=== PATIENT | male | born 1975 | race Caucasian/White ===

== ENCOUNTER 2016-11-30 21:23 | Emergency (ER) | payer OTHER | END 2016-11-30 22:30 | disposition left against medical advice (07) | LOC: C.ER 21:23 | DX: R50.9 Fever, unspecified (principal); Z02.9 Encounter for administrative examinations, unspecified ==

== ENCOUNTER 2017-12-23 13:59 | Inpatient (IN) | payer MEDICAID, OTHER ==
[2017-12-23 14:11] VITALS: BMI 22.6
[2017-12-23 15:49] LABS: BASO # 0.1 K/uL (0.0-0.2); BASO % 0.9 % (0.0-2.0); EOS # 0.3 K/uL (0.0-0.7); EOS % 2.7 % (0.0-4.0); HEMOGLOBIN 11.8 g/dL (12.0-18.0); LYMPH # 1.7 K/uL (1.0-4.3); LYMPH % 13.5 % (20.0-40.0); MEAN CORPUSCULAR HGB CONC 34.2 g/dL (33.0-37.0); MEAN PLATELET VOLUME 7.3 fL (7.2-11.7); MONO # 1.2 K/uL (0.0-0.8); MONO % 9.5 % (0.0-10.0); NEUT % 73.4 % (50.0-75.0); RBC 4.06 Mil/uL (4.40-5.90); RED CELL DISTRIBUTION WIDTH 13.1 % (11.5-14.5); WHITE BLOOD COUNT 12.3 K/uL (4.8-10.8)
[2017-12-23 15:57] LABS: INR 1.2; PROTHROMBIN TIME 13.6 SECONDS (9.7-12.2)
--- NOTE | 2017-12-23 15:59 | RAD ---
Date of service: 12/23/2017 PROCEDURE: CHEST RADIOGRAPH, 1 VIEW HISTORY: Chest pain COMPARISON: 09/16/2014. FINDINGS: LUNGS: The lungs are well inflated and clear. PLEURA: No pneumothorax or pleural fluid seen. CARDIOVASCULAR: Normal. OSSEOUS STRUCTURES: No significant abnormalities. VISUALIZED UPPER ABDOMEN: Normal. OTHER FINDINGS: None. IMPRESSION: No active pulmonary disease.
[2017-12-23 16:31] LABS: ALBUMIN 3.3 g/dL (3.5-5.0); BLOOD UREA NITROGEN 10 mg/dL (9-20); CALCIUM 9.2 mg/dl (8.6-10.4); GFR AFRICAN-AMERICAN > 60; GFR NON-AFRICAN AMERICAN > 60
[2017-12-23 16:32] LABS: ALT/SGPT 18 U/L (21-72); AST/SGOT 15 U/L (17-59); B-TYPE NATRIURETIC PEPTIDE 174 pg/mL (0-450); LIPASE 162 U/L (23-300)
[2017-12-23] MEDS ORDERED: Sodium Chloride 0.9% 1,000 ML IV ONE (16:40)
[2017-12-23] MEDS ORDERED: (Novolin R) Insulin Human Regular 100 units/ml vial IV STA (16:41)
[2017-12-23] MEDS ORDERED: (Novolin R) Insulin Human Regular 100 units/ml vial ONE (16:51)
[2017-12-23] MEDS ORDERED: Sodium Chloride 0.9% 1,000 ML ONE (16:51)
--- NOTE | 2017-12-23 17:14 | C.PDOC ---
Time Seen by Provider: 12/23/17 15:08 Chief Complaint (Nursing): Chest Pain History Per: Patient, Family Onset/Duration Of Symptoms: Hrs (2) Current Symptoms Are (Timing): Still Present Context: Travel (Pt drove here from [place]) Severity: Moderate Quality: "Pain" Modifying Factors: Other Indicated Below Alleviating Factors: None Additional History Per: Prior Records Past Medical History Reviewed: Historical Data, Nursing Documentation, Vital Signs Vital Signs: Last Vital Signs Temp 98.2 F 12/23/17 14:11 Pulse 83 12/23/17 14:11 Resp 16 12/23/17 14:11 BP 150/83 12/23/17 14:11 Pulse Ox 96 12/23/17 17:41 - Medical History PMH: Asthma, CAD, Diabetes, HTN, Hypercholesterolemia Surgical History: Appendectomy, Coronary Stent (x4) Family History: States: Unknown Family Hx - Social History Hx Tobacco Use: Yes Hx Alcohol Use: No Hx Substance Use: No - Immunization History Hx Tetanus Toxoid Vaccination: Yes Hx Influenza Vaccination: No Hx Pneumococcal Vaccination: No Review Of Systems Except As Marked, All Systems Reviewed And Found Negative. Constitutional: Positive for: Fever (subjective) Cardiovascular: Positive for: Chest Pain Respiratory: Negative for: Hemoptysis Gastrointestinal: Negative for: Vomiting Musculoskeletal: Negative for: Neck Pain Skin: Positive for: Lesions (draining wound on abdominal wall) Neurological: Negative for: Weakness, Numbness Physical Exam - Physical Exam Appears: No Acute Distress, Chronically Ill Skin: Normal Color, Warm, Dry Head: Atraumatic, Normacephalic Eye(s): bilateral: PERRL, EOMI Neck: Normal ROM, Supple Chest: Symmetrical Cardiovascular: Rhythm Regular Respiratory: Normal Breath Sounds, No Accessory Muscle Use Gastrointestinal/Abdominal: Soft, No Tenderness, Other (Open wound draining pus on LLQ of abdominal wall. Looks like abscess that ruptured.) Extremity: Normal ROM, No Pedal Edema, No Calf Tenderness Neurological/Psych: Oriented x3, Normal Motor, Normal Sensation ED Course And Treatment - Laboratory Results Result Diagrams: 12/23/17 15:45 12/23/17 15:45 Lab Interpretation: Abnormal Interpretation Of Abnormal: Hyperglycemia ECG: Interpreted By Me, Viewed By Me ECG Rhythm: Sinus Rhythm ECG Interpretation: No Acute Changes Rate From EC O2 Sat by Pulse Oximetry: 96 Pulse Ox Interpretation: Normal - Radiology CXR: Viewed By Me, Read By Radiologist CXR Interpretation: Yes: No Acute Disease Progress - Interventions Interventions:: Observation, Intravenous fluid - Medications Administered Oral: Aspirin Intravenous: Other (Insulin) - Data Reviewed Data Reviewed: Lab, Diagnostic imaging, EKG, Old records - Patient Status Patient status: Partially improved - Continuity of Care Discussed patient case with:: Patient, Family-HIPPA compliant, ED Nurse, On- call PMD-pt unassigned - Patient Plan Patient Plan: Admission, Telemetry Disposition Discussed With : Halina Schumacher Comment: She accepted pt on hospitalist service. She requested CTA of chest to r /o PE and CT of abdomen to further evaluate the abscess. They will follow up the results. Doctor Will See Patient In The: Hospital Counseled Patient/Family Regarding: Studies Performed, Diagnosis, Smoking Cessation - Disposition Disposition: HOSPITALIZED Disposition Time: 17:44 Condition: SERIOUS - POA Present On Arrival: Poor Glycemic Control - Clinical Impression Clinical Impression: Acute chest pain, Abscess of abdominal wall, Uncontrolled diabetes mellitus
[2017-12-23] MEDS ORDERED: Dextrose 50% SYRINGE Inj (50 ml) IVP PRN (18:01)
[2017-12-23] MEDS ORDERED: Glucagon Recombinant 1 mg Inj IM PRN (18:01)
[2017-12-23] MEDS ORDERED: Iodixanol 320 MG/ML 100 ML BOTTLE IV ONE (18:01)
--- NOTE | 2017-12-23 18:24 | CT ---
Date of service: 12/23/2017 PROCEDURE: CT Abdomen and Pelvis with contrast HISTORY: LLQ open draining wound, r/o intraabdominal path. COMPARISON: None. TECHNIQUE: Contrast dose: 100 cc Visipaque 320 Radiation dose: Total exam DLP = 330.07 mGy-cm. This CT exam was performed using one or more of the following dose reduction techniques: Automated exposure control, adjustment of the mA and/or kV according to patient size, and/or use of iterative reconstruction technique. FINDINGS: LOWER THORAX: Unremarkable. LIVER: Unremarkable. No gross lesion or ductal dilatation. GALLBLADDER AND BILE DUCTS: Unremarkable. PANCREAS: Unremarkable. No gross lesion or ductal dilatation. SPLEEN: Unremarkable. ADRENALS: Unremarkable. No mass. KIDNEYS AND URETERS: Unremarkable. No hydronephrosis. No solid mass. VASCULATURE: Unremarkable. No aortic aneurysm. BOWEL: Constipation without fecal impaction or obstruction. APPENDIX: Normal appendix. PERITONEUM: Unremarkable. No free fluid. No free air. LYMPH NODES: Unremarkable. No enlarged lymph nodes. BLADDER: Unremarkable. REPRODUCTIVE: Unremarkable. BONES: No acute fracture. OTHER FINDINGS: Cutaneous and subcutaneous collection interposed between the posterior skin surface in the perineum, this is midline with 7 0 caudal length of 5.3 cm and orthogonal measurements of 3.7 x 3.5 cm. There is no evidence of communication with the rectum. Cutaneous and subcutaneous phlegmonous process at the level of the iliac crest. The findings extend from the skin to the rectus muscle. There is no intra-abdominal, intraperitoneal extension. This finding extends from the skin surface to a depth of 2.7 cm. IMPRESSION: Phlegmonous process with central area of necrosis/abscess extending from the skin surface to the perineum posteriorly. There is no evidence of sinus tract or fistulous communication with the rectum or intraperitoneal Structures.
--- NOTE | 2017-12-23 18:25 | CT ---
Date of service: 12/23/2017 PROCEDURE: CT Chest with contrast (Pulmonary Angiogram) HISTORY: Chest pain, r/o PE COMPARISON: None available. TECHNIQUE: Axial computed tomography images were obtained of the chest in the pulmonary arterial phase of enhancement. Coronal and sagittal reformatted images were created and reviewed. Intravenous contrast dose: Radiation dose: Total exam DLP = mGy-cm. This CT exam was performed using one or more of the following dose reduction techniques: Automated exposure control, adjustment of the mA and/or kV according to patient size, and/or use of iterative reconstruction technique. FINDINGS: PULMONARY ARTERIES: Unremarkable. No pulmonary embolism. AORTA: No acute findings. No thoracic aortic aneurysm. LUNGS: 11 millimeter ground-glass density infiltrates in the left upper lobe. PLEURAL SPACES: Minimal bibasilar pleural thickening. HEART: Unremarkable. No cardiomegaly. No significant pericardial effusion. LYMPH NODES: No lymphadenopathy. BONES, CHEST WALL: Unremarkable. No fracture or destructive lesion OTHER FINDINGS: Unremarkable. IMPRESSION: 11 millimeter ground-glass density infiltrates in the left upper lobe. Minimal bibasilar pleural thickening. No pulmonary embolism.
[2017-12-23] MEDS ORDERED: Vancomycin 1 GM 1 GM/250 ML BAG IVPB STA (18:28)
[2017-12-23] MEDS ORDERED: Vancomycin 1 gm/NS 200 ml 1 GM/200 ML BAG IVPB ONE (19:00)
--- NOTE | 2017-12-23 19:09 | CP.PCM.HP ---
History of Present Illness - History of Present Illness History of Present Illness: Patient is a 42 year old male with past medical history of hypertension, diabetes, myocardial infarcation 8 years ago with 4 stents placed, who presents to the ED with complaint of left lower quadrant abdominal abscess, new onset back pain, and chest pain with palpitations. Patient reports waking up this morning at 6AM with sudden sharp back pain that begins in lumbar spine and extends upwards. He reports he recently drove back from [place] 4 days ago. Patient reports he started to feel unwell last weekend and felt weak with subjective fever. He reports having a cyst in left side of abdomen which he tried to squeeze out, but the cyst became enlarged and inflamed. He reports the cyst became more painful last night after he tried to clean it with peroxide. He states palpitations have been occurring for past few days and chest pain began just prior to admission. 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 He reports he can only walk half a block due to exertion. Patient denies chest pressure or light-headed feeling. Patient denies abdominal pain, nausea, vomiting, dysuria, shortness of breath or cough. 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- reports echo done in office that was normal PMHx: NE 8 years ago with 4 stents, asthma, DM, HTN, HLD Meds: atorvastatin 80, glipizide 10mg BID, ramipril 5mg daily, metoprolol XL 25mg, metformin 1000mg PO BID, plavix 75mg PO daily, aspirin 81mg daily, albuterol inhaler twice per month PSHx: appendectomy 30 years ago, stents 8 years ago FamHx: mother with NE in her 40s, recent stents at [facility], DM, HTN; father with asthma old age Social Hx: currently unemployed, smokes 1ppd x 25 years, denies alcohol and drug use; lives with , daughter and son; recently had NE 2 weeks ago Present on Admission - Present on Admission Any Indicators Present on Admission: No History of DVT/PE: No History of Uncontrolled Diabetes: No Review of Systems - Constitutional Constitutional: Fever, Weakness. absent: Chills - EENT Eyes: absent: Change in Vision Nose/Mouth/Throat: absent: Nasal Congestion - Cardiovascular Cardiovascular: Chest Pain, Dyspnea on Exertion, Palpitations. absent: Chest Pain at Rest, Leg Edema, Leg Ulcers, Syncope - Respiratory Respiratory: absent: Cough, Chest Congestion, Pain with Coughing - Gastrointestinal Gastrointestinal: absent: Constipation, Diarrhea, Nausea, Vomiting - Genitourinary Genitourinary: absent: Change in Urinary Stream, Difficulty Urinating, Dysuria - Musculoskeletal Musculoskeletal: Back Pain - Integumentary Integumentary: Wounds. absent: Rash, Swelling - Neurological Neurological: absent: Focal Weakness, Headaches, Paresthesias Past Patient History - Infectious Disease Hx of Infectious Diseases: None - Past Social History Smoking Status: Light Smoker < 10 Cigarettes Daily - CARDIAC Hx Hypercholesterolemia: Yes Hx Hypertension: Yes - PULMONARY Hx Asthma: Yes - ENDOCRINE/METABOLIC Hx Diabetes Mellitus Type 2: Yes - PSYCHIATRIC Hx Substance Use: No - SURGICAL HISTORY Hx Appendectomy: Yes Hx Coronary Stent: Yes (x4) - ANESTHESIA Hx Anesthesia: Yes Hx Anesthesia Reactions: No Meds Allergies/Adverse Reactions: Allergies Allergy/AdvReac Type Severity Reaction Status Date / Time Penicillins Allergy RASH Verified 12/23/17 14:08 Physical Exam - Constitutional Appears: Older Than Stated Age, Other (uncomfortable) - Head Exam Head Exam: ATRAUMATIC, NORMOCEPHALIC - Eye Exam Eye Exam: EOMI - ENT Exam ENT Exam: Mucous Membranes Moist - Neck Exam Neck exam: Negative for: Lymphadenopathy, Tenderness - Respiratory Exam Respiratory Exam: Wheezes (inspiratory and expiratory) - Cardiovascular Exam Cardiovascular Exam: +S1, +S2. absent: JVD, Systolic Murmur - GI/Abdominal Exam GI & Abdominal Exam: Normal Bowel Sounds, Soft. absent: Tenderness - Extremities Exam Extremities exam: Positive for: normal inspection. Negative for: calf tenderness, pedal edema - Back Exam Back exam: paraspinal tenderness (lumbar spine). absent: CVA tenderness (L), CVA tenderness (R) - Neurological Exam Neurological exam: Alert, Oriented x3 - Psychiatric Exam Psychiatric exam: Normal Affect - Skin Skin Exam: Warm Additional comments: superficial left lower quadrant abdominal abscess, approximately 4cm x 2cm, tenderness on palpation Results - Vital Signs Recent Vital Signs: Last Vital Signs Temp 98.2 F 12/23/17 14:11 Pulse 83 12/23/17 14:11 Resp 16 12/23/17 14:11 BP 150/83 12/23/17 14:11 Pulse Ox 96 12/23/17 17:45 - Labs Result Diagrams: 12/23/17 15:45 12/23/17 15:45 Labs: Laboratory Results - last 24 hr 12/23/17 12/23/17 12/23/17 15:45 15:45 15:45 WBC 12.3 H RBC 4.06 L Hgb 11.8 L Hct 34.5 L MCV 85.0 MCH 29.0 MCHC 34.2 RDW 13.1 Plt Count 400 MPV 7.3 Neut % (Auto) 73.4 Lymph % (Auto) 13.5 L [place] % (Auto) 9.5 Eos % (Auto) 2.7 Baso % (Auto) 0.9 Neut # (Auto) 9.0 H Lymph # (Auto) 1.7 [place] # (Auto) 1.2 H Eos # (Auto) 0.3 Baso # (Auto) 0.1 PT 13.6 H INR 1.2 APTT 33 D-Dimer, Quantitative 315 H Sodium 139 Potassium 4.3 Chloride 100 Carbon Dioxide 29 Anion Gap 14 BUN 10 Creatinine 0.5 L Est GFR ( Amer) > 60 Est GFR (Non-Af Amer) > 60 POC Glucose (mg/dL) Random Glucose 459 H* Calcium 9.2 Total Bilirubin 0.4 AST 15 L ALT 18 L D Alkaline Phosphatase 192 H Troponin I < 0.0120 NT-Pro-B Natriuret Pep 174 Total Protein 6.6 Albumin 3.3 L Globulin 3.3 Albumin/Globulin Ratio 1.0 Lipase 162 12/23/17 18:20 WBC RBC Hgb Hct MCV MCH MCHC RDW Plt Count MPV Neut % (Auto) Lymph % (Auto) [place] % (Auto) Eos % (Auto) Baso % (Auto) Neut # (Auto) Lymph # (Auto) [place] # (Auto) Eos # (Auto) Baso # (Auto) PT INR APTT D-Dimer, Quantitative Sodium Potassium Chloride Carbon Dioxide Anion Gap BUN Creatinine Est GFR ( Amer) Est GFR (Non-Af Amer) POC Glucose (mg/dL) 327 H Random Glucose Calcium Total Bilirubin AST ALT Alkaline Phosphatase Troponin I NT-Pro-B Natriuret Pep Total Protein Albumin Globulin Albumin/Globulin Ratio Lipase Assessment & Plan - Assessment and Plan (Free Text) Assessment: Chest Pain rule out ACS, Pulmonary Embolus monitor on telemetry first troponin negative EKG with normal sinus rhythm at 90BPM continue to trend DEJA and EKG x 2 check echo d-dimer 315 will check lower extremity dopplers to rule out DVT CT Chest 12/23/17: 11mm ground glass density infiltrates in left upper lobe. minimal bibasilar pleural thickening. no pulmonary embolus (see full report) Uncontrolled Diabetes glucose 459 on admission, repeat fingerstick 327 after 8 units IV insulin accuchecks ACHS medium dose ISS check A1c with AM labs heart healthy diet with moderate consistent carbs hold home medications metformin 1000mg PO BID due to IV contrast administration with CT hold home medication glipizide 10mg PO BID pending A1c value hypoglycemia protocol Abscess CT 12/23/17: cutaneous and subcutaneous collection interposed between the posterior skin surface in the perineum this is midline with caudal length 5.3cm and orthogonal measurements 3.7x3.5cm. no evidence of communication with rectum. cutaneous and subcutaneous phlegmonous process at the level of the iliac crest. findings extend from the skin to the rectus muscle. there is no intra-abdominal intraperitoneal extension. this finding extends from the skin surface to a depth of 2.7cm (see full report) starting vancomycin 1g Q12h and aztreonam 1gQ8 hours due to penicillin allergy surgery, Dr. Matos, consulted- help appreciated Back Pain no CVA tenderness no pathology seen on CT or chest xray start morphine 1mg IV moderate pain, 2mg severe pain CAD continue home meds aspirin 81mg, plavix 75mg HTN continue home medication equivalent of ramipril 5mg continue home medication Toprol XL 25mg daily patient did not take blood pressure medications on day of admission continue to monitor HLD continue home medication equivalent, crestor 40mg Asthma albuterol nebulizer q6prn shortness of breath Tobacco use patient urged to quit smoking patient counseled on detrimental effects of smoking on his health nicotine patch 21mg/24h ordered Prophylactic measure heparin sc 5000u q8h PT/ OT
[2017-12-23] MEDS ORDERED: Albuterol 0.083% Inhal Sol (2.5 mg/3 mL) UD INH PRN (19:11)
[2017-12-23] MEDS: Vancomycin 1 gm/NS 200 ml 1 GM/200 ML BAG IVPB SCH (19:11)
[2017-12-23 19:41] LABS: URINE BILIRUBIN NEGATIVE (NEGATIVE); URINE BLOOD 1+ (NEGATIVE); URINE CLARITY Clear (Clear); URINE COLOR Straw (YELLOW); URINE GLUCOSE (UA) 3+ mg/dL (Normal); URINE LEUKOCYTE ESTERASE NEG Leu/uL (Negative); URINE PROTEIN 2+ mg/dL (NEGATIVE); URINE UROBILINOGEN NORMAL mg/dL (0.2-1.0)
[2017-12-23] MEDS: Metoprolol Succinate 25 mg XL Tab PO SCH (19:48)
--- NOTE | 2017-12-23 20:38 | CP.PCM.CON ---
<Mendez Dunne - Last Filed: 12/23/17 20:50> History of Present Illness - History of Present Illness History of Present Illness: Surgery: Dr. Matos CC: Abscess abdominal wall and gluteal HPI: 42M w. pmh of HTN, hypercholesterolemia, CAD, [place], DM, asthma presents to ED for evaluation of abscess. Pt states that he drove back from [place] 5 days ago. He states that he initially noticed a small bump on the L side of his abdomen. The bump began to grow and become painful. He states that the other day he tried to pop it. A small amount of fluid came out, but the following day he states that it was much larger and painful. He states that the pain is now 10 /10 and constant. Pt reports F/C, no N/V. No changes in appetite. He reports having normal BMs. He states that he has been having lower back pain. Pain has been presents for 5 days as well and has been progressively worsening. In ED pt had CT done which showed phlegmonous change in L abdominal wall as well as gluteal abscess. PMH: see above PSH: appendectomy Meds: MAR reviewed ALL: PCN Social: 1PPD, no ETOH/drugs Fhx: [place]/DM-Mother Review of Systems - Review of Systems All systems: reviewed and no additional remarkable complaints except (HPI) Past Patient History - Infectious Disease Hx of Infectious Diseases: None - Past Social History Smoking Status: Light Smoker < 10 Cigarettes Daily - CARDIAC Hx Hypercholesterolemia: Yes Hx Hypertension: Yes - PULMONARY Hx Asthma: Yes - ENDOCRINE/METABOLIC Hx Diabetes Mellitus Type 2: Yes - PSYCHIATRIC Hx Substance Use: No - SURGICAL HISTORY Hx Appendectomy: Yes Hx Coronary Stent: Yes (x4) - ANESTHESIA Hx Anesthesia: Yes Hx Anesthesia Reactions: No Meds Allergies/Adverse Reactions: Allergies Allergy/AdvReac Type Severity Reaction Status Date / Time Penicillins Allergy RASH Verified 12/23/17 14:08 - Medications Medications: Current Medications Acetaminophen (Tylenol 325mg Tab) 650 mg PO Q6 PRN PRN Reason: Fever >100.4 F Albuterol Sulfate (Albuterol 0.083% Inhal [place] (2.5 Mg/3 Ml) Ud) 2.5 mg INH RQ6 PRN PRN Reason: Shortness of Breath Aspirin (Ecotrin) 81 mg PO DAILY [facility] Clopidogrel Bisulfate (Plavix) 75 mg PO DAILY [facility] Dextrose (Dextrose 50% Inj) 0 ml IVP .STAT PRN; Protocol PRN Reason: Hypoglycemia Protocol Dextrose (Glutose 15) 0 gm PO .ONCE PRN; Protocol PRN Reason: Hypoglycemia Protocol Glucagon (Glucagen Diagnostic Kit) 0 mg IM .STAT PRN; Protocol PRN Reason: Hypoglycemia Protocol Heparin Sodium (Porcine) (Heparin) 5,000 units SC Q8 [facility] Dextrose (Dextrose 5% In Water 1000 Ml) 1,000 mls @ 0 mls/hr IV .Q0M PRN; Protocol; Per Protocol PRN Reason: Hypoglycemia Protocol Vancomycin/Sodium Chloride (Vancomycin 1 Gm/Ns 200 Ml) 1 gm in 200 mls @ 133 mls/hr IVPB Q12H [facility] PRN Reason: Protocol Stop: 12/28/17 19:01 Last Admin: 12/23/17 19:11 Dose: 133 mls/hr Aztreonam 1 gm/ Sodium (Chloride) 100 mls @ 100 mls/hr IVPB Q8H [facility] PRN Reason: Protocol Insulin Human Regular (Novolin R) 0 unit SC ACHS [facility] PRN Reason: Protocol Lisinopril (Zestril) 10 mg PO DAILY [facility] Metoprolol Succinate (Toprol Xl) 25 mg PO DAILY [facility] Last Admin: 12/23/17 19:48 Dose: 25 mg Morphine Sulfate (Morphine) 2 mg IVP Q4 PRN PRN Reason: Pain, severe (8-10) Morphine Sulfate (Morphine) 1 mg IVP Q4 PRN PRN Reason: Pain, moderate (4-7) Last Admin: 12/23/17 20:08 Dose: 1 mg Nicotine (Nicoderm Cq) 1 patch TD DAILY [facility] Last Admin: 12/23/17 19:48 Dose: 1 patch Rosuvastatin Calcium (Crestor) 40 mg PO [facility] Physical Exam - Constitutional Appears: Non-toxic, No Acute Distress, Older Than Stated Age - Head Exam Head Exam: ATRAUMATIC, NORMOCEPHALIC - Eye Exam Eye Exam: EOMI - ENT Exam ENT Exam: Mucous Membranes Moist - Neck Exam Neck exam: Positive for: Full Rom - Respiratory Exam Respiratory Exam: NORMAL BREATHING PATTERN. absent: Accessory Muscle Use, Respiratory Distress - Cardiovascular Exam Additional comments: regular rate - GI/Abdominal Exam GI & Abdominal Exam: Soft. absent: Distended, Firm, Guarding, Rebound, Rigid Additional comments: LLQ mass ~6x3cm, tender, surrounding induration, no erythema, scant pus expressed on palpation - Rectal Exam Rectal Exam: NORMAL INSPECTION - Extremities Exam Extremities exam: Negative for: calf tenderness, pedal edema - Neurological Exam Neurological exam: Alert, Oriented x3 - Skin Additional comments: R gluteal abscess to R of midline over coccygeal area, fluctuant, tender, pus draining Results - Vital Signs Recent Vital Signs: Last Vital Signs Temp 98.3 F 12/23/17 19:00 Pulse 83 12/23/17 19:00 Resp 19 12/23/17 19:00 BP 163/92 H 12/23/17 19:00 Pulse Ox 99 12/23/17 19:00 - Labs Result Diagrams: 12/23/17 15:45 12/23/17 15:45 Labs: Laboratory Results - last 24 hr 12/23/17 12/23/17 12/23/17 15:45 15:45 15:45 WBC 12.3 H RBC 4.06 L Hgb 11.8 L Hct 34.5 L MCV 85.0 MCH 29.0 MCHC 34.2 RDW 13.1 Plt Count 400 MPV 7.3 Neut % (Auto) 73.4 Lymph % (Auto) 13.5 L [place] % (Auto) 9.5 Eos % (Auto) 2.7 Baso % (Auto) 0.9 Neut # (Auto) 9.0 H Lymph # (Auto) 1.7 [place] # (Auto) 1.2 H Eos # (Auto) 0.3 Baso # (Auto) 0.1 PT 13.6 H INR 1.2 APTT 33 D-Dimer, Quantitative 315 H Sodium 139 Potassium 4.3 Chloride 100 Carbon Dioxide 29 Anion Gap 14 BUN 10 Creatinine 0.5 L Est GFR ( Amer) > 60 Est GFR (Non-Af Amer) > 60 POC Glucose (mg/dL) Random Glucose 459 H* Calcium 9.2 Total Bilirubin 0.4 AST 15 L ALT 18 L D Alkaline Phosphatase 192 H Troponin I < 0.0120 NT-Pro-B Natriuret Pep 174 Total Protein 6.6 Albumin 3.3 L Globulin 3.3 Albumin/Globulin Ratio 1.0 Lipase 162 Urine Color Urine Clarity Urine pH Ur Specific [place] Urine Protein Urine Glucose (UA) Urine Ketones Urine Blood Urine Nitrate Urine Bilirubin Urine Urobilinogen Ur Leukocyte Esterase Urine WBC (Auto) Urine RBC (Auto) 12/23/17 12/23/17 18:20 19:28 WBC RBC Hgb Hct MCV MCH MCHC RDW Plt Count MPV Neut % (Auto) Lymph % (Auto) [place] % (Auto) Eos % (Auto) Baso % (Auto) Neut # (Auto) Lymph # (Auto) [place] # (Auto) Eos # (Auto) Baso # (Auto) PT INR APTT D-Dimer, Quantitative Sodium Potassium Chloride Carbon Dioxide Anion Gap BUN Creatinine Est GFR ( Amer) Est GFR (Non-Af Amer) POC Glucose (mg/dL) 327 H Random Glucose Calcium Total Bilirubin AST ALT Alkaline Phosphatase Troponin I NT-Pro-B Natriuret Pep Total Protein Albumin Globulin Albumin/Globulin Ratio Lipase Urine Color Straw Urine Clarity Clear Urine pH 5.0 Ur Specific [place] 1.044 H Urine Protein 2+ H Urine Glucose (UA) 3+ H Urine Ketones 1+ H Urine Blood 1+ H Urine Nitrate Negative Urine Bilirubin Negative Urine Urobilinogen Normal Ur Leukocyte Esterase Neg Urine WBC (Auto) < 1 Urine RBC (Auto) 6 H - Imaging and Cardiology CT scan - abdomen Status: Image reviewed by me, Report reviewed by me Assessment & Plan - Assessment and Plan (Free Text) Assessment: 42M w. extensive cardiac hx and uncontrolled DM, presents to ED w. multiple abscesses -will need OR for I&D, consent in chart, risks/benefits d/w pt -NPO -IVF -abx -awaiting medical/cardiac clearance -Need for tight glycemic control d/w medicine -d/w attending Vibha PGY4 <Josey Matos - Last Filed: 12/25/17 12:01> Meds - Medications Medications: Current Medications Acetaminophen (Tylenol 325mg Tab) 650 mg PO Q6 PRN PRN Reason: Fever >100.4 F Last Admin: 12/24/17 21:32 Dose: 650 mg Albuterol Sulfate (Albuterol 0.083% Inhal [place] (2.5 Mg/3 Ml) Ud) 2.5 mg INH RQ6 PRN PRN Reason: Shortness of Breath Aspirin (Ecotrin) 81 mg PO DAILY [facility] Last Admin: 12/25/17 09:27 Dose: Not Given Clopidogrel Bisulfate (Plavix) 75 mg PO DAILY [facility] Last Admin: 12/24/17 10:19 Dose: 75 mg Dextrose (Dextrose 50% Inj) 0 ml IVP .STAT PRN; Protocol PRN Reason: Hypoglycemia Protocol Dextrose (Glutose 15) 0 gm PO .ONCE PRN; Protocol PRN Reason: Hypoglycemia Protocol Glucagon (Glucagen Diagnostic Kit) 0 mg IM .STAT PRN; Protocol PRN Reason: Hypoglycemia Protocol Heparin Sodium (Porcine) (Heparin) 5,000 units SC Q8 [facility] Last Admin: 12/24/17 21:34 Dose: 5,000 units Hydromorphone HCl (Dilaudid) 0.5 mg IVP Q10M PRN PRN Reason: Pain, moderate (4-7) Stop: 12/25/17 13:49 Dextrose (Dextrose 5% In Water 1000 Ml) 1,000 mls @ 0 mls/hr IV .Q0M PRN; Protocol; Per Protocol PRN Reason: Hypoglycemia Protocol Sodium Chloride (Sodium Chloride 0.9%) 1,000 mls @ 75 mls/hr IV .[id number] [facility] Last Admin: 12/25/17 07:30 Dose: Not Given Vancomycin HCl 1,250 mg/ (Sodium Chloride) 250 mls @ 166.6 mls/hr IVPB Q12H [facility] PRN Reason: Protocol Last Admin: 12/25/17 06:32 Dose: 166.6 mls/hr Clindamycin Phosphate 600 mg/ (Sodium Chloride) 54 mls @ 100 mls/hr IVPB Q8H [facility] PRN Reason: Protocol Last Admin: 12/25/17 05:17 Dose: 100 mls/hr Insulin Human Isoph/Insulin Regular (Novolin 70/30 (70/30 Units/Ml) 10 Ml) 14 units SC ACD [facility] Last Admin: 12/24/17 17:24 Dose: 14 units Insulin Human Isoph/Insulin Regular (Novolin 70/30 (70/30 Units/Ml) 10 Ml) 18 units SC ACB [facility] Last Admin: 12/25/17 07:26 Dose: Not Given Insulin Human NPH (Novolin N) 8 unit SC HS [facility] Insulin Human Regular (Novolin R) 0 unit SC ACHS [facility] PRN Reason: Protocol Last Admin: 12/25/17 11:54 Dose: Not Given Lactobacillus Acidophilus (Bacid Acidophilus) 1 cap PO BID [facility] Last Admin: 12/25/17 09:57 Dose: Not Given Lisinopril (Zestril) 10 mg PO DAILY [facility] Last Admin: 12/25/17 09:28 Dose: Not Given Metoprolol Succinate (Toprol Xl) 25 mg PO DAILY [facility] Last Admin: 12/25/17 09:28 Dose: Not Given Morphine Sulfate (Morphine) 2 mg IVP Q4 PRN PRN Reason: Pain, severe (8-10) Last Admin: 12/25/17 04:26 Dose: 2 mg Morphine Sulfate (Morphine) 1 mg IVP Q4 PRN PRN Reason: Pain, moderate (4-7) Last Admin: 12/24/17 16:15 Dose: 1 mg Nicotine (Nicoderm Cq) 1 patch TD DAILY [facility] Last Admin: 12/24/17 10:25 Dose: 1 patch Ondansetron HCl (Zofran Inj) 4 mg IVP ONCE PRN PRN Reason: Nausea/Vomiting Stop: 12/25/17 13:49 Ondansetron HCl (Zofran Inj) 4 mg IVP Q4 PRN PRN Reason: Nausea/Vomiting Rosuvastatin Calcium (Crestor) 40 mg PO [facility] Last Admin: 12/24/17 21:31 Dose: 40 mg Results - Vital Signs Recent Vital Signs: Last Vital Signs Temp 99.1 F 12/25/17 07:15 Pulse 88 12/25/17 07:15 Resp 20 12/25/17 07:15 BP 147/86 12/25/17 07:15 Pulse Ox 97 12/25/17 07:15 - Labs Result Diagrams: 12/25/17 07:08 12/25/17 07:08 Labs: Laboratory Results - last 24 hr 12/24/17 12/24/17 12/25/17 16:52 20:55 06:09 WBC RBC Hgb Hct MCV MCH MCHC RDW Plt Count MPV PT INR APTT Sodium Potassium Chloride Carbon Dioxide Anion Gap BUN Creatinine Est GFR ( Amer) Est GFR (Non-Af Amer) POC Glucose (mg/dL) 224 H 189 H 227 H Random Glucose Calcium Phosphorus Magnesium Total Bilirubin AST ALT Alkaline Phosphatase Total Protein Albumin Globulin Albumin/Globulin Ratio Blood Type Antibody Screen 12/25/17 12/25/17 12/25/17 07:08 07:08 07:08 WBC 17.7 H RBC 3.73 L Hgb 11.0 L Hct 31.6 L MCV 84.8 MCH 29.4 MCHC 34.7 RDW 13.0 Plt Count 447 H MPV 7.5 PT 15.1 H INR 1.4 APTT 31 Sodium 139 Potassium 3.9 Chloride 103 Carbon Dioxide 22 Anion Gap 18 BUN 8 L Creatinine 0.5 L Est GFR ( Amer) > 60 Est GFR (Non-Af Amer) > 60 POC Glucose (mg/dL) Random Glucose 231 H Calcium 8.7 Phosphorus 3.3 Magnesium 1.6 Total Bilirubin 0.4 AST 10 L D ALT 15 L D Alkaline Phosphatase 128 H Total Protein 6.3 Albumin 2.9 L Globulin 3.3 Albumin/Globulin Ratio 0.9 L Blood Type Antibody Screen 12/25/17 07:08 WBC RBC Hgb Hct MCV MCH MCHC RDW Plt Count MPV PT INR APTT Sodium Potassium Chloride Carbon Dioxide Anion Gap BUN Creatinine Est GFR ( Amer) Est GFR (Non-Af Amer) POC Glucose (mg/dL) Random Glucose Calcium Phosphorus Magnesium Total Bilirubin AST ALT Alkaline Phosphatase Total Protein Albumin Globulin Albumin/Globulin Ratio Blood Type O POSITIVE Antibody Screen Negative Assessment & Plan - Assessment and Plan (Free Text) Plan: Patient seen and examined. Agree with above. High cardiac risk for surgery and does not need urgent operative intervention. On dual anti-platelet therapy for 4 stents. Poorly controlled DM, active smoker, hypertension. Abdominal wall abscess open. Perirectal abscess spontaneously draining. Continue cardiac work- up and optimization. If fails to respond to antibiotics, will need operative debridement of abdominal wall and EUA of gwen-rectal abscess.
[2017-12-23] MEDS: Aztreonam 1 GM in Sodium Chloride 0.9% 100 ML IVPB SCH (20:46)
[2017-12-23] MEDS: (Novolin R) Insulin Human Regular 100 units/ml vial SC SCH (21:55)
[2017-12-23] MEDS ORDERED: (Novolin R) Insulin Human Regular 100 units/ml vial SC SCH (22:00)
[2017-12-23 22:03] LABS: CK-MB 0.33 ng/mL (0.0-3.38)
[2017-12-24] MEDS: Aztreonam 1 GM in Sodium Chloride 0.9% 100 ML IVPB SCH ×3 (03:32→18:34)
[2017-12-24] MEDS: Sodium Chloride 0.9% 1,000 ML IV SCH ×2 (04:44→17:50)
[2017-12-24 04:46] LABS: CK-MB 0.26 ng/mL (0.0-3.38)
[2017-12-24 06:48] LABS: BASO % 0.3 % (0.0-2.0); EOS # 0.3 K/uL (0.0-0.7); EOS % 1.7 % (0.0-4.0); HEMOGLOBIN 11.1 g/dL (12.0-18.0); LYMPH # 1.7 K/uL (1.0-4.3); LYMPH % 11.1 % (20.0-40.0); MEAN CELL VOLUME 85.2 fL (80.0-94.0); MEAN CORPUSCULAR HEMOGLOBIN 29.3 pg (27.0-31.0); MEAN CORPUSCULAR HGB CONC 34.4 g/dL (33.0-37.0); MEAN PLATELET VOLUME 7.5 fL (7.2-11.7); MONO # 1.6 K/uL (0.0-0.8); MONO % 10.3 % (0.0-10.0); NEUT % 76.6 % (50.0-75.0); RBC 3.79 Mil/uL (4.40-5.90); RED CELL DISTRIBUTION WIDTH 13.1 % (11.5-14.5); WHITE BLOOD COUNT 15.6 K/uL (4.8-10.8)
[2017-12-24 06:57] LABS: ALBUMIN 3.3 g/dL (3.5-5.0); ALT/SGPT 21 U/L (21-72); AST/SGOT 55 U/L (17-59); BLOOD UREA NITROGEN 7 mg/dL (9-20); GFR AFRICAN-AMERICAN > 60; GFR NON-AFRICAN AMERICAN > 60; HDL CHOLESTEROL 24 mg/dL (30-70)
[2017-12-24 07:07] LABS: LDL CHOLESTEROL 42 mg/dL (0-129)
[2017-12-24] MEDS: Vancomycin 1 gm/NS 200 ml 1 GM/200 ML BAG IVPB SCH (07:40)
[2017-12-24] MEDS: (Novolin R) Insulin Human Regular 100 units/ml vial SC SCH ×4 (08:15→21:02)
[2017-12-24] MEDS: Metoprolol Succinate 25 mg XL Tab PO SCH (10:18)
--- NOTE | 2017-12-24 10:35 | CP.PCM.CON ---
History of Present Illness - History of Present Illness History of Present Illness: Humza Juarez, PGY1 Cardiology Consult Note for Dr. Garcia Patient is a 42 y/o M with PMHx of HTN, DM, AL (8 years ago; stents x4) who presented to the ED for left lower abdominal pain. Patent said that he had a cyst ([id number]) on his lower abdomen and he started picking at it and squeezing it; as a result, it became more inflamed. In the ED, patient was also c/o lower back pain and chest discomfort likely due to radiation of left lower quadrant pain. In the ED, patient's CXR was negative for pulmonary pathology. Chest CT was also negative for PE. EKG was NSR with no ST changes. Troponins negative x3 , Leukocytosis wbc 15.6. ECHO was done on 12/23, official read pending. Patient's vital signs stable: T 98.5, HR 95, BP 149/85, RR 20. Surgery was consulted for left lower quadrant abscess; plan for I&D. Cardiology consulted for pre-op clearance. Patient examined at bedside this morning. Denies chest pain, palpitations, shortness of breath, nausea, vomiting, diarrhea, and pain in the upper and lower extremities. Patient did have left lower quadrant abdominal tenderness with radiation of pain to the lumbar region. Patient confirmed that he had an AL 8 years ago with 4 stents placed. 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 He lives a sedentary lifestyle, however, he has adequate exercise tolerance and does not get short of breath with exertion. Patient does not show signs of ischemic chest pain and is not in acute distress. It is important to note that patient is not experiencing chest pain or discomfort that was similar to his chest pain encountered 8 years ago ( AL s/p stents x4). A Full 12 point ROS was conducted and unremarkable except as stated above. PMHx: HTN, DM, AL (8 years ago; s/p stents x4) Meds: atorvastatin 80, glipizide 10mg BID, ramipril 5mg daily, metoprolol XL 25mg, metformin 1000mg PO BID, plavix 75mg PO daily, aspirin 81mg daily, albuterol inhaler twice per month Allergies: Penicillins PSHx: appendectomy (30 years ago), stents (8 years ago) FamHx: mother with AL in her 40s, DM, HTN; father with asthma old age Social Hx: smokes 1ppd x 25 years, denies alcohol and drug use; lives with , daughter and son Review of Systems - Review of Systems All systems: reviewed and no additional remarkable complaints except (as per HPI.) Past Patient History - Infectious Disease Hx of Infectious Diseases: None - Past Medical History & Family History Past Medical History?: Yes - Past Social History Smoking Status: Heavy Smoker > 10 Cigarettes Daily - CARDIAC Hx Heart Attack: Yes Hx Hypercholesterolemia: Yes Hx Hypertension: Yes - PULMONARY Hx Asthma: Yes - NEUROLOGICAL Hx Neurological Disorder: No - HEENT Hx HEENT Problems: No - RENAL Hx Chronic Kidney Disease: No - ENDOCRINE/METABOLIC Hx Diabetes Mellitus Type 2: Yes - HEMATOLOGICAL/ONCOLOGICAL Hx Blood Disorders: No - INTEGUMENTARY Hx Dermatological Problems: No - MUSCULOSKELETAL/RHEUMATOLOGICAL Hx Musculoskeletal Disorders: No Hx Falls: No - GASTROINTESTINAL Hx Gastrointestinal Disorders: No - GENITOURINARY/GYNECOLOGICAL Hx Genitourinary Disorders: No - PSYCHIATRIC Hx Psychophysiologic Disorder: No Hx Substance Use: No - SURGICAL HISTORY Hx Appendectomy: Yes Hx Coronary Stent: Yes (x4) - ANESTHESIA Hx Anesthesia: Yes Hx Anesthesia Reactions: No Meds Allergies/Adverse Reactions: Allergies Allergy/AdvReac Type Severity Reaction Status Date / Time Penicillins Allergy RASH Verified 12/23/17 14:08 - Medications Medications: Current Medications Acetaminophen (Tylenol 325mg Tab) 650 mg PO Q6 PRN PRN Reason: Fever >100.4 F Last Admin: 12/23/17 21:55 Dose: 650 mg Albuterol Sulfate (Albuterol 0.083% Inhal [place] (2.5 Mg/3 Ml) Ud) 2.5 mg INH RQ6 PRN PRN Reason: Shortness of Breath Aspirin (Ecotrin) 81 mg PO DAILY [facility] Clopidogrel Bisulfate (Plavix) 75 mg PO DAILY [facility] Dextrose (Dextrose 50% Inj) 0 ml IVP .STAT PRN; Protocol PRN Reason: Hypoglycemia Protocol Dextrose (Glutose 15) 0 gm PO .ONCE PRN; Protocol PRN Reason: Hypoglycemia Protocol Glucagon (Glucagen Diagnostic Kit) 0 mg IM .STAT PRN; Protocol PRN Reason: Hypoglycemia Protocol Heparin Sodium (Porcine) (Heparin) 5,000 units SC Q8 [facility] Last Admin: 12/24/17 06:12 Dose: Not Given Dextrose (Dextrose 5% In Water 1000 Ml) 1,000 mls @ 0 mls/hr IV .Q0M PRN; Protocol; Per Protocol PRN Reason: Hypoglycemia Protocol Vancomycin/Sodium Chloride (Vancomycin 1 Gm/Ns 200 Ml) 1 gm in 200 mls @ 133 mls/hr IVPB Q12H [facility] PRN Reason: Protocol Stop: 12/28/17 19:01 Last Admin: 12/24/17 07:40 Dose: 133 mls/hr Aztreonam 1 gm/ Sodium (Chloride) 100 mls @ 100 mls/hr IVPB Q8H [facility] PRN Reason: Protocol Last Admin: 12/24/17 03:32 Dose: 100 mls/hr Sodium Chloride (Sodium Chloride 0.9%) 1,000 mls @ 75 mls/hr IV .[id number] [facility] Last Admin: 12/24/17 04:44 Dose: 75 mls/hr Insulin Human Regular (Novolin R) 0 unit SC ACHS [facility] PRN Reason: Protocol Last Admin: 12/24/17 08:15 Dose: 3 units Lisinopril (Zestril) 10 mg PO DAILY [facility] Metoprolol Succinate (Toprol Xl) 25 mg PO DAILY [facility] Last Admin: 12/23/17 19:48 Dose: 25 mg Morphine Sulfate (Morphine) 2 mg IVP Q4 PRN PRN Reason: Pain, severe (8-10) Last Admin: 12/24/17 06:23 Dose: 2 mg Morphine Sulfate (Morphine) 1 mg IVP Q4 PRN PRN Reason: Pain, moderate (4-7) Last Admin: 12/23/17 20:08 Dose: 1 mg Nicotine (Nicoderm Cq) 1 patch TD DAILY [facility] Last Admin: 12/23/17 19:48 Dose: 1 patch Rosuvastatin Calcium (Crestor) 40 mg PO HS [facility] Last Admin: 12/23/17 21:55 Dose: 40 mg Physical Exam - Constitutional Appears: Well - Head Exam Head Exam: ATRAUMATIC, NORMAL INSPECTION, NORMOCEPHALIC - Eye Exam Eye Exam: EOMI, Normal appearance, PERRL - ENT Exam ENT Exam: Mucous Membranes Moist, Normal Exam - Neck Exam Neck exam: Positive for: Full Rom, Normal Inspection - Respiratory Exam Respiratory Exam: Clear to Auscultation Bilateral. absent: Accessory Muscle Use , Chest Wall Tenderness, Rales, Rhonchi, Wheezes, Respiratory Distress, Stridor - Cardiovascular Exam Cardiovascular Exam: RRR, +S1, +S2 - GI/Abdominal Exam GI & Abdominal Exam: Normal Bowel Sounds, Soft, Tenderness (tenderness at the left lower quadrant with radiation to lumbar ). absent: Distended, Guarding, Organomegaly, Pulsatile Mass, Rebound, Rigid Additional comments: Left lower quadrant abscess ([id number] dressing placed) - Extremities Exam Extremities exam: Positive for: normal inspection, pedal pulses present. Negative for: calf tenderness, pedal edema, tenderness Additional comments: Negative for pitting edema - Back Exam Back exam: tenderness (Likely due to radiation from abscess at left low quadrant ) - Neurological Exam Neurological exam: Alert, Oriented x3 - Skin Skin Exam: Dry, Intact, Normal Color, Warm Results - Vital Signs Recent Vital Signs: Last Vital Signs Temp 98.5 F 12/24/17 07:00 Pulse 95 H 12/24/17 07:00 Resp 20 12/24/17 07:00 BP 149/85 12/24/17 07:00 Pulse Ox 99 12/24/17 07:00 - Labs Result Diagrams: 12/24/17 06:35 12/24/17 06:35 Labs: Laboratory Results - last 24 hr 12/23/17 12/23/17 12/23/17 15:45 15:45 15:45 WBC 12.3 H RBC 4.06 L Hgb 11.8 L Hct 34.5 L MCV 85.0 MCH 29.0 MCHC 34.2 RDW 13.1 Plt Count 400 MPV 7.3 Neut % (Auto) 73.4 Lymph % (Auto) 13.5 L Imperial % (Auto) 9.5 Eos % (Auto) 2.7 Baso % (Auto) 0.9 Neut # (Auto) 9.0 H Lymph # (Auto) 1.7 Imperial # (Auto) 1.2 H Eos # (Auto) 0.3 Baso # (Auto) 0.1 PT 13.6 H INR 1.2 APTT 33 D-Dimer, Quantitative 315 H Sodium 139 Potassium 4.3 Chloride 100 Carbon Dioxide 29 Anion Gap 14 BUN 10 Creatinine 0.5 L Est GFR ( Amer) > 60 Est GFR (Non-Af Amer) > 60 POC Glucose (mg/dL) Random Glucose 459 H* Hemoglobin A1c Calcium 9.2 Phosphorus Magnesium Total Bilirubin 0.4 AST 15 L ALT 18 L D Alkaline Phosphatase 192 H Total Creatine Kinase CK-MB (Mass) Troponin I < 0.0120 NT-Pro-B Natriuret Pep 174 Total Protein 6.6 Albumin 3.3 L Globulin 3.3 Albumin/Globulin Ratio 1.0 Triglycerides Cholesterol LDL Cholesterol Direct HDL Cholesterol Lipase 162 Free T4 TSH 3rd Generation Urine Color Urine Clarity Urine pH Ur Specific [place] Urine Protein Urine Glucose (UA) Urine Ketones Urine Blood Urine Nitrate Urine Bilirubin Urine Urobilinogen Ur Leukocyte Esterase Urine WBC (Auto) Urine RBC (Auto) HIV 1&2 Antibody Screen 12/23/17 12/23/17 12/23/17 18:20 19:28 21:40 WBC RBC Hgb Hct MCV MCH MCHC RDW Plt Count MPV Neut % (Auto) Lymph % (Auto) [place] % (Auto) Eos % (Auto) Baso % (Auto) Neut # (Auto) Lymph # (Auto) [place] # (Auto) Eos # (Auto) Baso # (Auto) PT INR APTT D-Dimer, Quantitative Sodium Potassium Chloride Carbon Dioxide Anion Gap BUN Creatinine Est GFR ( Amer) Est GFR (Non-Af Amer) POC Glucose (mg/dL) 327 H Random Glucose Hemoglobin A1c Calcium Phosphorus Magnesium Total Bilirubin AST ALT Alkaline Phosphatase Total Creatine Kinase < 20 L CK-MB (Mass) 0.33 Troponin I < 0.0120 NT-Pro-B Natriuret Pep Total Protein Albumin Globulin Albumin/Globulin Ratio Triglycerides Cholesterol LDL Cholesterol Direct HDL Cholesterol Lipase Free T4 TSH 3rd Generation Urine Color Straw Urine Clarity Clear Urine pH 5.0 Ur Specific [place] 1.044 H Urine Protein 2+ H Urine Glucose (UA) 3+ H Urine Ketones 1+ H Urine Blood 1+ H Urine Nitrate Negative Urine Bilirubin Negative Urine Urobilinogen Normal Ur Leukocyte Esterase Neg Urine WBC (Auto) < 1 Urine RBC (Auto) 6 H HIV 1&2 Antibody Screen 12/23/17 12/24/17 12/24/17 21:48 04:18 06:35 WBC RBC Hgb Hct MCV MCH MCHC RDW Plt Count MPV Neut % (Auto) Lymph % (Auto) [place] % (Auto) Eos % (Auto) Baso % (Auto) Neut # (Auto) Lymph # (Auto) [place] # (Auto) Eos # (Auto) Baso # (Auto) PT INR APTT D-Dimer, Quantitative Sodium Potassium Chloride Carbon Dioxide Anion Gap BUN Creatinine Est GFR ( Amer) Est GFR (Non-Af Amer) POC Glucose (mg/dL) 260 H Random Glucose Hemoglobin A1c 14.6 H Calcium Phosphorus Magnesium Total Bilirubin AST ALT Alkaline Phosphatase Total Creatine Kinase < 20 L CK-MB (Mass) 0.26 Troponin I < 0.0120 NT-Pro-B Natriuret Pep Total Protein Albumin Globulin Albumin/Globulin Ratio Triglycerides Cholesterol LDL Cholesterol Direct HDL Cholesterol Lipase Free T4 TSH 3rd Generation Urine Color Urine Clarity Urine pH Ur Specific [place] Urine Protein Urine Glucose (UA) Urine Ketones Urine Blood Urine Nitrate Urine Bilirubin Urine Urobilinogen Ur Leukocyte Esterase Urine WBC (Auto) Urine RBC (Auto) HIV 1&2 Antibody Screen 12/24/17 12/24/17 12/24/17 06:35 06:35 06:35 WBC 15.6 H RBC 3.79 L Hgb 11.1 L Hct 32.3 L MCV 85.2 MCH 29.3 MCHC 34.4 RDW 13.1 Plt Count 421 H MPV 7.5 Neut % (Auto) 76.6 H Lymph % (Auto) 11.1 L [place] % (Auto) 10.3 H Eos % (Auto) 1.7 Baso % (Auto) 0.3 Neut # (Auto) 12.0 H Lymph # (Auto) 1.7 [place] # (Auto) 1.6 H Eos # (Auto) 0.3 Baso # (Auto) 0.0 PT INR APTT D-Dimer, Quantitative Sodium 137 Potassium 4.0 Chloride 101 Carbon Dioxide 25 Anion Gap 14 BUN 7 L Creatinine 0.6 L Est GFR ( Amer) > 60 Est GFR (Non-Af Amer) > 60 POC Glucose (mg/dL) Random Glucose 222 H Hemoglobin A1c Calcium 9.0 Phosphorus 3.0 Magnesium 1.6 Total Bilirubin 0.3 AST 55 ALT 21 Alkaline Phosphatase 136 H D Total Creatine Kinase CK-MB (Mass) Troponin I NT-Pro-B Natriuret Pep Total Protein 6.5 Albumin 3.3 L Globulin 3.3 Albumin/Globulin Ratio 1.0 Triglycerides 147 Cholesterol 105 LDL Cholesterol Direct 42 HDL Cholesterol 24 L Lipase Free T4 1.20 TSH 3rd Generation 4.75 H Urine Color Urine Clarity Urine pH Ur Specific [place] Urine Protein Urine Glucose (UA) Urine Ketones Urine Blood Urine Nitrate Urine Bilirubin Urine Urobilinogen Ur Leukocyte Esterase Urine WBC (Auto) Urine RBC (Auto) HIV 1&2 Antibody Screen 12/24/17 12/24/17 06:35 06:35 WBC RBC Hgb Hct MCV MCH MCHC RDW Plt Count MPV Neut % (Auto) Lymph % (Auto) [place] % (Auto) Eos % (Auto) Baso % (Auto) Neut # (Auto) Lymph # (Auto) [place] # (Auto) Eos # (Auto) Baso # (Auto) PT INR APTT D-Dimer, Quantitative Sodium Potassium Chloride Carbon Dioxide Anion Gap BUN Creatinine Est GFR ( Amer) Est GFR (Non-Af Amer) POC Glucose (mg/dL) 222 H Random Glucose Hemoglobin A1c Calcium Phosphorus Magnesium Total Bilirubin AST ALT Alkaline Phosphatase Total Creatine Kinase CK-MB (Mass) Troponin I NT-Pro-B Natriuret Pep Total Protein Albumin Globulin Albumin/Globulin Ratio Triglycerides Cholesterol LDL Cholesterol Direct HDL Cholesterol Lipase Free T4 TSH 3rd Generation Urine Color Urine Clarity Urine pH Ur Specific [place] Urine Protein Urine Glucose (UA) Urine Ketones Urine Blood Urine Nitrate Urine Bilirubin Urine Urobilinogen Ur Leukocyte Esterase Urine WBC (Auto) Urine RBC (Auto) HIV 1&2 Antibody Screen Negative Assessment & Plan - Assessment and Plan (Free Text) Assessment: Patient is a 42 y/o M with PMHx of HTN, DM, AL (8 years ago; stents x4) who presented to the ED for left lower abdominal pain. Patent said that he had a cyst ([id number]) on his lower abdomen and he started picking at it and squeezing it; as a result, it became more inflamed. Surgery was consulted for left lower quadrant abscess; plan for I&D. Cardiology consulted for pre-op clearance. Patient was examined; no chest pain, shortness of breath; no acute distress and denying ischemic symptoms during interview. Plan: 1. Left Lower Quadrant Abdominal Abscess - Patient is cleared for I&D - As per [place]ET[place]/AHA guidelines, patient is undergoing a low risk procedure from a cardiac standpoint; however, patient does have intermediate risk due to significant cardiac related history (AL 8 years ago; stents x4). - 4cm x 2 cm abscess; dressing applied - Surgery consulted; plan for I&D - Spoke with surgery for pre-op clearance 2. AL (8 years ago; stents x4) - Denies chest pain and shortness of breath - No ischemic symptoms during interview - trop negative x3 - CXR negative for acute pulmonary pathology - EKG NSR, no ST changes. - ECHO: official read pending - Patient claims that his prior ECHO (outpatient cardiology) was normal - Patient should follow up with outpatient pantograph machine set up operator 3. HTN - Maintain normal BP - c/w home meds 4. DM - Maintain euglycemia - c/w home meds Dispo: Patient is cleared for I&D. Case was discussed and reviewed with Steward/Stewardess Dr. Garcia.
--- NOTE | 2017-12-24 12:21 | CP.PCM.PN ---
<Argenis Feldman - Last Filed: 12/24/17 17:21> Subjective - Date & Time of Evaluation Date of Evaluation: 12/24/17 Time of Evaluation: 07:30 - Subjective Subjective: General Surgery progress note for Dr. Matos Patient seen and examined this am at bedside. No acute vents overnight per nursing. Patient continues to c/o of pain at the site of the LLQ superficial wound and the perirectal area. patient otherwise denies n/v/f/c and is having normal BM. Objective - Vital Signs/Intake and Output Vital Signs (last 24 hours): Temp Pulse Resp BP Pulse Ox 98.5 F 95 H 20 149/85 99 12/24/17 07:00 12/24/17 07:00 12/24/17 07:00 12/24/17 07:00 12/24/17 07:00 Intake and Output: 12/24/17 12/24/17 06:59 18:59 Intake Total 445 Balance 445 - Medications Medications: Current Medications Acetaminophen (Tylenol 325mg Tab) 650 mg PO Q6 PRN PRN Reason: Fever >100.4 F Last Admin: 12/23/17 21:55 Dose: 650 mg Albuterol Sulfate (Albuterol 0.083% Inhal [place] (2.5 Mg/3 Ml) Ud) 2.5 mg INH RQ6 PRN PRN Reason: Shortness of Breath Aspirin (Ecotrin) 81 mg PO DAILY [facility] Last Admin: 12/24/17 10:18 Dose: 81 mg Clopidogrel Bisulfate (Plavix) 75 mg PO DAILY [facility] Last Admin: 12/24/17 10:19 Dose: 75 mg Dextrose (Dextrose 50% Inj) 0 ml IVP .STAT PRN; Protocol PRN Reason: Hypoglycemia Protocol Dextrose (Glutose 15) 0 gm PO .ONCE PRN; Protocol PRN Reason: Hypoglycemia Protocol Glucagon (Glucagen Diagnostic Kit) 0 mg IM .STAT PRN; Protocol PRN Reason: Hypoglycemia Protocol Heparin Sodium (Porcine) (Heparin) 5,000 units SC Q8 [facility] Last Admin: 12/24/17 06:12 Dose: Not Given Dextrose (Dextrose 5% In Water 1000 Ml) 1,000 mls @ 0 mls/hr IV .Q0M PRN; Protocol; Per Protocol PRN Reason: Hypoglycemia Protocol Aztreonam 1 gm/ Sodium (Chloride) 100 mls @ 100 mls/hr IVPB Q8H [facility] PRN Reason: Protocol Last Admin: 12/24/17 11:46 Dose: 100 mls/hr Sodium Chloride (Sodium Chloride 0.9%) 1,000 mls @ 75 mls/hr IV .[id number] [facility] Last Admin: 12/24/17 04:44 Dose: 75 mls/hr Vancomycin HCl 1,250 mg/ (Sodium Chloride) 250 mls @ 166.6 mls/hr IVPB Q12H [facility] PRN Reason: Protocol Clindamycin Phosphate 600 mg/ (Sodium Chloride) 54 mls @ 100 mls/hr IVPB Q8H [facility] PRN Reason: Protocol Insulin Human Regular (Novolin R) 0 unit SC ACHS [facility] PRN Reason: Protocol Last Admin: 12/24/17 12:13 Dose: 3 units Lisinopril (Zestril) 10 mg PO DAILY [facility] Last Admin: 12/24/17 10:19 Dose: 10 mg Metoprolol Succinate (Toprol Xl) 25 mg PO DAILY [facility] Last Admin: 12/24/17 10:18 Dose: 25 mg Morphine Sulfate (Morphine) 2 mg IVP Q4 PRN PRN Reason: Pain, severe (8-10) Last Admin: 12/24/17 06:23 Dose: 2 mg Morphine Sulfate (Morphine) 1 mg IVP Q4 PRN PRN Reason: Pain, moderate (4-7) Last Admin: 12/23/17 20:08 Dose: 1 mg Nicotine (Nicoderm Cq) 1 patch TD DAILY [facility] Last Admin: 12/24/17 10:25 Dose: 1 patch Rosuvastatin Calcium (Crestor) 40 mg PO HS [facility] Last Admin: 12/23/17 21:55 Dose: 40 mg - Labs Labs: 12/24/17 06:35 12/24/17 06:35 PT 13.6 SECONDS (9.7-12.2) H 12/23/17 15:45 INR 1.2 12/23/17 15:45 APTT 33 SECONDS (21-34) 12/23/17 15:45 - Constitutional Appears: No Acute Distress, Unkempt, Older Than Stated Age - Head Exam Head Exam: ATRAUMATIC, NORMOCEPHALIC - ENT Exam ENT Exam: Mucous Membranes Moist - Respiratory Exam Respiratory Exam: NORMAL BREATHING PATTERN - Cardiovascular Exam Cardiovascular Exam: +S1, +S2 - GI/Abdominal Exam GI & Abdominal Exam: Soft. absent: Distended, Firm, Rigid, Rebound Additional comments: tenderness present over the superficial abscess in the LLQ, no tenderness in the abdomen - Rectal Exam Additional comments: Perirectal abscess draining purulent fluid is present, no extention into the rectal vault - Extremities Exam Extremities Exam: absent: Calf Tenderness, Pedal Edema - Neurological Exam Neurological Exam: Alert, Awake, Oriented x3 - Psychiatric Exam Psychiatric exam: Normal Affect, Normal Mood - Skin Skin Exam: Dry, Erythema Additional comments: LLQ mass ~6x3cm, tender, surrounding induration, no erythema, scant pus expressed on palpation R perirectal abscess pus draining, fluctuance Assessment and Plan - Assessment and Plan (Free Text) Assessment: 42 M with perirectal and superficial LLQ abscess Plan: - will f/u echo results and cardio recs -possible bedside drainage if areas do not continue to drain properly - continue abx per ID recs -continue glucose control per endocrine recs - no plans for procedure in OR at this time - wound care consulted, recs for possible options for gwen-rectal and LLQ wound appreciated - discussed plan with Dr. Matos, all further recs per him Argenis Feldman, PGY 1 <Josey Matos - Last Filed: 12/25/17 10:09> Objective - Vital Signs/Intake and Output Vital Signs (last 24 hours): Temp Pulse Resp BP Pulse Ox 99.1 F 88 20 147/86 97 12/25/17 07:15 12/25/17 07:15 12/25/17 07:15 12/25/17 07:15 12/25/17 07:15 Intake and Output: 12/25/17 12/25/17 06:59 18:59 Intake Total 1620 Balance 1620 - Medications Medications: Current Medications Acetaminophen (Tylenol 325mg Tab) 650 mg PO Q6 PRN PRN Reason: Fever >100.4 F Last Admin: 12/24/17 21:32 Dose: 650 mg Albuterol Sulfate (Albuterol 0.083% Inhal [place] (2.5 Mg/3 Ml) Ud) 2.5 mg INH RQ6 PRN PRN Reason: Shortness of Breath Aspirin (Ecotrin) 81 mg PO DAILY [facility] Last Admin: 12/25/17 09:27 Dose: Not Given Clopidogrel Bisulfate (Plavix) 75 mg PO DAILY [facility] Last Admin: 12/24/17 10:19 Dose: 75 mg Dextrose (Dextrose 50% Inj) 0 ml IVP .STAT PRN; Protocol PRN Reason: Hypoglycemia Protocol Dextrose (Glutose 15) 0 gm PO .ONCE PRN; Protocol PRN Reason: Hypoglycemia Protocol Glucagon (Glucagen Diagnostic Kit) 0 mg IM .STAT PRN; Protocol PRN Reason: Hypoglycemia Protocol Heparin Sodium (Porcine) (Heparin) 5,000 units SC Q8 [facility] Last Admin: 12/24/17 21:34 Dose: 5,000 units Dextrose (Dextrose 5% In Water 1000 Ml) 1,000 mls @ 0 mls/hr IV .Q0M PRN; Protocol; Per Protocol PRN Reason: Hypoglycemia Protocol Sodium Chloride (Sodium Chloride 0.9%) 1,000 mls @ 75 mls/hr IV .[id number] [facility] Last Admin: 12/25/17 07:30 Dose: Not Given Vancomycin HCl 1,250 mg/ (Sodium Chloride) 250 mls @ 166.6 mls/hr IVPB Q12H [facility] PRN Reason: Protocol Last Admin: 12/25/17 06:32 Dose: 166.6 mls/hr Clindamycin Phosphate 600 mg/ (Sodium Chloride) 54 mls @ 100 mls/hr IVPB Q8H [facility] PRN Reason: Protocol Last Admin: 12/25/17 05:17 Dose: 100 mls/hr Insulin Human Isoph/Insulin Regular (Novolin 70/30 (70/30 Units/Ml) 10 Ml) 14 units SC ACD [facility] Last Admin: 12/24/17 17:24 Dose: 14 units Insulin Human Isoph/Insulin Regular (Novolin 70/30 (70/30 Units/Ml) 10 Ml) 18 units SC ACB [facility] Last Admin: 12/25/17 07:26 Dose: Not Given Insulin Human Regular (Novolin R) 0 unit SC ACHS [facility] PRN Reason: Protocol Last Admin: 12/25/17 07:26 Dose: Not Given Lactobacillus Acidophilus (Bacid Acidophilus) 1 cap PO BID [facility] Lisinopril (Zestril) 10 mg PO DAILY [facility] Last Admin: 12/25/17 09:28 Dose: Not Given Metoprolol Succinate (Toprol Xl) 25 mg PO DAILY [facility] Last Admin: 12/25/17 09:28 Dose: Not Given Morphine Sulfate (Morphine) 2 mg IVP Q4 PRN PRN Reason: Pain, severe (8-10) Last Admin: 12/25/17 04:26 Dose: 2 mg Morphine Sulfate (Morphine) 1 mg IVP Q4 PRN PRN Reason: Pain, moderate (4-7) Last Admin: 12/24/17 16:15 Dose: 1 mg Nicotine (Nicoderm Cq) 1 patch TD DAILY [facility] Last Admin: 12/24/17 10:25 Dose: 1 patch Rosuvastatin Calcium (Crestor) 40 mg PO HS [facility] Last Admin: 12/24/17 21:31 Dose: 40 mg - Labs Labs: 12/25/17 07:08 12/25/17 07:08 PT 15.1 SECONDS (9.7-12.2) H 12/25/17 07:08 INR 1.4 12/25/17 07:08 APTT 31 SECONDS (21-34) 12/25/17 07:08 Assessment and Plan - Assessment and Plan (Free Text) Assessment: 42 M significant cardiac history, poorly controlled diabetes, with abdominal wall abscess/wound now necrotic and perirectal abscess with continuing elevation with WBC despite triple Antibiotic coverage. Patient on dual ant- platelt therapy for stents x4. Echo normal EF. Cleared by cardiology Needs abdominal wall debridement and EUA +I+D of perirectal abscess for source control. Risks and benefits of surgery discussed, including increased risk of bleeding on platelet therapy, infection, need for further debridement or drainage procedures, injury to nearby structures, urinary retention. All questions answered and consent obtained.
--- NOTE | 2017-12-24 14:42 | CP.PCM.PN ---
Subjective - Date & Time of Evaluation Date of Evaluation: 12/24/17 Time of Evaluation: 14:36 - Subjective Subjective: Medicine Note for Hospitalist service Pt seen and examined at bedside. Pt reports sharp severe pain when pressing on the abscesses. Pt understands that his uncontrolled diabetes is a major factor that diminishes the healing of the abscesses. He denies symptoms of night sweats, vomiting, indigestion, dizziness, palpitations chest pain, SOB or pain on inspiration. Pt denies calf pain. Objective - Vital Signs/Intake and Output Vital Signs (last 24 hours): Temp Pulse Resp BP Pulse Ox 98.5 F 95 H 20 149/85 99 12/24/17 07:00 12/24/17 07:00 12/24/17 07:00 12/24/17 07:00 12/24/17 07:00 Intake and Output: 12/24/17 12/24/17 06:59 18:59 Intake Total 445 Balance 445 - Medications Medications: Current Medications Acetaminophen (Tylenol 325mg Tab) 650 mg PO Q6 PRN PRN Reason: Fever >100.4 F Last Admin: 12/23/17 21:55 Dose: 650 mg Albuterol Sulfate (Albuterol 0.083% Inhal [place] (2.5 Mg/3 Ml) Ud) 2.5 mg INH RQ6 PRN PRN Reason: Shortness of Breath Aspirin (Ecotrin) 81 mg PO DAILY [facility] Last Admin: 12/24/17 10:18 Dose: 81 mg Clopidogrel Bisulfate (Plavix) 75 mg PO DAILY [facility] Last Admin: 12/24/17 10:19 Dose: 75 mg Dextrose (Dextrose 50% Inj) 0 ml IVP .STAT PRN; Protocol PRN Reason: Hypoglycemia Protocol Dextrose (Glutose 15) 0 gm PO .ONCE PRN; Protocol PRN Reason: Hypoglycemia Protocol Glucagon (Glucagen Diagnostic Kit) 0 mg IM .STAT PRN; Protocol PRN Reason: Hypoglycemia Protocol Heparin Sodium (Porcine) (Heparin) 5,000 units SC Q8 [facility] Last Admin: 12/24/17 06:12 Dose: Not Given Dextrose (Dextrose 5% In Water 1000 Ml) 1,000 mls @ 0 mls/hr IV .Q0M PRN; Protocol; Per Protocol PRN Reason: Hypoglycemia Protocol Aztreonam 1 gm/ Sodium (Chloride) 100 mls @ 100 mls/hr IVPB Q8H [facility] PRN Reason: Protocol Last Admin: 12/24/17 11:46 Dose: 100 mls/hr Sodium Chloride (Sodium Chloride 0.9%) 1,000 mls @ 75 mls/hr IV .[id number] [facility] Last Admin: 12/24/17 04:44 Dose: 75 mls/hr Vancomycin HCl 1,250 mg/ (Sodium Chloride) 250 mls @ 166.6 mls/hr IVPB Q12H [facility] PRN Reason: Protocol Clindamycin Phosphate 600 mg/ (Sodium Chloride) 54 mls @ 100 mls/hr IVPB Q8H [facility] PRN Reason: Protocol Insulin Human Regular (Novolin R) 0 unit SC ACHS [facility] PRN Reason: Protocol Last Admin: 12/24/17 12:13 Dose: 3 units Lisinopril (Zestril) 10 mg PO DAILY [facility] Last Admin: 12/24/17 10:19 Dose: 10 mg Metoprolol Succinate (Toprol Xl) 25 mg PO DAILY [facility] Last Admin: 12/24/17 10:18 Dose: 25 mg Morphine Sulfate (Morphine) 2 mg IVP Q4 PRN PRN Reason: Pain, severe (8-10) Last Admin: 12/24/17 06:23 Dose: 2 mg Morphine Sulfate (Morphine) 1 mg IVP Q4 PRN PRN Reason: Pain, moderate (4-7) Last Admin: 12/23/17 20:08 Dose: 1 mg Nicotine (Nicoderm Cq) 1 patch TD DAILY [facility] Last Admin: 12/24/17 10:25 Dose: 1 patch Rosuvastatin Calcium (Crestor) 40 mg PO HS [facility] Last Admin: 12/23/17 21:55 Dose: 40 mg - Labs Labs: 12/24/17 06:35 12/24/17 06:35 PT 13.6 SECONDS (9.7-12.2) H 12/23/17 15:45 INR 1.2 12/23/17 15:45 APTT 33 SECONDS (21-34) 12/23/17 15:45 - Constitutional Appears: Non-toxic, Unkempt, Older Than Stated Age - Head Exam Head Exam: ATRAUMATIC, NORMAL INSPECTION - Eye Exam Eye Exam: EOMI, PERRL. absent: Nystagmus, Periorbital swelling, Scleral icterus - ENT Exam ENT Exam: Mucous Membranes Moist - Neck Exam Neck Exam: absent: Lymphadenopathy - Respiratory Exam Respiratory Exam: Clear to Ausculation Bilateral. absent: Chest Wall Tenderness , Decreased Breath Sounds, Wheezes - Cardiovascular Exam Cardiovascular Exam: RRR, +S1, +S2. absent: Murmur - GI/Abdominal Exam GI & Abdominal Exam: Tenderness (Left upper). absent: Rigid Assessment and Plan - Assessment and Plan (Free Text) Assessment: 42 year old male with past medical history of hypertension, diabetes, myocardial infarcation 8 years ago with 4 stents placed,admitted for surgical I& D treatment of left lower quadrant abdominal abscess and right buttock abscess. Treatment of uncontrolled DM Plan: Abscess -vancomycin 1g Q12h -aztreonam 1gQ8 hours due to penicillin allergy -Clindamycin -surgery, Dr. Matos, consulted- help appreciated -CT 12/23/17 confirming abscess Uncontrolled Diabetes -Endocrinology consulted: Dr Tang wilcox appreciated -novolin 14units sc acd -novolin 18units sc acb -A1C-14.6 -glucose 224 -heart healthy diet with low carbs -hypoglycemia protocol Chest Pain -Trop neg x3 -EKG neg x3 -d-dimer 315 -doppler neg -CT Chest 12/23/17: no PE Back Pain -no CVA tenderness -no pathology seen on CT or chest xray -start morphine 1mg IV moderate pain, 2mg severe pain CAD -continue home meds aspirin 81mg, plavix 75mg HTN -continue home medication equivalent of ramipril 5mg -continue home medication Toprol XL 25mg daily HLD -continue home medication equivalent, crestor 40mg Asthma -albuterol nebulizer q6prn shortness of breath Prophylactic measure -heparin sc 5000u q8h -PT/ OT
[2017-12-24] MEDS: (Novolin 70/30) NPH/Regular 70/30 Units/ml 10 ml vial SC SCH (17:24)
--- NOTE | 2017-12-24 20:05 | CP.PCM.CON ---
History of Present Illness - History of Present Illness History of Present Illness: dictated Past Patient History - Infectious Disease Hx of Infectious Diseases: None - Past Medical History & Family History Past Medical History?: Yes - Past Social History Smoking Status: Heavy Smoker > 10 Cigarettes Daily - CARDIAC Hx Hypercholesterolemia: Yes Hx Hypertension: Yes - PULMONARY Hx Asthma: Yes - NEUROLOGICAL Hx Neurological Disorder: No - HEENT Hx HEENT Problems: No - RENAL Hx Chronic Kidney Disease: No - ENDOCRINE/METABOLIC Hx Diabetes Mellitus Type 2: Yes - HEMATOLOGICAL/ONCOLOGICAL Hx Blood Disorders: No - INTEGUMENTARY Hx Dermatological Problems: No - MUSCULOSKELETAL/RHEUMATOLOGICAL Hx Musculoskeletal Disorders: No Hx Falls: No - GASTROINTESTINAL Hx Gastrointestinal Disorders: No - GENITOURINARY/GYNECOLOGICAL Hx Genitourinary Disorders: No - PSYCHIATRIC Hx Psychophysiologic Disorder: No Hx Substance Use: No - SURGICAL HISTORY Hx Appendectomy: Yes Hx Coronary Stent: Yes (x4) - ANESTHESIA Hx Anesthesia: Yes Hx Anesthesia Reactions: No Meds Allergies/Adverse Reactions: Allergies Allergy/AdvReac Type Severity Reaction Status Date / Time Penicillins Allergy RASH Verified 12/23/17 14:08 - Medications Medications: Current Medications Acetaminophen (Tylenol 325mg Tab) 650 mg PO Q6 PRN PRN Reason: Fever >100.4 F Last Admin: 12/23/17 21:55 Dose: 650 mg Albuterol Sulfate (Albuterol 0.083% Inhal [place] (2.5 Mg/3 Ml) Ud) 2.5 mg INH RQ6 PRN PRN Reason: Shortness of Breath Aspirin (Ecotrin) 81 mg PO DAILY [facility] Last Admin: 12/24/17 10:18 Dose: 81 mg Clopidogrel Bisulfate (Plavix) 75 mg PO DAILY [facility] Last Admin: 12/24/17 10:19 Dose: 75 mg Dextrose (Dextrose 50% Inj) 0 ml IVP .STAT PRN; Protocol PRN Reason: Hypoglycemia Protocol Dextrose (Glutose 15) 0 gm PO .ONCE PRN; Protocol PRN Reason: Hypoglycemia Protocol Glucagon (Glucagen Diagnostic Kit) 0 mg IM .STAT PRN; Protocol PRN Reason: Hypoglycemia Protocol Heparin Sodium (Porcine) (Heparin) 5,000 units SC Q8 [facility] Last Admin: 12/24/17 14:38 Dose: 5,000 units Dextrose (Dextrose 5% In Water 1000 Ml) 1,000 mls @ 0 mls/hr IV .Q0M PRN; Protocol; Per Protocol PRN Reason: Hypoglycemia Protocol Aztreonam 1 gm/ Sodium (Chloride) 100 mls @ 100 mls/hr IVPB Q8H [facility] PRN Reason: Protocol Last Admin: 12/24/17 18:34 Dose: 100 mls/hr Sodium Chloride (Sodium Chloride 0.9%) 1,000 mls @ 75 mls/hr IV .[id number] [facility] Last Admin: 12/24/17 04:44 Dose: 75 mls/hr Vancomycin HCl 1,250 mg/ (Sodium Chloride) 250 mls @ 166.6 mls/hr IVPB Q12H [facility] PRN Reason: Protocol Last Admin: 12/24/17 19:53 Dose: 166.6 mls/hr Clindamycin Phosphate 600 mg/ (Sodium Chloride) 54 mls @ 100 mls/hr IVPB Q8H [facility] PRN Reason: Protocol Last Admin: 12/24/17 14:38 Dose: 100 mls/hr Insulin Human Isoph/Insulin Regular (Novolin 70/30 (70/30 Units/Ml) 10 Ml) 14 units SC ACD [facility] Last Admin: 12/24/17 17:24 Dose: 14 units Insulin Human Isoph/Insulin Regular (Novolin 70/30 (70/30 Units/Ml) 10 Ml) 18 units SC ACB [facility] Insulin Human Regular (Novolin R) 0 unit SC ACHS [facility] PRN Reason: Protocol Last Admin: 12/24/17 17:02 Dose: Not Given Lisinopril (Zestril) 10 mg PO DAILY [facility] Last Admin: 12/24/17 10:19 Dose: 10 mg Metoprolol Succinate (Toprol Xl) 25 mg PO DAILY [facility] Last Admin: 12/24/17 10:18 Dose: 25 mg Morphine Sulfate (Morphine) 2 mg IVP Q4 PRN PRN Reason: Pain, severe (8-10) Last Admin: 12/24/17 06:23 Dose: 2 mg Morphine Sulfate (Morphine) 1 mg IVP Q4 PRN PRN Reason: Pain, moderate (4-7) Last Admin: 12/24/17 16:15 Dose: 1 mg Nicotine (Nicoderm Cq) 1 patch TD DAILY [facility] Last Admin: 12/24/17 10:25 Dose: 1 patch Rosuvastatin Calcium (Crestor) 40 mg PO [facility] Last Admin: 12/23/17 21:55 Dose: 40 mg Results - Vital Signs Recent Vital Signs: Last Vital Signs Temp 99.1 F 12/24/17 15:00 Pulse 89 12/24/17 16:00 Resp 20 12/24/17 15:00 BP 138/78 12/24/17 15:00 Pulse Ox 97 12/24/17 15:00 - Labs Result Diagrams: 12/24/17 06:35 12/24/17 06:35 Labs: Laboratory Results - last 24 hr 12/23/17 12/23/17 12/23/17 15:45 21:40 21:48 WBC RBC Hgb Hct MCV MCH MCHC RDW Plt Count MPV Neut % (Auto) Lymph % (Auto) [place] % (Auto) Eos % (Auto) Baso % (Auto) Neut # (Auto) Lymph # (Auto) [place] # (Auto) Eos # (Auto) Baso # (Auto) Sodium Potassium Chloride Carbon Dioxide Anion Gap BUN Creatinine Est GFR ( Amer) Est GFR (Non-Af Amer) POC Glucose (mg/dL) 260 H Random Glucose 459 H* Hemoglobin A1c Calcium Phosphorus Magnesium Total Bilirubin AST ALT Alkaline Phosphatase Total Creatine Kinase < 20 L CK-MB (Mass) 0.33 Troponin I < 0.0120 Total Protein Albumin Globulin Albumin/Globulin Ratio Triglycerides Cholesterol LDL Cholesterol Direct HDL Cholesterol Free T4 TSH 3rd Generation HIV 1&2 Antibody Screen 12/24/17 12/24/17 12/24/17 04:18 06:35 06:35 WBC 15.6 H RBC 3.79 L Hgb 11.1 L Hct 32.3 L MCV 85.2 MCH 29.3 MCHC 34.4 RDW 13.1 Plt Count 421 H MPV 7.5 Neut % (Auto) 76.6 H Lymph % (Auto) 11.1 L [place] % (Auto) 10.3 H Eos % (Auto) 1.7 Baso % (Auto) 0.3 Neut # (Auto) 12.0 H Lymph # (Auto) 1.7 [place] # (Auto) 1.6 H Eos # (Auto) 0.3 Baso # (Auto) 0.0 Sodium Potassium Chloride Carbon Dioxide Anion Gap BUN Creatinine Est GFR ( Amer) Est GFR (Non-Af Amer) POC Glucose (mg/dL) Random Glucose Hemoglobin A1c 14.6 H Calcium Phosphorus Magnesium Total Bilirubin AST ALT Alkaline Phosphatase Total Creatine Kinase < 20 L CK-MB (Mass) 0.26 Troponin I < 0.0120 Total Protein Albumin Globulin Albumin/Globulin Ratio Triglycerides Cholesterol LDL Cholesterol Direct HDL Cholesterol Free T4 TSH 3rd Generation HIV 1&2 Antibody Screen 12/24/17 12/24/17 12/24/17 06:35 06:35 06:35 WBC RBC Hgb Hct MCV MCH MCHC RDW Plt Count MPV Neut % (Auto) Lymph % (Auto) [place] % (Auto) Eos % (Auto) Baso % (Auto) Neut # (Auto) Lymph # (Auto) [place] # (Auto) Eos # (Auto) Baso # (Auto) Sodium 137 Potassium 4.0 Chloride 101 Carbon Dioxide 25 Anion Gap 14 BUN 7 L Creatinine 0.6 L Est GFR ( Amer) > 60 Est GFR (Non-Af Amer) > 60 POC Glucose (mg/dL) Random Glucose 222 H Hemoglobin A1c Calcium 9.0 Phosphorus 3.0 Magnesium 1.6 Total Bilirubin 0.3 AST 55 ALT 21 Alkaline Phosphatase 136 H D Total Creatine Kinase CK-MB (Mass) Troponin I Total Protein 6.5 Albumin 3.3 L Globulin 3.3 Albumin/Globulin Ratio 1.0 Triglycerides 147 Cholesterol 105 LDL Cholesterol Direct 42 HDL Cholesterol 24 L Free T4 1.20 TSH 3rd Generation 4.75 H HIV 1&2 Antibody Screen Negative 12/24/17 12/24/17 12/24/17 06:35 11:14 16:52 WBC RBC Hgb Hct MCV MCH MCHC RDW Plt Count MPV Neut % (Auto) Lymph % (Auto) [place] % (Auto) Eos % (Auto) Baso % (Auto) Neut # (Auto) Lymph # (Auto) [place] # (Auto) Eos # (Auto) Baso # (Auto) Sodium Potassium Chloride Carbon Dioxide Anion Gap BUN Creatinine Est GFR ( Amer) Est GFR (Non-Af Amer) POC Glucose (mg/dL) 222 H 200 H 224 H Random Glucose Hemoglobin A1c Calcium Phosphorus Magnesium Total Bilirubin AST ALT Alkaline Phosphatase Total Creatine Kinase CK-MB (Mass) Troponin I Total Protein Albumin Globulin Albumin/Globulin Ratio Triglycerides Cholesterol LDL Cholesterol Direct HDL Cholesterol Free T4 TSH 3rd Generation HIV 1&2 Antibody Screen
--- NOTE | 2017-12-24 20:41 | CARD ---
APPROVED REPORT Date of service: 12/24/2017 EXAM: Two-dimensional and M-mode echocardiogram with Doppler and color Doppler. Other Information Technically limited study due to body habitus. INDICATION Pre-Op Chest Pain HX OF STENTS AND [place] 2D DIMENSIONS IVSd1.2 (0.7-1.1cm)LVDd4.3 (3.9-5.9cm) PWd1.0 (0.7-1.1cm)LVDs2.5 (2.5-4.0cm) FS (%) 42.5 %LVEF (%)73.8 (>50%) M-Mode DIMENSIONS RVDd2.18 (2.1-3.2cm)Left Atrium (MM)2.52 (2.5-4.0cm) Aortic Root3.03 (2.2-3.7cm)Aortic Cusp Exc.1.60 (1.5-2.0cm) Mitral Valve MV E Cmxlsiuj614.5cm/sMV A Zskaobvk22.3cm/sE/A ratio1.6 TDI E/Lateral E'0.0E/Medial E'0.0 Tricuspid Valve TR Peak [id number]/sTR Peak Gr.[id number] LEFT VENTRICLE The left ventricle is normal size. There is normal left ventricular wall thickness. The left ventricular function is normal. The left ventricular ejection fraction is within the normal range. About 65% No regional wall motion abnormalities noted. The left ventricular diastolic function is normal. No left ventricle thrombus noted on this study. There is no ventricular septal defect visualized. There is no left ventricular aneurysm. There is no mass noted in the left ventricle. RIGHT VENTRICLE The right ventricle is normal size. There is normal right ventricular wall thickness. The right ventricular systolic function is normal. ATRIA The left atrium size is normal. The right atrium size is normal. The interatrial septum is intact with no evidence for an atrial septal defect. AORTIC VALVE The aortic valve is normal in structure and function. No aortic regurgitation is present. There is no aortic valvular stenosis. There is no aortic valvular vegetation. MITRAL VALVE The mitral valve is normal in structure and function. There is no evidence of mitral valve prolapse. There is no mitral valve stenosis. There is no mitral valve regurgitation noted. TRICUSPID VALVE The tricuspid valve is normal in structure and function. There is no tricuspid valve regurgitation noted. There is no tricuspid valve prolapse or vegetation. There is no tricuspid valve stenosis. PULMONIC VALVE The pulmonary valve is normal in structure and function. There is no pulmonic valvular regurgitation. There is no pulmonic valvular stenosis. GREAT VESSELS The aortic root is normal in size. The ascending aorta is normal in size. The pulmonary artery is normal. The IVC is upper normal in size PERICARDIAL EFFUSION The pericardium appears normal. There is no pleural effusion. <Conclusion> Normal left ventricular systolic function and wall motion. Normal Doppler.
--- NOTE | 2017-12-24 20:46 | CARD ---
APPROVED REPORT Date of service: 12/23/2017 EKG Measurement Heart [id number] <Conclusion> Normal sinus rhythm Low voltage QRS Borderline ECG
--- NOTE | 2017-12-24 20:50 | CARD ---
APPROVED REPORT Date of service: 12/23/2017 EKG Measurement Heart [id number] <Conclusion> Normal sinus rhythm Normal ECG
--- NOTE | 2017-12-25 03:45 | CON ---
Copied To: Gabby Beckwith MD Attending MD: Gabby Beckwith MD DATE: 12/24/2017 ENDOCRINOLOGY CONSULT HISTORY OF PRESENT ILLNESS: This is a 42-year-old male with known history of type 2 diabetes and hypertension, presenting here with left lower abdominal abscess and currently undergoing IV antibiotic management with recent debridement thereof. He is being referred now for diabetic evaluation because of persistent hyperglycemic accelerations as noted with an A1c level of 14.6%. PAST MEDICAL HISTORY: As mentioned above, history of type 2 diabetes, currently on oral hypoglycemic therapy with metformin given as 1 g b.i.d. 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 FAMILY HISTORY: Positive for diabetes and hypertension. SOCIAL HISTORY: The patient admits to nicotine dependence, using one pack a day for over 20 years. He has a supportive family, otherwise. REVIEW OF SYSTEMS: Admits to occasional bouts of dizziness and lightheadedness with generalized body weakness and suboptimal energy level. No chest pains or palpitations or PND. His oral intake has been variable with nausea, dyspepsia, and vague upper abdominal pains. PHYSICAL EXAMINATION: GENERAL: This is an average built male in no apparent distress. VITAL SIGNS: Blood pressure of 140/80, pulse of 70 beats per minute and regular, temperature 98, respirations 20, height is 5 feet 6 inches, weight is 140 pounds. HEENT: Head is normocephalic. Eyes anicteric with pink conjunctiva. Funduscopy not possible at this time. Ears, nose, and throat are otherwise normal. NECK: Supple. Thyroid gland is normal size. No carotid bruits or any cervical adenopathy. CARDIOPULMONARY: Some adynamic precordium. S1, S2 is rapid and regular. LUNGS: Clear to auscultation. ABDOMEN: Flat and soft with positive bowel sounds. EXTREMITIES: No peripheral edema. Pulses are +2 bilaterally. LABORATORIES: His chemistries showed a BUN of 7, sodium 137, potassium 4, chloride 101, CO2 of 25, glucose 222, and creatinine 0.6. ASSESSMENT: This is a 42-year-old male with uncontrolled and decompensated type 2 insulin requiring diabetes presenting with left lower abdominal abscess and is now being referred for diabetic evaluation and management. He also has diabetic microvascular complications of polyneuropathy with macrovascular complications of coronary artery disease and peripheral arterial disease and vasculopathy. PLAN OF MANAGEMENT: Because of the financial constraints and lack of medical insurance, we will start him on a more affordable conventional insulin preparation such as Novolin 70/30 given as 18 units before breakfast and 12 units before dinner to start today. We will consider addition of basal insulin with NPH at bedtime if fasting hyperglycemic levels supervene. We will modify the coverage scale to obviate hypoglycemia and detailed orders have been given. We will obtain serial chemistries and supplement accordingly as needed. We will follow. Gabby Beckwith MD
[2017-12-25 07:17] LABS: MEAN CELL VOLUME 84.8 fL (80.0-94.0); MEAN CORPUSCULAR HEMOGLOBIN 29.4 pg (27.0-31.0); MEAN CORPUSCULAR HGB CONC 34.7 g/dL (33.0-37.0); MEAN PLATELET VOLUME 7.5 fL (7.2-11.7); RBC 3.73 Mil/uL (4.40-5.90); WHITE BLOOD COUNT 17.7 K/uL (4.8-10.8)
[2017-12-25] MEDS: (Novolin 70/30) NPH/Regular 70/30 Units/ml 10 ml vial SC SCH ×2 (07:26→17:53)
[2017-12-25] MEDS: (Novolin R) Insulin Human Regular 100 units/ml vial SC SCH ×4 (07:26→21:12)
[2017-12-25 07:28] LABS: INR 1.4; PROTHROMBIN TIME 15.1 SECONDS (9.7-12.2)
[2017-12-25] MEDS: Sodium Chloride 0.9% 1,000 ML IV SCH ×2 (07:30→21:12)
[2017-12-25 07:52] LABS: ALB/GLOB RATIO 0.9 (1.0-2.1); ALBUMIN 2.9 g/dL (3.5-5.0); ALT/SGPT 15 U/L (21-72); AST/SGOT 10 U/L (17-59); BLOOD UREA NITROGEN 8 mg/dL (9-20); CALCIUM 8.7 mg/dl (8.6-10.4); GFR AFRICAN-AMERICAN > 60; GFR NON-AFRICAN AMERICAN > 60
--- NOTE | 2017-12-25 08:14 | CP.PCM.PN ---
Subjective - Date & Time of Evaluation Date of Evaluation: 12/25/17 Time of Evaluation: 08:14 - Subjective Subjective: Hospitalist Progress Note for Dr. Schumacher Patient examined at bedside. Objective - Vital Signs/Intake and Output Vital Signs (last 24 hours): Temp Pulse Resp BP Pulse Ox 99.1 F 88 20 147/86 97 12/25/17 07:15 12/25/17 07:15 12/25/17 07:15 12/25/17 07:15 12/25/17 07:15 Intake and Output: 12/25/17 12/25/17 06:59 18:59 Intake Total 1620 Balance 1620 - Medications Medications: Current Medications Acetaminophen (Tylenol 325mg Tab) 650 mg PO Q6 PRN PRN Reason: Fever >100.4 F Last Admin: 12/24/17 21:32 Dose: 650 mg Albuterol Sulfate (Albuterol 0.083% Inhal [place] (2.5 Mg/3 Ml) Ud) 2.5 mg INH RQ6 PRN PRN Reason: Shortness of Breath Aspirin (Ecotrin) 81 mg PO DAILY [facility] Last Admin: 12/24/17 10:18 Dose: 81 mg Clopidogrel Bisulfate (Plavix) 75 mg PO DAILY [facility] Last Admin: 12/24/17 10:19 Dose: 75 mg Dextrose (Dextrose 50% Inj) 0 ml IVP .STAT PRN; Protocol PRN Reason: Hypoglycemia Protocol Dextrose (Glutose 15) 0 gm PO .ONCE PRN; Protocol PRN Reason: Hypoglycemia Protocol Glucagon (Glucagen Diagnostic Kit) 0 mg IM .STAT PRN; Protocol PRN Reason: Hypoglycemia Protocol Heparin Sodium (Porcine) (Heparin) 5,000 units SC Q8 [facility] Last Admin: 12/24/17 21:34 Dose: 5,000 units Dextrose (Dextrose 5% In Water 1000 Ml) 1,000 mls @ 0 mls/hr IV .Q0M PRN; Protocol; Per Protocol PRN Reason: Hypoglycemia Protocol Sodium Chloride (Sodium Chloride 0.9%) 1,000 mls @ 75 mls/hr IV .[id number] [facility] Last Admin: 12/24/17 17:50 Dose: Not Given Vancomycin HCl 1,250 mg/ (Sodium Chloride) 250 mls @ 166.6 mls/hr IVPB Q12H [facility] PRN Reason: Protocol Last Admin: 12/25/17 06:32 Dose: 166.6 mls/hr Clindamycin Phosphate 600 mg/ (Sodium Chloride) 54 mls @ 100 mls/hr IVPB Q8H [facility] PRN Reason: Protocol Last Admin: 12/25/17 05:17 Dose: 100 mls/hr Insulin Human Isoph/Insulin Regular (Novolin 70/30 (70/30 Units/Ml) 10 Ml) 14 units SC ACD [facility] Last Admin: 12/24/17 17:24 Dose: 14 units Insulin Human Isoph/Insulin Regular (Novolin 70/30 (70/30 Units/Ml) 10 Ml) 18 units SC ACB [facility] Last Admin: 12/25/17 07:26 Dose: Not Given Insulin Human Regular (Novolin R) 0 unit SC ACHS [facility] PRN Reason: Protocol Last Admin: 12/24/17 21:02 Dose: Not Given Lactobacillus Acidophilus (Bacid Acidophilus) 1 cap PO BID [facility] Lisinopril (Zestril) 10 mg PO DAILY [facility] Last Admin: 12/24/17 10:19 Dose: 10 mg Metoprolol Succinate (Toprol Xl) 25 mg PO DAILY [facility] Last Admin: 12/24/17 10:18 Dose: 25 mg Morphine Sulfate (Morphine) 2 mg IVP Q4 PRN PRN Reason: Pain, severe (8-10) Last Admin: 12/25/17 04:26 Dose: 2 mg Morphine Sulfate (Morphine) 1 mg IVP Q4 PRN PRN Reason: Pain, moderate (4-7) Last Admin: 12/24/17 16:15 Dose: 1 mg Nicotine (Nicoderm Cq) 1 patch TD DAILY [facility] Last Admin: 12/24/17 10:25 Dose: 1 patch Rosuvastatin Calcium (Crestor) 40 mg PO HS [facility] Last Admin: 12/24/17 21:31 Dose: 40 mg - Labs Labs: 12/25/17 07:08 12/25/17 07:08 PT 15.1 SECONDS (9.7-12.2) H 12/25/17 07:08 INR 1.4 12/25/17 07:08 APTT 31 SECONDS (21-34) 12/25/17 07:08
[2017-12-25] MEDS: Metoprolol Succinate 25 mg XL Tab PO SCH ×2 (08:40→09:28)
--- NOTE | 2017-12-25 09:15 | CP.PCM.PN ---
Subjective - Date & Time of Evaluation Date of Evaluation: 12/25/17 Time of Evaluation: 07:30 - Subjective Subjective: Medical Attending Note: Patient seen and examined this morning. Patient reports he was able to sleep overnight. Patient denies headache, denies chills, denies chest pain, denies nausea, denies vomiting, reports pain over the abdominal abscess site over the LLQ and over his back side as well. Patient remembers our conversation from yesterday: he reports understanding he will need to stop smoking, readvise his diet in light of his grossly uncontrolled diabetes, and overall take better care of himself. patient reports last bowel movement was the day prior to admission. Objective - Vital Signs/Intake and Output Vital Signs (last 24 hours): Temp Pulse Resp BP Pulse Ox 99.1 F 88 20 147/86 97 12/25/17 07:15 12/25/17 07:15 12/25/17 07:15 12/25/17 07:15 12/25/17 07:15 Intake and Output: 12/25/17 12/25/17 06:59 18:59 Intake Total 1620 Balance 1620 - Medications Medications: Current Medications Acetaminophen (Tylenol 325mg Tab) 650 mg PO Q6 PRN PRN Reason: Fever >100.4 F Last Admin: 12/24/17 21:32 Dose: 650 mg Albuterol Sulfate (Albuterol 0.083% Inhal [place] (2.5 Mg/3 Ml) Ud) 2.5 mg INH RQ6 PRN PRN Reason: Shortness of Breath Aspirin (Ecotrin) 81 mg PO DAILY [facility] Last Admin: 12/24/17 10:18 Dose: 81 mg Clopidogrel Bisulfate (Plavix) 75 mg PO DAILY [facility] Last Admin: 12/24/17 10:19 Dose: 75 mg Dextrose (Dextrose 50% Inj) 0 ml IVP .STAT PRN; Protocol PRN Reason: Hypoglycemia Protocol Dextrose (Glutose 15) 0 gm PO .ONCE PRN; Protocol PRN Reason: Hypoglycemia Protocol Glucagon (Glucagen Diagnostic Kit) 0 mg IM .STAT PRN; Protocol PRN Reason: Hypoglycemia Protocol Heparin Sodium (Porcine) (Heparin) 5,000 units SC Q8 [facility] Last Admin: 12/24/17 21:34 Dose: 5,000 units Dextrose (Dextrose 5% In Water 1000 Ml) 1,000 mls @ 0 mls/hr IV .Q0M PRN; Protocol; Per Protocol PRN Reason: Hypoglycemia Protocol Sodium Chloride (Sodium Chloride 0.9%) 1,000 mls @ 75 mls/hr IV .[id number] [facility] Last Admin: 12/24/17 17:50 Dose: Not Given Vancomycin HCl 1,250 mg/ (Sodium Chloride) 250 mls @ 166.6 mls/hr IVPB Q12H [facility] PRN Reason: Protocol Last Admin: 12/25/17 06:32 Dose: 166.6 mls/hr Clindamycin Phosphate 600 mg/ (Sodium Chloride) 54 mls @ 100 mls/hr IVPB Q8H [facility] PRN Reason: Protocol Last Admin: 12/25/17 05:17 Dose: 100 mls/hr Insulin Human Isoph/Insulin Regular (Novolin 70/30 (70/30 Units/Ml) 10 Ml) 14 units SC ACD [facility] Last Admin: 12/24/17 17:24 Dose: 14 units Insulin Human Isoph/Insulin Regular (Novolin 70/30 (70/30 Units/Ml) 10 Ml) 18 units SC ACB [facility] Last Admin: 12/25/17 07:26 Dose: Not Given Insulin Human Regular (Novolin R) 0 unit SC ACHS [facility] PRN Reason: Protocol Last Admin: 12/25/17 07:26 Dose: Not Given Lactobacillus Acidophilus (Bacid Acidophilus) 1 cap PO BID [facility] Lisinopril (Zestril) 10 mg PO DAILY [facility] Last Admin: 12/25/17 08:40 Dose: 10 mg Metoprolol Succinate (Toprol Xl) 25 mg PO DAILY [facility] Last Admin: 12/25/17 08:40 Dose: 25 mg Morphine Sulfate (Morphine) 2 mg IVP Q4 PRN PRN Reason: Pain, severe (8-10) Last Admin: 12/25/17 04:26 Dose: 2 mg Morphine Sulfate (Morphine) 1 mg IVP Q4 PRN PRN Reason: Pain, moderate (4-7) Last Admin: 12/24/17 16:15 Dose: 1 mg Nicotine (Nicoderm Cq) 1 patch TD DAILY [facility] Last Admin: 12/24/17 10:25 Dose: 1 patch Rosuvastatin Calcium (Crestor) 40 mg PO HS [facility] Last Admin: 12/24/17 21:31 Dose: 40 mg - Labs Labs: 12/25/17 07:08 12/25/17 07:08 PT 15.1 SECONDS (9.7-12.2) H 12/25/17 07:08 INR 1.4 12/25/17 07:08 APTT 31 SECONDS (21-34) 12/25/17 07:08 - Constitutional Appears: Non-toxic, No Acute Distress - Head Exam Head Exam: NORMAL INSPECTION - Eye Exam Eye Exam: EOMI - ENT Exam ENT Exam: Mucous Membranes Moist - Respiratory Exam Respiratory Exam: Clear to Ausculation Bilateral, NORMAL BREATHING PATTERN. absent: Rales, Rhonchi, Wheezes - Cardiovascular Exam Cardiovascular Exam: REGULAR RHYTHM, +S1, +S2 - GI/Abdominal Exam GI & Abdominal Exam: Soft, Normal Bowel Sounds. absent: Distended, Firm, Guarding, Rigid, Rebound Additional comments: LLQ; Dressing: clean/dry/intact: there is pain ilicted when I press around the abscess site negative suprapubic tenderness Patient does have prior scarring from prior abscess in the past - Back Exam Back Exam: absent: CVA tenderness (L), CVA tenderness (R) Additional comments: pelvic: patient has 2 dressings over the illiac crest and spine: fluctuance noted; erythema noted as well; - Neurological Exam Neurological Exam: Alert, Awake, Oriented x3 - Skin Skin Exam: Dry, Warm Assessment and Plan (1) Abscess of abdominal wall Status: Acute (2) Acute chest pain Status: Acute (3) Uncontrolled diabetes mellitus Status: Acute (4) Abscess of buttock Status: Acute (5) Neuropathy Status: Acute (6) Noncompliance with medication regimen Status: Acute (7) Prophylactic measure Status: Acute Attending/Attestation - Attestation I have personally seen and examined this patient.: Yes I have fully participated in the care of the patient.: Yes I have reviewed all pertinent clinical information, including history, physical exam and plan: Yes Notes (Text): 1. Chest Pain-->resolved Assessment/Plan * Cardiology (Dr. Garcia) on board-->help appreciated * Risk factors: prior AR/Stents X4, diabetes, smoker, lipid disorder, hypertension, male, family hx of mi * Cardiac enzymes negative 3 * Echocardiogram (12/24/17): normal left ventricular systolic function and wall motion. Normal doppler. * Patient is cardiac cleared for I&D; As per [place]/AHA guidelines, patient is undergoing a low risk procedure from a cardiac standpoint; however, patient does have intermediate risk due to significant cardiac related history (AR 8 years ago; stents x4). * We will need to f/u with surgery if planned for surgery intervention * If so, then will need to f/u surgery in regards to restart to patient's plavix. Note; stents placed 12 years ago. * CT Chest 12/23/17: 11mm ground glass density infiltrates in left upper lobe. minimal bibasilar pleural thickening. no pulmonary embolus (see full report) * Aspirin 81mg PO daily * Plavix on hold if surgery pursues intervention; patient has stents from 12 years ago * Toprol XL 25mg Po daily * Lisinopril 10mg PO daily * Crestor 20mg POqHS 2) Uncontrolled Diabetes Assessment/Plan * On admission: * home medications metformin 1000mg PO BID due to IV contrast administration with CT * home medication glipizide 10mg PO BID pending A1c value * Endocrinology (Dr. Beckwith) on board--> help appreciated * a1c: 14.6 * Novolin 70/30 18 units AB ACB (start 12/25/17) * Novolin 70/30 14 sub QACD (active 12/24/17) * Novolin R sliding scale subq (low) * hypoglycemia protocol * Lisinopril 10mg PO daily * Crestor 40mg POqHS * photo mask inspector referral placed * Rural [employer] referral place 3) Multiple Abscesses Assessment/plan * Risk factors: uncontrolled diabetes, and smoker * Surgery (Dr. Matos) on board-->help appreciated * possible bedside drainage if areas do not continue to drain properly * wound care consulted, recs for possible options for gwen-rectal and LLQ wound appreciated * Infectious (Dr. Mckeon) on board-->help appreciated * CT 12/23/17: cutaneous and subcutaneous collection interposed between the posterior skin surface in the perineum this is midline with caudal length 5.3cm and orthogonal measurements 3.7x3.5cm. no evidence of communication with rectum. cutaneous and subcutaneous phlegmonous process at the level of the iliac crest. findings extend from the skin to the rectus muscle. there is no intra-abdominal intraperitoneal extension. this finding extends from the skin surface to a depth of 2.7cm (see full report) * Clindamycin 600mg [id number] (active since 12/24/17) * Vancomcyin 1250mg IVPB Q12H (active since 12/24/17) * Will need vancomycin trough 12/26/17 6:30 AM * Bacid 1 tab PO BID 4) History of Known CAD Assessment/plan * Echocardiogram (12/24/17): normal left ventricular systolic function and wall motion. Normal doppler. * Aspirin 81mg PO daily * Plavix on hold if surgery pursues intervention; patient has stents from 12 years ago * Toprol XL 25mg Po daily * Lisinopril 10mg PO daily * Crestor 20mg POqHS 5) History of HTN Assessment/plan * Toprol XL 25mg Po daily * Lisinopril 10mg PO daily 6) History of Lipid Disorder Assessment/plan * Crestor 40mg POqHS 7) History of Asthma Assessment/plan * albuterol nebulizer q6prn shortness of breath * Patient is not in acute exacerbation 8) Tobacco use Assessment/plan * patient urged to quit smoking * patient counseled on detrimental effects of smoking on his health * nicotine patch 21mg/24h daily 9) Leukocytosis Assessment/Plan * Infectious Disease (Dr. Mckeon) on case-->help appreciated * We will f/u to see if switch to Cipro or Avelox; patient is PCN allergic and Clinda is resistant * Blood culture (12/23/17): no growth after 24hours X2 * Abscess abdominal Staph Aureus * Resistant to Clindamycin * Sensitive to Vancomycin * Patient is Pen allergic 10) Prophylactic measure * Will resume heparin sc 5000u q8h * Bacid 1 tab PO daily * PT/ OT * Wound care referral * Rural Electrification Engineer referral * PT/OT eval Disposition: will need to f/u with ID given leukocytosis; patient is started on insulin regimen for today we will see how sugars react with new regiment since patient is new to insulin
[2017-12-25] MEDS ORDERED: Lidocaine Hydrochloride 10 ML INJ ONE (09:30)
[2017-12-25] MEDS: Lactobacillus Acidophilus 500 MU Cap PO SCH ×2 (09:57→17:52)
[2017-12-25] MEDS ORDERED: Propofol 10 mg/ml Inj (20 ML) ONE (10:04)
[2017-12-25] MEDS ORDERED: Midazolam 2 MG/2 ML VIAL ONE (10:04)
[2017-12-25] MEDS: Bupivacaine 0.25% 20 ML INJ IJ ONE ×2 (10:11→11:37)
[2017-12-25] MEDS ORDERED: Vancomycin 1 gm/D5W 200 ml 1 GM/200 ML BAG IVPB ONE (10:29)
[2017-12-25] MEDS ORDERED: Phenylephrine 10 mg/ml Inj ONE (10:49)
[2017-12-25] MEDS ORDERED: Succinylcholine Chloride 20 mg/ml Syr (5 ml) IV ONE (10:49)
[2017-12-25] MEDS ORDERED: Rocuronium 10 mg/ml (5 ml) ONE (10:49)
[2017-12-25] MEDS ORDERED: Lidocaine/Epinephrine 1% 1:100000 10 ML IJ ONE (11:24)
[2017-12-25] MEDS ORDERED: HYDROmorphone 0.5 mg/0.5 ml ISec IVP PRN (11:48)
--- NOTE | 2017-12-25 11:51 | PCM.SURG1 ---
Surgeon's Initial Post Op Note - Surgeon's Notes Surgeon: Dr. Matos Lacquer Coater: Dr. Vu PGY-4 Type of Anesthesia: General Endo, Local Pre-Operative Diagnosis: Abdominal phlegmonous mass. Gwen-rectal abscess Operative Findings: Abdominal wall phlegmonous mass. Gwen-rectal abscess Post-Operative Diagnosis: Abdominal wall phlegmonous mass. Gwen-rectal abscess Operation Performed: 1) Debridement of abdominal wall wound. 2) Incision and drainage of gwen-rectal abscess Specimen/Specimens Removed: necrotic abdominal mass Estimated Blood Loss: EBL {In ML}: 50 Blood Products Given: N/A Drains Used: No Drains Post-Op Condition: Fair Date of Surgery/Procedure: 12/25/17 Time of Surgery/Procedure: 11:50
--- NOTE | 2017-12-25 13:49 | CP.PCM.PN ---
Subjective - Date & Time of Evaluation Date of Evaluation: 12/25/17 Time of Evaluation: 01:45 - Subjective Subjective: dictated Objective - Vital Signs/Intake and Output Vital Signs (last 24 hours): Temp Pulse Resp BP Pulse Ox 97.5 F L 87 6 L 116/62 99 12/25/17 13:15 12/25/17 13:15 12/25/17 13:15 12/25/17 13:15 12/25/17 13:15 Intake and Output: 12/25/17 12/25/17 06:59 18:59 Intake Total 1620 850 Balance 1620 850 - Medications Medications: Current Medications Acetaminophen (Tylenol 325mg Tab) 650 mg PO Q6 PRN PRN Reason: Fever >100.4 F Last Admin: 12/24/17 21:32 Dose: 650 mg Albuterol Sulfate (Albuterol 0.083% Inhal [place] (2.5 Mg/3 Ml) Ud) 2.5 mg INH RQ6 PRN PRN Reason: Shortness of Breath Aspirin (Ecotrin) 81 mg PO DAILY [facility] Last Admin: 12/25/17 09:27 Dose: Not Given Clopidogrel Bisulfate (Plavix) 75 mg PO DAILY [facility] Last Admin: 12/24/17 10:19 Dose: 75 mg Dextrose (Dextrose 50% Inj) 0 ml IVP .STAT PRN; Protocol PRN Reason: Hypoglycemia Protocol Dextrose (Glutose 15) 0 gm PO .ONCE PRN; Protocol PRN Reason: Hypoglycemia Protocol Glucagon (Glucagen Diagnostic Kit) 0 mg IM .STAT PRN; Protocol PRN Reason: Hypoglycemia Protocol Heparin Sodium (Porcine) (Heparin) 5,000 units SC Q8 [facility] Last Admin: 12/24/17 21:34 Dose: 5,000 units Hydromorphone HCl (Dilaudid) 0.5 mg IVP Q10M PRN PRN Reason: Pain, moderate (4-7) Stop: 12/25/17 13:49 Dextrose (Dextrose 5% In Water 1000 Ml) 1,000 mls @ 0 mls/hr IV .Q0M PRN; Protocol; Per Protocol PRN Reason: Hypoglycemia Protocol Sodium Chloride (Sodium Chloride 0.9%) 1,000 mls @ 75 mls/hr IV .[id number] [facility] Last Admin: 12/25/17 07:30 Dose: Not Given Vancomycin HCl 1,250 mg/ (Sodium Chloride) 250 mls @ 166.6 mls/hr IVPB Q12H [facility] PRN Reason: Protocol Last Admin: 12/25/17 06:32 Dose: 166.6 mls/hr Clindamycin Phosphate 600 mg/ (Sodium Chloride) 54 mls @ 100 mls/hr IVPB Q8H [facility] PRN Reason: Protocol Last Admin: 12/25/17 13:38 Dose: 100 mls/hr Insulin Human Isoph/Insulin Regular (Novolin 70/30 (70/30 Units/Ml) 10 Ml) 14 units SC ACD [facility] Last Admin: 12/24/17 17:24 Dose: 14 units Insulin Human Isoph/Insulin Regular (Novolin 70/30 (70/30 Units/Ml) 10 Ml) 18 units SC ACB [facility] Last Admin: 12/25/17 07:26 Dose: Not Given Insulin Human NPH (Novolin N) 8 unit SC HS [facility] Insulin Human Regular (Novolin R) 0 unit SC ACHS [facility] PRN Reason: Protocol Last Admin: 12/25/17 12:07 Dose: Not Given Lactobacillus Acidophilus (Bacid Acidophilus) 1 cap PO BID [facility] Last Admin: 12/25/17 09:57 Dose: Not Given Lisinopril (Zestril) 10 mg PO DAILY [facility] Last Admin: 12/25/17 09:28 Dose: Not Given Metoprolol Succinate (Toprol Xl) 25 mg PO DAILY [facility] Last Admin: 12/25/17 09:28 Dose: Not Given Morphine Sulfate (Morphine) 2 mg IVP Q4 PRN PRN Reason: Pain, severe (8-10) Last Admin: 12/25/17 04:26 Dose: 2 mg Morphine Sulfate (Morphine) 1 mg IVP Q4 PRN PRN Reason: Pain, moderate (4-7) Last Admin: 12/24/17 16:15 Dose: 1 mg Nicotine (Nicoderm Cq) 1 patch TD DAILY [facility] Last Admin: 12/25/17 13:38 Dose: 1 patch Ondansetron HCl (Zofran Inj) 4 mg IVP ONCE PRN PRN Reason: Nausea/Vomiting Stop: 12/25/17 13:49 Last Admin: 12/25/17 12:00 Dose: 4 mg Ondansetron HCl (Zofran Inj) 4 mg IVP Q4 PRN PRN Reason: Nausea/Vomiting Rosuvastatin Calcium (Crestor) 40 mg PO HS [facility] Last Admin: 12/24/17 21:31 Dose: 40 mg - Labs Labs: 12/25/17 07:08 12/25/17 07:08 PT 15.1 SECONDS (9.7-12.2) H 12/25/17 07:08 INR 1.4 12/25/17 07:08 APTT 31 SECONDS (21-34) 12/25/17 07:08
--- NOTE | 2017-12-25 14:53 | CARD ---
APPROVED REPORT Date of service: 12/24/2017 EKG Measurement Heart [id number] <Conclusion> Normal sinus rhythm Normal ECG
[2017-12-25] MEDS: Ciprofloxacin 400mg/200ml D5W 400 MG/200 ML BAG IVPB SCH (14:54)
--- NOTE | 2017-12-25 15:25 | PN ---
Copied To: Gabby Beckwith MD Attending MD: Gabby Beckwith MD ENDO FOLLOWUP NOTE LOCATION: Room 651 DATE: 12/25/2017 SUBJECTIVE: This is a 42-year-old male with recent uncontrolled type 2 insulin-requiring diabetes, now being followed closely for metabolic management. His glycemic levels are fluctuating but improved at this time and the glucose levels overnight have ranged from 189 to 227 mg/dL. His latest chemistry showed a BUN of 8, sodium 139, potassium 3.9, chloride 103, CO2 of 22, glucose 231, and creatinine 0.5. So at this time, we will modify once again his current insulin regimen and add Novolin NPH given as bedtime insulin at 8 units subcu at bedtime daily to start tonight. We will titrate incrementally as indicated to optimize metabolic control. We will also titrate his premixed insulin regimen after he undergoes several procedures as noted thereof. We will continue in the meantime his Novolin 70/30 given as 18 units a.c. breakfast and 14 units a.c. dinner as given. We will obtain serial chemistries and supplement accordingly as needed. We will follow. Gabby Beckwith MD
--- NOTE | 2017-12-25 18:24 | PN ---
Copied To: Alicia Mckeon MD Attending MD: Alicia Mckeon MD DATE: 12/25/2017 SUBJECTIVE: The patient just returned from the OR after getting I and D done on the left abdominal and right buttock abscess, and the patient is arousable. He does not complain of any pain. He did have some nausea and was given Zofran and according to the OR nurse, T-max is 97.5, pulse 87, blood pressure 116/62, respirations are 10. PHYSICAL EXAMINATION: HEENT: Head is atraumatic and normocephalic. NECK: Supple. LUNGS: Clear. HEART: S1 and S2 regular. ABDOMEN: Soft. SKIN: He has dressings on both sides; one on the right buttock and one on the left lower abdomen. EXTREMITIES: Have no edema. White count is 17.7 today, hemoglobin 11, hematocrit 31.6, platelet count is 447. Sugar is 242. They did a creatinine which was 0.5. The wound culture came out to be oxacillin-sensitive, and it is sensitive to levofloxacin, moxifloxacin, and Cipro, so this hospital only has Cipro at this time, so we will add Cipro. Staph aureus is resistant to clindamycin, so at this time, I am going to change the antibiotic from clindamycin to Cipro and leave the vancomycin on, and once he improves clinically, I think we will look into the medications, so he is on Cipro. He is on clindamycin which was discontinued at this time. We are going to stop the clindamycin and add Cipro, and we will follow. He did get a dose of vancomycin in the OR. At this time, the patient will be on Cipro and vancomycin. He does have methicillin-sensitive Staph aureus abscess. He is diabetic, and he is being treated for his therapeutics. This is a therapeutic therapy and once he is cleared from surgery, then I think he can go on oral antibiotics. We will follow. Alicia Mckeon MD [facility] DIVISIONHermelindo
[2017-12-25] MEDS: (Novolin N) Insulin Human Isophane (NPH) 100 u/ml 10 ml vial SC SCH (21:21)
[2017-12-26] MEDS: Ciprofloxacin 400mg/200ml D5W 400 MG/200 ML BAG IVPB SCH ×2 (01:32→13:36)
[2017-12-26] MEDS: Sodium Chloride 0.9% 1,000 ML IV SCH ×2 (06:19→10:32)
[2017-12-26] MEDS: (Novolin 70/30) NPH/Regular 70/30 Units/ml 10 ml vial SC SCH ×2 (08:07→16:13)
[2017-12-26] MEDS: (Novolin R) Insulin Human Regular 100 units/ml vial SC SCH ×4 (08:08→21:22)
--- NOTE | 2017-12-26 08:37 | CP.PCM.PN ---
Subjective - Date & Time of Evaluation Date of Evaluation: 12/26/17 Time of Evaluation: 08:37 Objective - Vital Signs/Intake and Output Vital Signs (last 24 hours): Temp Pulse Resp BP Pulse Ox 98.5 F 78 20 121/71 96 12/26/17 04:00 12/26/17 04:00 12/26/17 04:00 12/26/17 04:00 12/26/17 04:00 Intake and Output: 12/26/17 12/26/17 06:59 18:59 Intake Total 375 Balance 375 - Medications Medications: Current Medications Acetaminophen (Tylenol 325mg Tab) 650 mg PO Q6 PRN PRN Reason: Fever >100.4 F Last Admin: 12/26/17 08:09 Dose: 650 mg Albuterol Sulfate (Albuterol 0.083% Inhal [place] (2.5 Mg/3 Ml) Ud) 2.5 mg INH RQ6 PRN PRN Reason: Shortness of Breath Aspirin (Ecotrin) 81 mg PO DAILY [facility] Last Admin: 12/25/17 09:27 Dose: Not Given Clopidogrel Bisulfate (Plavix) 75 mg PO DAILY [facility] Last Admin: 12/24/17 10:19 Dose: 75 mg Dextrose (Dextrose 50% Inj) 0 ml IVP .STAT PRN; Protocol PRN Reason: Hypoglycemia Protocol Dextrose (Glutose 15) 0 gm PO .ONCE PRN; Protocol PRN Reason: Hypoglycemia Protocol Glucagon (Glucagen Diagnostic Kit) 0 mg IM .STAT PRN; Protocol PRN Reason: Hypoglycemia Protocol Heparin Sodium (Porcine) (Heparin) 5,000 units SC Q8 [facility] Last Admin: 12/24/17 21:34 Dose: 5,000 units Dextrose (Dextrose 5% In Water 1000 Ml) 1,000 mls @ 0 mls/hr IV .Q0M PRN; Protocol; Per Protocol PRN Reason: Hypoglycemia Protocol Sodium Chloride (Sodium Chloride 0.9%) 1,000 mls @ 75 mls/hr IV .[id number] [facility] Last Admin: 12/26/17 06:19 Dose: 75 mls/hr Vancomycin HCl 1,250 mg/ (Sodium Chloride) 250 mls @ 166.6 mls/hr IVPB Q12H [facility] PRN Reason: Protocol Last Admin: 12/26/17 06:17 Dose: 166.6 mls/hr Ciprofloxacin (Cipro 400mg/200ml Dsw) 400 mg in 200 mls @ 133 mls/hr IVPB Q12H [facility] PRN Reason: Protocol Last Admin: 12/26/17 01:32 Dose: 133 mls/hr Insulin Human Isoph/Insulin Regular (Novolin 70/30 (70/30 Units/Ml) 10 Ml) 14 units SC ACD [facility] Last Admin: 12/25/17 17:53 Dose: 14 units Insulin Human Isoph/Insulin Regular (Novolin 70/30 (70/30 Units/Ml) 10 Ml) 18 units SC ACB [facility] Last Admin: 12/26/17 08:07 Dose: 18 units Insulin Human NPH (Novolin N) 8 unit SC HS [facility] Last Admin: 12/25/17 21:21 Dose: 8 units Insulin Human Regular (Novolin R) 0 unit SC ACHS [facility] PRN Reason: Protocol Last Admin: 12/26/17 08:08 Dose: 3 unit Lactobacillus Acidophilus (Bacid Acidophilus) 1 cap PO BID [facility] Last Admin: 12/25/17 17:52 Dose: 1 cap Lisinopril (Zestril) 10 mg PO DAILY [facility] Last Admin: 12/25/17 09:28 Dose: Not Given Metoprolol Succinate (Toprol Xl) 25 mg PO DAILY [facility] Last Admin: 12/25/17 09:28 Dose: Not Given Morphine Sulfate (Morphine) 2 mg IVP Q4 PRN PRN Reason: Pain, severe (8-10) Last Admin: 12/25/17 04:26 Dose: 2 mg Morphine Sulfate (Morphine) 1 mg IVP Q4 PRN PRN Reason: Pain, moderate (4-7) Last Admin: 12/24/17 16:15 Dose: 1 mg Nicotine (Nicoderm Cq) 1 patch TD DAILY [facility] Last Admin: 12/25/17 13:38 Dose: 1 patch Ondansetron HCl (Zofran Inj) 4 mg IVP Q4 PRN PRN Reason: Nausea/Vomiting Rosuvastatin Calcium (Crestor) 40 mg PO [facility] Last Admin: 12/25/17 21:21 Dose: 40 mg - Labs Labs: 12/25/17 07:08 12/25/17 07:08 PT 15.1 SECONDS (9.7-12.2) H 12/25/17 07:08 INR 1.4 12/25/17 07:08 APTT 31 SECONDS (21-34) 12/25/17 07:08
[2017-12-26 09:01] LABS: BASO # 0.1 K/uL (0.0-0.2); BASO % 0.7 % (0.0-2.0); EOS # 0.3 K/uL (0.0-0.7); EOS % 1.6 % (0.0-4.0); HEMOGLOBIN 10.3 g/dL (12.0-18.0); LYMPH # 1.8 K/uL (1.0-4.3); MEAN CELL VOLUME 84.7 fL (80.0-94.0); MEAN CORPUSCULAR HEMOGLOBIN 29.1 pg (27.0-31.0); MEAN CORPUSCULAR HGB CONC 34.3 g/dL (33.0-37.0); MEAN PLATELET VOLUME 7.3 fL (7.2-11.7); MONO # 2.2 K/uL (0.0-0.8); MONO % 12.3 % (0.0-10.0); NEUT # 13.7 K/uL (1.8-7.0); NEUT % 75.4 % (50.0-75.0); RBC 3.53 Mil/uL (4.40-5.90); RED CELL DISTRIBUTION WIDTH 13.1 % (11.5-14.5); WHITE BLOOD COUNT 18.2 K/uL (4.8-10.8)
[2017-12-26 09:08] LABS: ALB/GLOB RATIO 0.9 (1.0-2.1); ALBUMIN 2.8 g/dL (3.5-5.0); ALT/SGPT 24 U/L (21-72); AST/SGOT 10 U/L (17-59); BLOOD UREA NITROGEN 12 mg/dL (9-20); CALCIUM 8.6 mg/dl (8.6-10.4); GFR AFRICAN-AMERICAN > 60; GFR NON-AFRICAN AMERICAN > 60
[2017-12-26] MEDS: Lactobacillus Acidophilus 500 MU Cap PO SCH ×2 (09:30→17:10)
[2017-12-26] MEDS: Metoprolol Succinate 25 mg XL Tab PO SCH (09:30)
[2017-12-26] MEDS: Magnesium Sulfate 1 gm in D5W 1 GM/100 ML BAG IVPB SCH ×2 (10:34→11:49)
--- NOTE | 2017-12-26 11:01 | CP.PCM.PN ---
Subjective - Date & Time of Evaluation Date of Evaluation: 12/26/17 Time of Evaluation: 07:00 - Subjective Subjective: GENERAL SURGERY PROGRESS NOTE FOR DR. MARIN Patient seen and examined at bedside. He states that his pain is improved. He is tolerating his diet and denies nausea or vomiting. He is having bowel movements. Objective - Vital Signs/Intake and Output Vital Signs (last 24 hours): Temp Pulse Resp BP Pulse Ox 98.5 F 82 20 130/77 97 12/26/17 07:20 12/26/17 07:20 12/26/17 07:20 12/26/17 07:20 12/26/17 07:20 Intake and Output: 12/26/17 12/26/17 06:59 18:59 Intake Total 375 Balance 375 - Medications Medications: Current Medications Acetaminophen (Tylenol 325mg Tab) 650 mg PO Q6 PRN PRN Reason: Fever >100.4 F Last Admin: 12/26/17 08:09 Dose: 650 mg Albuterol Sulfate (Albuterol 0.083% Inhal [place] (2.5 Mg/3 Ml) Ud) 2.5 mg INH RQ6 PRN PRN Reason: Shortness of Breath Aspirin (Ecotrin) 81 mg PO DAILY [facility] Last Admin: 12/26/17 09:29 Dose: 81 mg Clopidogrel Bisulfate (Plavix) 75 mg PO DAILY [facility] Last Admin: 12/26/17 10:34 Dose: 75 mg Dextrose (Dextrose 50% Inj) 0 ml IVP .STAT PRN; Protocol PRN Reason: Hypoglycemia Protocol Dextrose (Glutose 15) 0 gm PO .ONCE PRN; Protocol PRN Reason: Hypoglycemia Protocol Glucagon (Glucagen Diagnostic Kit) 0 mg IM .STAT PRN; Protocol PRN Reason: Hypoglycemia Protocol Heparin Sodium (Porcine) (Heparin) 5,000 units SC Q8 [facility] Last Admin: 12/24/17 21:34 Dose: 5,000 units Dextrose (Dextrose 5% In Water 1000 Ml) 1,000 mls @ 0 mls/hr IV .Q0M PRN; Protocol; Per Protocol PRN Reason: Hypoglycemia Protocol Sodium Chloride (Sodium Chloride 0.9%) 1,000 mls @ 75 mls/hr IV .[id number] [facility] Last Admin: 12/26/17 10:32 Dose: Not Given Vancomycin HCl 1,250 mg/ (Sodium Chloride) 250 mls @ 166.6 mls/hr IVPB Q12H [facility] PRN Reason: Protocol Last Admin: 12/26/17 06:17 Dose: 166.6 mls/hr Ciprofloxacin (Cipro 400mg/200ml Dsw) 400 mg in 200 mls @ 133 mls/hr IVPB Q12H [facility] PRN Reason: Protocol Last Admin: 12/26/17 01:32 Dose: 133 mls/hr Magnesium Sulfate/Dextrose (Magnesium Sulfate 1 Gm/100 Ml D5w) 1 gm in 100 mls @ 100 mls/hr IVPB Q1H [facility] Stop: 12/26/17 12:59 Last Admin: 12/26/17 10:34 Dose: 100 mls/hr Insulin Human Isoph/Insulin Regular (Novolin 70/30 (70/30 Units/Ml) 10 Ml) 14 units SC ACD [facility] Last Admin: 12/25/17 17:53 Dose: 14 units Insulin Human Isoph/Insulin Regular (Novolin 70/30 (70/30 Units/Ml) 10 Ml) 18 units SC ACB [facility] Last Admin: 12/26/17 08:07 Dose: 18 units Insulin Human NPH (Novolin N) 8 unit SC HS [facility] Last Admin: 12/25/17 21:21 Dose: 8 units Insulin Human Regular (Novolin R) 0 unit SC ACHS [facility] PRN Reason: Protocol Last Admin: 12/26/17 08:08 Dose: 3 unit Lactobacillus Acidophilus (Bacid Acidophilus) 1 cap PO BID [facility] Last Admin: 12/26/17 09:30 Dose: 1 cap Lisinopril (Zestril) 10 mg PO DAILY [facility] Last Admin: 12/26/17 09:29 Dose: 10 mg Metoprolol Succinate (Toprol Xl) 25 mg PO DAILY [facility] Last Admin: 12/26/17 09:30 Dose: 25 mg Morphine Sulfate (Morphine) 2 mg IVP Q4 PRN PRN Reason: Pain, severe (8-10) Last Admin: 12/25/17 04:26 Dose: 2 mg Morphine Sulfate (Morphine) 1 mg IVP Q4 PRN PRN Reason: Pain, moderate (4-7) Last Admin: 12/24/17 16:15 Dose: 1 mg Nicotine (Nicoderm Cq) 1 patch TD DAILY [facility] Last Admin: 12/26/17 09:29 Dose: 1 patch Ondansetron HCl (Zofran Inj) 4 mg IVP Q4 PRN PRN Reason: Nausea/Vomiting Rosuvastatin Calcium (Crestor) 40 mg PO HS [facility] Last Admin: 12/25/17 21:21 Dose: 40 mg - Labs Labs: 12/26/17 08:41 12/26/17 08:41 PT 15.1 SECONDS (9.7-12.2) H 12/25/17 07:08 INR 1.4 12/25/17 07:08 APTT 31 SECONDS (21-34) 12/25/17 07:08 - Constitutional Appears: Well, Non-toxic, No Acute Distress - Head Exam Head Exam: ATRAUMATIC, NORMAL INSPECTION - Respiratory Exam Respiratory Exam: NORMAL BREATHING PATTERN. absent: Respiratory Distress - Cardiovascular Exam Cardiovascular Exam: +S1, +S2 - GI/Abdominal Exam GI & Abdominal Exam: Soft. absent: Distended, Guarding, Rigid, Tenderness Additional comments: Packing in place x2 in LLQ wound. Dressing changed. - Rectal Exam Additional comments: Packing in place, dressing changed. No purulent drainage noted. - Neurological Exam Neurological Exam: Alert, Awake, Oriented x3 - Psychiatric Exam Psychiatric exam: Normal Affect, Normal Mood - Skin Skin Exam: Dry, Warm Assessment and Plan - Assessment and Plan (Free Text) Assessment: 42yo M s/p 1) Debridement of abdominal wall wound. 2) Incision and drainage of gwen-rectal abscess POD#1 - WBC increased to 18.2 from 17.7 - Wound cx = staph aureus, resistant to clinda and penicillin. Abx changed by ID to Cipro and Flagyl - If WBC continues to increase, possible repeat CT scan - Will change packing tomorrow - May resume Plavix and Heparin - Will apply warm compresses to hip area - Will FU repeat Cx from OR - Discussed plan with Dr. Carlo Vu PGY-4
--- NOTE | 2017-12-26 13:17 | CP.PCM.PN ---
Subjective - Date & Time of Evaluation Date of Evaluation: 12/26/17 Time of Evaluation: 11:50 - Subjective Subjective: Medical Attending Note: patient seen and examined at bedside with . Patient reports he is doing well. He denies pain at the site. He reports he is eager to home. I have explained to him that his white count remains high and will need to improve before he leaves from the hospital. I have affirmed with him he needs to stop smoking and understand how to use insulin. We will need to follow-up with surgery in regards to specific wound care. Objective - Vital Signs/Intake and Output Vital Signs (last 24 hours): Temp Pulse Resp BP Pulse Ox 98.5 F 89 20 133/77 97 12/26/17 07:20 12/26/17 09:28 12/26/17 07:20 12/26/17 09:28 12/26/17 07:20 Intake and Output: 12/26/17 12/26/17 06:59 18:59 Intake Total 375 Balance 375 - Medications Medications: Current Medications Acetaminophen (Tylenol 325mg Tab) 650 mg PO Q6 PRN PRN Reason: Fever >100.4 F Last Admin: 12/26/17 08:09 Dose: 650 mg Albuterol Sulfate (Albuterol 0.083% Inhal [place] (2.5 Mg/3 Ml) Ud) 2.5 mg INH RQ6 PRN PRN Reason: Shortness of Breath Aspirin (Ecotrin) 81 mg PO DAILY [facility] Last Admin: 12/26/17 09:29 Dose: 81 mg Clopidogrel Bisulfate (Plavix) 75 mg PO DAILY [facility] Last Admin: 12/26/17 10:34 Dose: 75 mg Dextrose (Dextrose 50% Inj) 0 ml IVP .STAT PRN; Protocol PRN Reason: Hypoglycemia Protocol Dextrose (Glutose 15) 0 gm PO .ONCE PRN; Protocol PRN Reason: Hypoglycemia Protocol Glucagon (Glucagen Diagnostic Kit) 0 mg IM .STAT PRN; Protocol PRN Reason: Hypoglycemia Protocol Heparin Sodium (Porcine) (Heparin) 5,000 units SC Q8 [facility] Last Admin: 12/24/17 21:34 Dose: 5,000 units Dextrose (Dextrose 5% In Water 1000 Ml) 1,000 mls @ 0 mls/hr IV .Q0M PRN; Protocol; Per Protocol PRN Reason: Hypoglycemia Protocol Sodium Chloride (Sodium Chloride 0.9%) 1,000 mls @ 75 mls/hr IV .[id number] [facility] Last Admin: 12/26/17 10:32 Dose: Not Given Vancomycin HCl 1,250 mg/ (Sodium Chloride) 250 mls @ 166.6 mls/hr IVPB Q12H [facility] PRN Reason: Protocol Last Admin: 12/26/17 06:17 Dose: 166.6 mls/hr Ciprofloxacin (Cipro 400mg/200ml Dsw) 400 mg in 200 mls @ 133 mls/hr IVPB Q12H [facility] PRN Reason: Protocol Last Admin: 12/26/17 01:32 Dose: 133 mls/hr Insulin Human Isoph/Insulin Regular (Novolin 70/30 (70/30 Units/Ml) 10 Ml) 14 units SC ACD [facility] Last Admin: 12/25/17 17:53 Dose: 14 units Insulin Human Isoph/Insulin Regular (Novolin 70/30 (70/30 Units/Ml) 10 Ml) 18 units SC ACB [facility] Last Admin: 12/26/17 08:07 Dose: 18 units Insulin Human NPH (Novolin N) 8 unit SC HS [facility] Last Admin: 12/25/17 21:21 Dose: 8 units Insulin Human Regular (Novolin R) 0 unit SC ACHS [facility] PRN Reason: Protocol Last Admin: 12/26/17 11:51 Dose: Not Given Lactobacillus Acidophilus (Bacid Acidophilus) 1 cap PO BID [facility] Last Admin: 12/26/17 09:30 Dose: 1 cap Lisinopril (Zestril) 10 mg PO DAILY [facility] Last Admin: 12/26/17 09:29 Dose: 10 mg Metoprolol Succinate (Toprol Xl) 25 mg PO DAILY [facility] Last Admin: 12/26/17 09:30 Dose: 25 mg Morphine Sulfate (Morphine) 2 mg IVP Q4 PRN PRN Reason: Pain, severe (8-10) Last Admin: 12/25/17 04:26 Dose: 2 mg Morphine Sulfate (Morphine) 1 mg IVP Q4 PRN PRN Reason: Pain, moderate (4-7) Last Admin: 12/24/17 16:15 Dose: 1 mg Nicotine (Nicoderm Cq) 1 patch TD DAILY [facility] Last Admin: 12/26/17 09:29 Dose: 1 patch Ondansetron HCl (Zofran Inj) 4 mg IVP Q4 PRN PRN Reason: Nausea/Vomiting Rosuvastatin Calcium (Crestor) 40 mg PO HS [facility] Last Admin: 12/25/17 21:21 Dose: 40 mg - Labs Labs: 12/26/17 08:41 12/26/17 08:41 PT 15.1 SECONDS (9.7-12.2) H 12/25/17 07:08 INR 1.4 12/25/17 07:08 APTT 31 SECONDS (21-34) 12/25/17 07:08 - Constitutional Appears: Non-toxic, No Acute Distress - Head Exam Head Exam: NORMAL INSPECTION - Eye Exam Eye Exam: EOMI - ENT Exam ENT Exam: Mucous Membranes Moist - Respiratory Exam Respiratory Exam: Clear to Ausculation Bilateral, NORMAL BREATHING PATTERN. absent: Rales, Rhonchi, Wheezes - Cardiovascular Exam Cardiovascular Exam: REGULAR RHYTHM, +S1, +S2 - GI/Abdominal Exam GI & Abdominal Exam: Soft, Normal Bowel Sounds. absent: Distended, Firm, Guarding, Rigid, Tenderness, Rebound Additional comments: packing over the LLQ: clean/dry/intact - Extremities Exam Extremities Exam: absent: Pedal Edema, Tenderness - Neurological Exam Neurological Exam: Alert, Awake, Oriented x3 - Psychiatric Exam Psychiatric exam: Normal Affect, Normal Mood - Skin Skin Exam: Dry, Normal Color, Warm Assessment and Plan - Assessment and Plan (Free Text) Assessment: 1. Chest Pain-->resolved Assessment/Plan * Cardiology (Dr. Garcia) on board-->help appreciated * Risk factors: prior MS/Stents X4, diabetes, smoker, lipid disorder, hypertension, male, family hx of mi * Cardiac enzymes negative 3 * Echocardiogram (12/24/17): normal left ventricular systolic function and wall motion. Normal doppler. * Patient is cardiac cleared for I&D; As per [place]/AHA guidelines, patient is undergoing a low risk procedure from a cardiac standpoint; however, patient does have intermediate risk due to significant cardiac related history (MS 8 years ago; stents x4). * We will need to f/u with surgery if planned for surgery intervention * If so, then will need to f/u surgery in regards to restart to patient's plavix. Note; stents placed 12 years ago. * CT Chest 12/23/17: 11mm ground glass density infiltrates in left upper lobe. minimal bibasilar pleural thickening. no pulmonary embolus (see full report) * Aspirin 81mg PO daily * Will restart Plavix 75mg PO daily * Toprol XL 25mg Po daily * Lisinopril 10mg PO daily * Crestor 20mg POqHS 2) Uncontrolled Diabetes Assessment/Plan * On admission: * home medications metformin 1000mg PO BID due to IV contrast administration with CT * home medication glipizide 10mg PO BID pending A1c value * Endocrinology (Dr. Bcekwith) on board--> help appreciated * a1c: 14.6 * Novolin 70/30 18 units AB ACB (start 12/25/17) * Novolin 70/30 14 sub QACD (active 12/24/17) * Novolin N 8 units subqHs * Novolin R sliding scale subq (low) * hypoglycemia protocol * Lisinopril 10mg PO daily * Crestor 40mg POqHS * environmental educator referral placed * Dopster referral place 3) Multiple Abscesses Assessment/plan * Risk factors: uncontrolled diabetes, and smoker * Surgery (Dr. Matos) on board-->help appreciated * possible bedside drainage if areas do not continue to drain properly * wound care consulted, recs for possible options for gwen-rectal and LLQ wound appreciated * Infectious (Dr. Mckeon) on board-->help appreciated * CT 12/23/17: cutaneous and subcutaneous collection interposed between the posterior skin surface in the perineum this is midline with caudal length 5.3cm and orthogonal measurements 3.7x3.5cm. no evidence of communication with rectum. cutaneous and subcutaneous phlegmonous process at the level of the iliac crest. findings extend from the skin to the rectus muscle. there is no intra-abdominal intraperitoneal extension. this finding extends from the skin surface to a depth of 2.7cm (see full report) * d/c Clindamycin 600mg [id number] (active since 12/24-10/08) * Vancomcyin 1250mg IVPB Q12H (active since 12/24/17)-->random vancomycin elevated -->Yessica held-->random vancomycin tomorrow prior to restarting * Start Ciprofloxacin 400mg IV Q12H (active since 12/25/17) * Bacid 1 tab PO BID 4) History of Known CAD Assessment/plan * Echocardiogram (12/24/17): normal left ventricular systolic function and wall motion. Normal doppler. * Aspirin 81mg PO daily * Plavix restarted * Toprol XL 25mg Po daily * Lisinopril 10mg PO daily * Crestor 20mg POqHS 5) History of HTN Assessment/plan * Toprol XL 25mg Po daily * Lisinopril 10mg PO daily 6) History of Lipid Disorder Assessment/plan * Crestor 40mg POqHS 7) History of Asthma Assessment/plan * albuterol nebulizer q6prn shortness of breath * Patient is not in acute exacerbation 8) Tobacco use Assessment/plan * patient urged to quit smoking * patient counseled on detrimental effects of smoking on his health * nicotine patch 21mg/24h daily 9) Leukocytosis Assessment/Plan * Infectious Disease (Dr. Mckeon) on case-->help appreciated * Vancomcyin 1250mg IVPB Q12H (active since 12/24/17)-->random vancomycin elevated-->Yessica held-->random vancomycin tomorrow prior to restarting * Start Ciprofloxacin 400mg IV Q12H (active since 12/25/17) * Blood culture (12/23/17): no growth after 48hours X2 * Abscess abdominal Staph Aureus * Resistant to Clindamycin * Sensitive to Vancomycin and Cipro * Patient is Pen allergic * 12/26/17: patient is also postoperative Day 1 10) Prophylactic measure * heparin sc 5000u q8h * Bacid 1 tab PO daily * PT/ OT * Wound care referral * Dopster referral * PT/OT eval Disposition: * Patient is postoperative day 1 from I&D. * Patient will need white count to come down prior to discharge and with appropriate antibiotic. Patient is on Day 2 ciprofloxacin today. * Patient will need teaching in regards to his diabetes and insulin. environmental educator referral awaiting and slag motor operator education. Nursing will need to provide teaching. * Insulin [facility]-->we will need to provide scripts for the case management to send to the foundation to allow patient to leave with insulin since he is new to insulin. * Since patients does not have a primary care doctor, he will need to be established in the [facility] ([id number]) for further diabetes management including annual screenings for eyes and feet. * He has been reminded to stop smoking and he is aware that his diabetes will delay wound healing.
[2017-12-26] MEDS: (Novolin N) Insulin Human Isophane (NPH) 100 u/ml 10 ml vial SC SCH (21:21)
[2017-12-27] MEDS: Sodium Chloride 0.9% 1,000 ML IV SCH (02:27)
[2017-12-27] MEDS: Ciprofloxacin 400mg/200ml D5W 400 MG/200 ML BAG IVPB SCH (02:27)
--- NOTE | 2017-12-27 05:02 | PN ---
Copied To: Gabby Beckwith MD Attending MD: Gabby Beckwith MD DATE: 12/26/2017 ENDO FOLLOWUP NOTE LOCATION: Room 651 This is a 42-year-old male with recent uncontrolled type 2 insulin-requiring diabetes, now being followed closely for metabolic management. His glycemic levels are fluctuating as noted today with glucose values ranging from 242 to 291 mg/dL. His latest chemistry showed a BUN of 12, sodium 138, potassium 4.1, chloride 103, CO2 of 26, glucose 245, and creatinine 0.9. At this time, we will modify once again his basal and premix insulin regimen and increase the Novolin 70/30 to 24 units before breakfast and 18 units before dinner to start today. We will also increase the basal insulin with NPH given as 12 units subcu at bedtime daily as ordered. We will obtain serial chemistries and supplement accordingly as needed. We will follow. Gabby Beckwith MD
--- NOTE | 2017-12-27 06:39 | PN ---
Copied To: Gabby Beckwith MD Attending MD: Gabby Beckwith MD DATE: 12/26/2017 ENDO FOLLOWUP NOTE LOCATION: Room 651. SUBJECTIVE: This is a 42-year-old male with recent uncontrolled type 2 insulin requiring diabetes, . His glycemic levels also fluctuated but improved and chemistries showed a BUN of , potassium 4.1, chloride 103, CO2 26, glucose 245, and creatinine 0.9. At this time, we will modify once again her basal and premixed insulin regimen and increase the Novolin 70/30 to 24 units before breakfast and 20 units before dinner to start today. We will also increase the basal insulin with NPH to be given as 12 units subcu at bedtime daily as . We will follow and advise accordingly. Gabby Beckwith MD
--- NOTE | 2017-12-27 07:07 | CON ---
Copied To: Alicia Mckeon MD Attending MD: Alicia Mckeon MD DATE: 12/24/2017 HISTORY OF PRESENT ILLNESS: This patient is a 42-year-old male. He has history of hypertension, diabetes, VA, history of four stents eight years ago. He reports a skin cyst in the left side of his abdomen and one on his right buttock and it has been enlarged and inflamed. He is complaining of pain, and he said it was very painful yesterday when he came in, and he has been squeezing it and it got enlarged, especially on the right butt, and the cyst has become enlarged and inflamed on the left abdomen. is at the bedside, and she is saying he is having terrible pain, but I sympathize with them, but I doubt, he needs much more pain medications at this time, and he did come in with chest pain and has some cardiac history. The patient, however, denies any nausea, vomiting, abdominal pain, urinary complaints; and he is on antibiotics at this time. PAST MEDICAL HISTORY: Significant for VA eight years ago with four stents, asthma, diabetes mellitus, hypertension, and hyperlipidemia. MEDICATIONS: At home were glipizide 10 mg b.i.d., ramipril 5 mg daily, atorvastatin 80 mg, metoprolol 25 mg, metformin 1000 b.i.d., Plavix 75 daily, aspirin 81 mg, and albuterol inhaler twice a day. SURGICAL HISTORY: Significant for appendicectomy and stent placement. FAMILY HISTORY: Mother had VA in 40s and recently had stents placed. Father is asthmatic and due to old age. SOCIAL HISTORY: He is unemployed. He smokes one pack per day for 25 years. Denies alcohol or drug abuse. He lives with his , daughter, and son; and recently had an VA two weeks ago. REVIEW OF SYSTEMS: I find he has fever, weakness. He complains of chest pain, dyspnea on exertion and palpitations when he arrived yesterday. Respiratory: No cough, no chest congestion, no pain with coughing. Denies any constipation, diarrhea, nausea, and vomiting. Denies any urinary symptoms. He does complain of back pain, and he denies any neurological problems at this time. He is a light smoker, less than 10 cigarettes a day. Cardiac: He has high cholesterol, hypertension. Pulmonary raygoza, he has asthma. Endocrine: He has diabetes type 2. Psych: He has no substance abuse. SURGICAL HISTORY: Significant for appendicectomy, coronary artery stents, and history of anesthesia in the past. MEDICATIONS: He is on Tylenol, albuterol, Ecotrin. I just added clindamycin. He was already on vancomycin, and he is on Plavix, . He is on 70/30 insulin, and he is getting heparin subcutaneous for DVT prophylaxis. He is on Zestril, Toprol-XL, morphine 2 mg every 4 hours for pain, Nicoderm, Crestor, and he is on IV fluids and vancomycin 1250 every 12 hours. PHYSICAL EXAMINATION: VITAL SIGNS: I find his temperature, T-max is 99.1, pulse 88, blood pressure 138/78, respirations are 20. HEENT: Head is atraumatic and normocephalic. Pupils reacting to light. Tongue is moist. NECK: Supple. JVP is flat. Trachea is central. LUNGS: Clear to auscultation. No crackles or rales present. HEART: S1, S2 regular. No murmurs appreciated. ABDOMEN: Soft, nontender. No guarding. No rigidity present. EXTREMITIES: Left lower quadrant, there is an abscess with the dressing on it. Surgical dressing placed; and he has a right buttock abscess also which is superficial and we will probably need a small I and D; and extremities have otherwise no edema, clubbing, or cyanosis. LABORATORY DATA: Labs are noted. Labs show white count is 15.6 today, and it was 12.3 yesterday, hemoglobin 11.1, hematocrit 32.3, platelets count 423,000, and BUN is 7, creatinine 0.6, glucose 224, TSH is elevated at 4.75, T4 is 1.21. May be we need to see the free T3; and the other thing is that HIV screening was negative. His urine did have 1+ ketones. Urine blood 1+ and rbc 6; and he . We want to make sure he is ketone free. He is on IV fluids, suggest at this time to continue with vancomycin and clindamycin. I would discontinue the Azactam, and the pelvic and abdominal CT was done yesterday, and today, he also had chest CT. We will look into those. It shows phlegmonous process at central area of necrosis or abscess extending from the skin surface to the perineum posteriorly. There is no evidence of sinus tract or fistulous communication with the rectum or intraperitoneal. It is cutaneous impose between skin surface in the perineum, there is midline . There is no evidence of communication with the rectum, and there are no intraabdominal extensions. These appear to be skin abscesses, and once they are I and D'ed, and we have culture report, Staph aureus. Once they give us the sensitivities, we can probably put him on oral antibiotics after an I and D, and he can go, but at this time, I will continue vancomycin and clindamycin; also put him on acidophilus so that he does not develop diarrhea, and he has cardiac issues and they are following. Alicia Mckeon MD
[2017-12-27 07:22] LABS: BASO # 0.1 K/uL (0.0-0.2); BASO % 0.6 % (0.0-2.0); EOS # 0.4 K/uL (0.0-0.7); EOS % 2.4 % (0.0-4.0); HEMOGLOBIN 10.8 g/dL (12.0-18.0); LYMPH % 12.2 % (20.0-40.0); MEAN CELL VOLUME 84.4 fL (80.0-94.0); MEAN CORPUSCULAR HEMOGLOBIN 28.9 pg (27.0-31.0); MEAN CORPUSCULAR HGB CONC 34.2 g/dL (33.0-37.0); MEAN PLATELET VOLUME 7.5 fL (7.2-11.7); MONO # 1.6 K/uL (0.0-0.8); MONO % 9.7 % (0.0-10.0); NEUT # 12.3 K/uL (1.8-7.0); NEUT % 75.1 % (50.0-75.0); RBC 3.73 Mil/uL (4.40-5.90); RED CELL DISTRIBUTION WIDTH 13.1 % (11.5-14.5); WHITE BLOOD COUNT 16.3 K/uL (4.8-10.8)
[2017-12-27] MEDS ORDERED: (Novolin 70/30) NPH/Regular 70/30 Units/ml 10 ml vial SC SCH ×2 (07:30→16:30)
[2017-12-27 07:46] LABS: ALB/GLOB RATIO 0.9 (1.0-2.1); ALT/SGPT 20 U/L (21-72); AST/SGOT 16 U/L (17-59); BLOOD UREA NITROGEN 11 mg/dL (9-20); CALCIUM 8.8 mg/dl (8.6-10.4); GFR AFRICAN-AMERICAN > 60; GFR NON-AFRICAN AMERICAN > 60
--- NOTE | 2017-12-27 07:48 | CP.PCM.PN ---
Subjective - Date & Time of Evaluation Date of Evaluation: 12/27/17 Time of Evaluation: 07:47 Objective - Vital Signs/Intake and Output Vital Signs (last 24 hours): Temp Pulse Resp BP Pulse Ox 98.5 F 76 20 151/82 H 94 L 12/27/17 04:24 12/27/17 04:24 12/27/17 04:24 12/27/17 04:24 12/27/17 04:24 Intake and Output: 12/27/17 12/27/17 06:59 18:59 Intake Total 850 Balance 850 - Medications Medications: Current Medications Acetaminophen (Tylenol 325mg Tab) 650 mg PO Q6 PRN PRN Reason: Fever >100.4 F Last Admin: 12/26/17 17:12 Dose: 650 mg Albuterol Sulfate (Albuterol 0.083% Inhal [place] (2.5 Mg/3 Ml) Ud) 2.5 mg INH RQ6 PRN PRN Reason: Shortness of Breath Aspirin (Ecotrin) 81 mg PO DAILY [facility] Last Admin: 12/26/17 09:29 Dose: 81 mg Clopidogrel Bisulfate (Plavix) 75 mg PO DAILY [facility] Last Admin: 12/26/17 10:34 Dose: 75 mg Dextrose (Dextrose 50% Inj) 0 ml IVP .STAT PRN; Protocol PRN Reason: Hypoglycemia Protocol Dextrose (Glutose 15) 0 gm PO .ONCE PRN; Protocol PRN Reason: Hypoglycemia Protocol Glucagon (Glucagen Diagnostic Kit) 0 mg IM .STAT PRN; Protocol PRN Reason: Hypoglycemia Protocol Heparin Sodium (Porcine) (Heparin) 5,000 units SC Q8 [facility] Last Admin: 12/27/17 07:14 Dose: 5,000 units Dextrose (Dextrose 5% In Water 1000 Ml) 1,000 mls @ 0 mls/hr IV .Q0M PRN; Protocol; Per Protocol PRN Reason: Hypoglycemia Protocol Sodium Chloride (Sodium Chloride 0.9%) 1,000 mls @ 75 mls/hr IV .[id number] [facility] Last Admin: 12/27/17 02:27 Dose: 75 mls/hr Vancomycin HCl 1,250 mg/ (Sodium Chloride) 250 mls @ 166.6 mls/hr IVPB Q12H [facility] PRN Reason: Protocol Last Admin: 12/27/17 07:16 Dose: 166.6 mls/hr Ciprofloxacin (Cipro 400mg/200ml Dsw) 400 mg in 200 mls @ 133 mls/hr IVPB Q12H [facility] PRN Reason: Protocol Last Admin: 12/27/17 02:27 Dose: 133 mls/hr Insulin Human Isoph/Insulin Regular (Novolin 70/30 (70/30 Units/Ml) 10 Ml) 24 units SC ACB [facility] Insulin Human Isoph/Insulin Regular (Novolin 70/30 (70/30 Units/Ml) 10 Ml) 18 units SC ACD [facility] Insulin Human NPH (Novolin N) 12 unit SC HS [facility] Insulin Human Regular (Novolin R) 0 unit SC ACHS [facility] PRN Reason: Protocol Last Admin: 12/26/17 21:22 Dose: Not Given Lactobacillus Acidophilus (Bacid Acidophilus) 1 cap PO BID [facility] Last Admin: 12/26/17 17:10 Dose: 1 cap Lisinopril (Zestril) 10 mg PO DAILY [facility] Last Admin: 12/26/17 09:29 Dose: 10 mg Metoprolol Succinate (Toprol Xl) 25 mg PO DAILY [facility] Last Admin: 12/26/17 09:30 Dose: 25 mg Morphine Sulfate (Morphine) 2 mg IVP Q4 PRN PRN Reason: Pain, severe (8-10) Last Admin: 12/27/17 01:04 Dose: 2 mg Morphine Sulfate (Morphine) 1 mg IVP Q4 PRN PRN Reason: Pain, moderate (4-7) Last Admin: 12/24/17 16:15 Dose: 1 mg Nicotine (Nicoderm Cq) 1 patch TD DAILY [facility] Last Admin: 12/26/17 09:29 Dose: 1 patch Ondansetron HCl (Zofran Inj) 4 mg IVP Q4 PRN PRN Reason: Nausea/Vomiting Rosuvastatin Calcium (Crestor) 40 mg PO HS [facility] Last Admin: 12/26/17 21:22 Dose: 40 mg - Labs Labs: 12/27/17 07:08 12/27/17 07:08 PT 15.1 SECONDS (9.7-12.2) H 12/25/17 07:08 INR 1.4 12/25/17 07:08 APTT 31 SECONDS (21-34) 12/25/17 07:08
[2017-12-27 08:26] VITALS: BP 129/76; PULSE 74; RESP 18; TEMP 98.9; O2SAT 100
[2017-12-27] MEDS: (Novolin R) Insulin Human Regular 100 units/ml vial SC SCH (08:39)
--- NOTE | 2017-12-27 09:29 | CP.PCM.DIS ---
<Javon Yenophe - Last Filed: 12/27/17 09:49> Provider - Provider Date of Admission: 12/23/17 17:46 Attending physician: Halina Schumacher DO Time Spent in preparation of Discharge (in minutes): 45 Diagnosis - Discharge Diagnosis (1) Left against medical advice Status: Acute Priority: High (2) Abscess of abdominal wall Status: Acute (3) Abscess of buttock Status: Acute (4) Hyperglycemia due to type 2 diabetes mellitus Status: Acute (5) Leucocytosis Status: Acute (6) Neuropathy Status: Acute (7) Noncompliance with medication regimen Status: Acute Hospital Course - Lab Results Lab Results: Micro Results 12/23/17 15:10 Blood Blood Culture - Preliminary NO GROWTH AFTER 3 DAYS 12/23/17 18:10 Blood Blood Culture - Preliminary NO GROWTH AFTER 3 DAYS 12/23/17 19:34 Urine Urine Culture - Final No Growth (<1,000 CFU/ML) 12/23/17 15:33 Abscess - Abdominal Gram Stain - Final 12/23/17 15:33 Abscess - Abdominal Wound Culture - Final Staphylococcus Aureus Most Recent Lab Values WBC 16.3 K/uL (4.8-10.8) H 12/27/17 07:08 RBC 3.73 Mil/uL (4.40-5.90) L 12/27/17 07:08 Hgb 10.8 g/dL (12.0-18.0) L 12/27/17 07:08 Hct 31.5 % (35.0-51.0) L 12/27/17 07:08 MCV 84.4 fL (80.0-94.0) 12/27/17 07:08 MCH 28.9 pg (27.0-31.0) 12/27/17 07:08 MCHC 34.2 g/dL (33.0-37.0) 12/27/17 07:08 RDW 13.1 % (11.5-14.5) 12/27/17 07:08 Plt Count 503 K/uL (130-400) H 12/27/17 07:08 MPV 7.5 fL (7.2-11.7) 12/27/17 07:08 Neut % (Auto) 75.1 % (50.0-75.0) H 12/27/17 07:08 Lymph % (Auto) 12.2 % (20.0-40.0) L 12/27/17 07:08 [place] % (Auto) 9.7 % (0.0-10.0) 12/27/17 07:08 Eos % (Auto) 2.4 % (0.0-4.0) 12/27/17 07:08 Baso % (Auto) 0.6 % (0.0-2.0) 12/27/17 07:08 Neut # (Auto) 12.3 K/uL (1.8-7.0) H 12/27/17 07:08 Lymph # (Auto) 2.0 K/uL (1.0-4.3) 12/27/17 07:08 [place] # (Auto) 1.6 K/uL (0.0-0.8) H 12/27/17 07:08 Eos # (Auto) 0.4 K/uL (0.0-0.7) 12/27/17 07:08 Baso # (Auto) 0.1 K/uL (0.0-0.2) 12/27/17 07:08 PT 15.1 SECONDS (9.7-12.2) H 12/25/17 07:08 INR 1.4 12/25/17 07:08 APTT 31 SECONDS (21-34) 12/25/17 07:08 D-Dimer, Quantitative 315 ng/mlDDU (0-243) H 12/23/17 15:45 Sodium 140 mmol/L (132-148) 12/27/17 07:08 Potassium 3.9 mmol/L (3.6-5.2) 12/27/17 07:08 Chloride 103 mmol/L (98-107) 12/27/17 07:08 Carbon Dioxide 27 mmol/L (22-30) 12/27/17 07:08 Anion Gap 13 (10-20) 12/27/17 07:08 BUN 11 mg/dL (9-20) 12/27/17 07:08 Creatinine 0.7 mg/dL (0.8-1.5) L 12/27/17 07:08 Est GFR ( Amer) > 60 12/27/17 07:08 Est GFR (Non-Af Amer) > 60 08/06/18 07:08 POC Glucose (mg/dL) 291 mg/dL (65-110) H 12/25/17 16:50 Random Glucose 236 mg/dL (75-110) H 12/27/17 07:08 Hemoglobin A1c 14.6 % (4.2-6.5) H 12/24/17 06:35 Calcium 8.8 mg/dl (8.6-10.4) 12/27/17 07:08 Phosphorus 2.2 mg/dL (2.5-4.5) L 12/27/17 07:08 Magnesium 1.7 mg/dL (1.6-2.3) 12/27/17 07:08 Total Bilirubin 0.2 mg/dL (0.2-1.3) 12/27/17 07:08 AST 16 U/L (17-59) L D 12/27/17 07:08 ALT 20 U/L (21-72) L 12/27/17 07:08 Alkaline Phosphatase 142 U/L (38-126) H D 12/27/17 07:08 Total Creatine Kinase < 20 U/L (55-170) L 12/24/17 04:18 CK-MB (Mass) 0.26 ng/mL (0.0-3.38) 12/24/17 04:18 Troponin I < 0.0120 ng/mL (0.00-0.120) 12/24/17 04:18 NT-Pro-B Natriuret Pep 174 pg/mL (0-450) 12/23/17 15:45 Total Protein 6.5 g/dL (6.3-8.3) 12/27/17 07:08 Albumin 3.0 g/dL (3.5-5.0) L 12/27/17 07:08 Globulin 3.5 gm/dL (2.2-3.9) 12/27/17 07:08 Albumin/Globulin Ratio 0.9 (1.0-2.1) L 12/27/17 07:08 Triglycerides 147 mg/dL (0-149) 12/24/17 06:35 Cholesterol 105 mg/dL (0-199) 12/24/17 06:35 LDL Cholesterol Direct 42 mg/dL (0-129) 12/24/17 06:35 HDL Cholesterol 24 mg/dL (30-70) L 12/24/17 06:35 Lipase 162 U/L (23-300) 12/23/17 15:45 Free T4 1.20 ng/dL (0.78-2.19) 12/24/17 06:35 TSH 3rd Generation 4.75 mIU/L (0.46-4.68) H 12/24/17 06:35 Urine Color Straw (YELLOW) 12/23/17 19:28 Urine Clarity Clear (Clear) 12/23/17 19:28 Urine pH 5.0 (5.0-8.0) 12/23/17 19:28 Ur Specific [place] 1.044 (1.003-1.030) H 12/23/17 19:28 Urine Protein 2+ mg/dL (NEGATIVE) H 12/23/17 19:28 Urine Glucose (UA) 3+ mg/dL (Normal) H 12/23/17 19:28 Urine Ketones 1+ mg/dL (NEGATIVE) H 12/23/17 19:28 Urine Blood 1+ (NEGATIVE) H 12/23/17 19:28 Urine Nitrate Negative (NEGATIVE) 12/23/17 19:28 Urine Bilirubin Negative (NEGATIVE) 12/23/17 19:28 Urine Urobilinogen Normal mg/dL (0.2-1.0) 12/23/17 19:28 Ur Leukocyte Esterase Neg Fei/uL (Negative) 12/23/17 19:28 Urine WBC (Auto) < 1 /hpf (0-5) 12/23/17 19:28 Urine RBC (Auto) 6 /hpf (0-3) H 12/23/17 19:28 Vancomycin Trough 15.8 ug/mL (5.0-10.0) H 12/25/17 19:36 Random Vancomycin 12.4 ug/mL 12/27/17 07:08 HIV 1&2 Antibody Screen Negative (NEGATIVE) 12/24/17 06:35 Blood Type O POSITIVE 12/25/17 07:08 Antibody Screen Negative 12/25/17 07:08 - Hospital Course Hospital Course: HPI Patient is a 42 year old male with past medical history of hypertension, diabetes, myocardial infarcation 8 years ago with 4 stents placed, who presents to the ED with complaint of left lower quadrant abdominal abscess, new onset back pain, and chest pain with palpitations. Patient reports waking up this morning at 6AM with sudden sharp back pain that begins in lumbar spine and extends upwards. He reports he recently drove back from [place] 4 days ago. Patient reports he started to feel unwell last weekend and felt weak with subjective fever. He reports having a cyst in left side of abdomen which he tried to squeeze out, but the cyst became enlarged and inflamed. He reports the cyst became more painful last night after he tried to clean it with peroxide. He states palpitations have been occurring for past few days and chest pain began just prior to admission. 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 He reports he can only walk half a block due to exertion. Patient denies chest pressure or light-headed feeling. Patient denies abdominal pain, nausea, vomiting, dysuria, shortness of breath or cough. 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- reports echo done in office that was normal PMHx: [place] 8 years ago with 4 stents, asthma, DM, HTN, HLD Meds: atorvastatin 80, glipizide 10mg BID, ramipril 5mg daily, metoprolol XL 25mg, metformin 1000mg PO BID, plavix 75mg PO daily, aspirin 81mg daily, albuterol inhaler twice per month PSHx: appendectomy 30 years ago, stents 8 years ago FamHx: mother with KS in her 40s, recent stents at [facility], DM, HTN; father with asthma old age Social Hx: currently unemployed, smokes 1ppd x 25 years, denies alcohol and drug use; lives with , daughter and son; recently had [place] 2 weeks ago Hospital Course: Pt was admitted to undergo Incision and Drainage of abdnomianl, right lateral gluteal and midline gluteal abscesses. Pt was started on IV Cipro 400 and Vancomycin 1.25g. Pt underwent bedside I&D of abdominal and midline gluteal abscess. Abdominal abscess was dressed with packing, midline gluteal packing was not used because of fecal contamination risk as per SX team. Lateral gluteal abscess was demarcated and shown to be draining purluent fluid and was left for observation and possible lancing. Pt left AMA on 12/27/17 9am Imaging and Diagnostics: 12/23 CXR: neg 12/[address]: L upper lobe ground glass 12/[address]: necrosis/ abscess extending from survice to perineum 12/24 EKG:NSR Discharge Exam - Head Exam Head Exam: NORMAL INSPECTION Additional comments: non toxic - Eye Exam Eye Exam: EOMI, Normal appearance. absent: Scleral icterus - ENT Exam ENT Exam: Mucous Membranes Moist - Neck Exam Neck exam: Normal Inspection - Respiratory Exam Respiratory Exam: Clear to PA & Lateral, NORMAL BREATHING PATTERN. absent: Rales, Rhonchi, Wheezes - Cardiovascular Exam Cardiovascular Exam: RRR, +S1, +S2. absent: Diastolic murmur, Systolic Murmur - GI/Abdominal Exam GI & Abdominal Exam: Normal Bowel Sounds, Tenderness (over abd abscess). absent : Diminished Bowel Sounds, Firm - Extremities Exam Extremities exam: normal capillary refill, normal inspection - Back Exam Back exam: tenderness (bottock abscesses) - Neurological Exam Neurological exam: Alert, CN II-XII Intact, Normal Gait, Oriented x3 - Psychiatric Exam Psychiatric exam: Normal Affect, Normal Mood - Skin Skin Exam: Normal Color Discharge Plan - Follow Up Plan Condition: SERIOUS Disposition: AGAINST MEDICAL ADVICE <Dann Matos - Last Filed: 12/27/17 20:53> Provider - Provider Date of Admission: 12/23/17 17:46 Attending physician: Halina Schumacher, Hospital Course - Lab Results Lab Results: Micro Results 12/23/17 15:10 Blood Blood Culture - Preliminary NO GROWTH AFTER 3 DAYS 12/23/17 18:10 Blood Blood Culture - Preliminary NO GROWTH AFTER 3 DAYS 12/23/17 19:34 Urine Urine Culture - Final No Growth (<1,000 CFU/ML) 12/23/17 15:33 Abscess - Abdominal Gram Stain - Final 12/23/17 15:33 Abscess - Abdominal Wound Culture - Final Staphylococcus Aureus Most Recent Lab Values WBC 16.3 K/uL (4.8-10.8) H 12/27/17 07:08 RBC 3.73 Mil/uL (4.40-5.90) L 12/27/17 07:08 Hgb 10.8 g/dL (12.0-18.0) L 12/27/17 07:08 Hct 31.5 % (35.0-51.0) L 12/27/17 07:08 MCV 84.4 fL (80.0-94.0) 12/27/17 07:08 MCH 28.9 pg (27.0-31.0) 12/27/17 07:08 MCHC 34.2 g/dL (33.0-37.0) 12/27/17 07:08 RDW 13.1 % (11.5-14.5) 12/27/17 07:08 Plt Count 503 K/uL (130-400) H 12/27/17 07:08 MPV 7.5 fL (7.2-11.7) 12/27/17 07:08 Neut % (Auto) 75.1 % (50.0-75.0) H 12/27/17 07:08 Lymph % (Auto) 12.2 % (20.0-40.0) L 12/27/17 07:08 [place] % (Auto) 9.7 % (0.0-10.0) 12/27/17 07:08 Eos % (Auto) 2.4 % (0.0-4.0) 12/27/17 07:08 Baso % (Auto) 0.6 % (0.0-2.0) 12/27/17 07:08 Neut # (Auto) 12.3 K/uL (1.8-7.0) H 12/27/17 07:08 Lymph # (Auto) 2.0 K/uL (1.0-4.3) 12/27/17 07:08 [place] # (Auto) 1.6 K/uL (0.0-0.8) H 12/27/17 07:08 Eos # (Auto) 0.4 K/uL (0.0-0.7) 12/27/17 07:08 Baso # (Auto) 0.1 K/uL (0.0-0.2) 12/27/17 07:08 PT 15.1 SECONDS (9.7-12.2) H 12/25/17 07:08 INR 1.4 12/25/17 07:08 APTT 31 SECONDS (21-34) 12/25/17 07:08 D-Dimer, Quantitative 315 ng/mlDDU (0-243) H 12/23/17 15:45 Sodium 140 mmol/L (132-148) 12/27/17 07:08 Potassium 3.9 mmol/L (3.6-5.2) 12/27/17 07:08 Chloride 103 mmol/L (98-107) 12/27/17 07:08 Carbon Dioxide 27 mmol/L (22-30) 12/27/17 07:08 Anion Gap 13 (10-20) 12/27/17 07:08 BUN 11 mg/dL (9-20) 12/27/17 07:08 Creatinine 0.7 mg/dL (0.8-1.5) L 12/27/17 07:08 Est GFR ( Amer) > 60 12/27/17 07:08 Est GFR (Non-Af Amer) > 60 12/27/17 07:08 POC Glucose (mg/dL) 263 mg/dL (65-110) H 12/27/17 06:03 Random Glucose 236 mg/dL (75-110) H 12/27/17 07:08 Hemoglobin A1c 14.6 % (4.2-6.5) H 12/24/17 06:35 Calcium 8.8 mg/dl (8.6-10.4) 12/27/17 07:08 Phosphorus 2.2 mg/dL (2.5-4.5) L 12/27/17 07:08 Magnesium 1.7 mg/dL (1.6-2.3) 12/27/17 07:08 Total Bilirubin 0.2 mg/dL (0.2-1.3) 12/27/17 07:08 AST 16 U/L (17-59) L D 12/27/17 07:08 ALT 20 U/L (21-72) L 12/27/17 07:08 Alkaline Phosphatase 142 U/L (38-126) H D 12/27/17 07:08 Total Creatine Kinase < 20 U/L (55-170) L 12/24/17 04:18 CK-MB (Mass) 0.26 ng/mL (0.0-3.38) 12/24/17 04:18 Troponin I < 0.0120 ng/mL (0.00-0.120) 12/24/17 04:18 NT-Pro-B Natriuret Pep 174 pg/mL (0-450) 12/23/17 15:45 Total Protein 6.5 g/dL (6.3-8.3) 12/27/17 07:08 Albumin 3.0 g/dL (3.5-5.0) L 12/27/17 07:08 Globulin 3.5 gm/dL (2.2-3.9) 12/27/17 07:08 Albumin/Globulin Ratio 0.9 (1.0-2.1) L 12/27/17 07:08 Triglycerides 147 mg/dL (0-149) 12/24/17 06:35 Cholesterol 105 mg/dL (0-199) 12/24/17 06:35 LDL Cholesterol Direct 42 mg/dL (0-129) 12/24/17 06:35 HDL Cholesterol 24 mg/dL (30-70) L 12/24/17 06:35 Lipase 162 U/L (23-300) 12/23/17 15:45 Free T4 1.20 ng/dL (0.78-2.19) 12/24/17 06:35 TSH 3rd Generation 4.75 mIU/L (0.46-4.68) H 12/24/17 06:35 Urine Color Straw (YELLOW) 12/23/17 19:28 Urine Clarity Clear (Clear) 12/23/17 19:28 Urine pH 5.0 (5.0-8.0) 12/23/17 19:28 Ur Specific [place] 1.044 (1.003-1.030) H 12/23/17 19:28 Urine Protein 2+ mg/dL (NEGATIVE) H 12/23/17 19:28 Urine Glucose (UA) 3+ mg/dL (Normal) H 12/23/17 19:28 Urine Ketones 1+ mg/dL (NEGATIVE) H 12/23/17 19:28 Urine Blood 1+ (NEGATIVE) H 12/23/17 19:28 Urine Nitrate Negative (NEGATIVE) 12/23/17 19: Urine Bilirubin Negative (NEGATIVE) 12/23/17 19:28 Urine Urobilinogen Normal mg/dL (0.2-1.0) 12/23/17 19:28 Ur Leukocyte Esterase Neg Fei/uL (Negative) 12/23/17 19:28 Urine WBC (Auto) < 1 /hpf (0-5) 12/23/17 19:28 Urine RBC (Auto) 6 /hpf (0-3) H 12/23/17 19:28 Vancomycin Trough 15.8 ug/mL (5.0-10.0) H 12/25/17 19:36 Random Vancomycin 12.4 ug/mL 12/27/17 07:08 HIV 1&2 Antibody Screen Negative (NEGATIVE) 12/24/17 06:35 Blood Type O POSITIVE 12/25/17 07:08 Antibody Screen Negative 12/25/17 07:08 Attending/Attestation - Attestation I have personally seen and examined this patient.: No I have fully participated in the care of the patient.: Yes I have reviewed all pertinent clinical information, including history, physical exam and plan: Yes Notes (Text): 12/27/17 20:53 Patient signed AMA before I could evaluate him. Dann Matos D.O.
--- NOTE | 2017-12-27 13:07 | VASCLAB ---
Date of service: 12/24/2017 PROCEDURE: Lower Extremity Venous Duplex Exam. HISTORY: rule out DVT PRIORS: None. TECHNIQUE: Bilateral common femoral, femoral, popliteal and posterior tibial, peroneal and great saphenous veins were evaluated. Flow was assessed with color Doppler, compressibility, assessment of phasic flow and augmentation response. Report prepared by Cristino Huertas, BS, RVT FINDINGS: RIGHT: 1. Common Femoral Vein: 1.1. Compressibility - Fully compressible: Thrombus - None : Flow - Phasic: Augmentation -Normal: Reflux - None. 2. Femoral Vein: 2.1. Compressibility - Fully compressible: Thrombus - None : Flow - Phasic: Augmentation -Normal: Reflux - None. 3. Popliteal Vein: 3.1. Compressibility - Fully compressible: Thrombus - None : Flow - Phasic: Augmentation -Normal: Reflux - None. 4. Posterior Tibial Vein: 4.1. Compressibility - Fully compressible: Thrombus - None: Flow - Phasic: Augmentation -Normal: Reflux - None. 5. Peroneal Vein: 5.1. Compressibility - Fully compressible: Thrombus - None: Flow - Phasic: Augmentation -Normal: Reflux - None. 6. Great Saphenous Vein: 6.1. Compressibility - Fully compressible: Thrombus - None: Flow - Phasic: Augmentation - Normal: Reflux - None. LEFT: 1. Common Femoral Vein: 1.1. Compressibility - Fully compressible: Thrombus - None: Flow - Phasic: Augmentation -Normal: Reflux - None. 2. Femoral Vein: 2.1. Compressibility - Fully compressible: Thrombus - None: Flow - Phasic: Augmentation -Normal: Reflux - None. 3. Popliteal Vein: 3.1. Compressibility - Fully compressible: Thrombus - None : Flow - Phasic: Augmentation -Normal: Reflux - None. 4. Posterior Tibial Vein: 4.1. Compressibility - Fully compressible: Thrombus - None: Flow - Phasic: Augmentation -Normal: Reflux - None. 5. Peroneal Vein: 5.1. Compressibility - Fully compressible: Thrombus - None: Flow - Phasic: Augmentation -Normal: Reflux - None. 6. Great Saphenous Vein: 6.1. Compressibility - Fully compressible: Thrombus - None: Flow - Phasic: Augmentation - Normal: Reflux - None. OTHER FINDINGS: Right: None significant. Left: None significant. IMPRESSION: Right: No evidence of deep or superficial vein thrombosis of the right lower extremity. Normal valve function noted of the right side. Left: No evidence of deep or superficial vein thrombosis of the left lower extremity. Normal valve function noted of the left side.
--- NOTE | 2017-12-27 16:27 | CP.PCM.PN ---
Subjective - Date & Time of Evaluation Date of Evaluation: 12/27/17 Time of Evaluation: 06:30 - Subjective Subjective: Patient seen and examined this morning. Packing from abdominal region and gluteal region removed and new packing inserted. Base of both wounds appeared clean and intact. No active purulent drainage or bleeding noted. Patient refused AM labs to be drawn this morning. Spoke to patient extensively about importance of maintaining appropriate glucose levels and wound care. Patient stated that he is aware of the risks that comes with uncontrolled diabetes but stated he was still thinking of leaving against medical advice. Objective - Vital Signs/Intake and Output Vital Signs (last 24 hours): Temp Pulse Resp BP Pulse Ox 98.9 F 74 18 129/76 100 12/27/17 07:00 12/27/17 07:00 12/27/17 07:00 12/27/17 07:00 12/27/17 07:00 Intake and Output: 12/27/17 12/27/17 06:59 18:59 Intake Total 1337 Balance 1337 - Labs Labs: 12/27/17 07:08 12/27/17 07:08 PT 15.1 SECONDS (9.7-12.2) H 12/25/17 07:08 INR 1.4 12/25/17 07:08 APTT 31 SECONDS (21-34) 12/25/17 07:08 - Constitutional Appears: No Acute Distress - Head Exam Head Exam: NORMOCEPHALIC - Eye Exam Eye Exam: EOMI - ENT Exam ENT Exam: Mucous Membranes Moist - Respiratory Exam Respiratory Exam: NORMAL BREATHING PATTERN - Cardiovascular Exam Cardiovascular Exam: +S1, +S2 - GI/Abdominal Exam GI & Abdominal Exam: Soft, Tenderness. absent: Distended, Firm, Guarding, Rigid , Rebound Additional comments: mild tenderness at surgical incision sites No active purulent drainage noted Packing exchanged - Rectal Exam Additional comments: packing changed for gluteal region wound - Neurological Exam Neurological Exam: Alert, Awake, Oriented x3 - Psychiatric Exam Psychiatric exam: Normal Mood - Skin Skin Exam: Dry, Warm Assessment and Plan - Assessment and Plan (Free Text) Assessment: 42yo M s/p 1) Debridement of abdominal wall wound. 2) Incision and drainage of gwen-rectal abscess POD#2 Plan: - F/u AM labs- patient refusing blood to be drawn -Patient threatening to leave against medical advice -Extensive discussion held with patient about the risks of not following medical /surgical advice - C/w ABx as per ID - If WBC continues to increase, recommend repeat CT scan - May resume Plavix and Heparin - C/w warm compresses to hip area - F/u Cultures - Discussed plan with Dr. Carlo West PGY3
--- NOTE | 2017-12-27 18:53 | PN ---
Copied To: Gabby Beckwith MD Attending MD: Gabby Beckwith MD DATE: 12/27/2017 ENDO FOLLOW UP NOTE LOCATION: Room 651. SUBJECTIVE: This is a 42-year-old male with recent uncontrolled type 2 insulin requiring diabetes, now being followed closely for metabolic management. His glycemic levels are still fluctuating as noted thereof. The glucose valves have ranged from 263 to 280 and 313 mg/dL. LABORATORY DATA: His latest chemistry showed a BUN of 11, sodium 140, potassium 3.9, chloride 103, CO2 of 27, glucose 236, and creatinine 0.7. ASSESSMENT AND PLAN: So, at this time, we will modify once again his basal and pre-mix insulin regimen and increase the Novolin 70/30 to 24 units a.c. breakfast and 18 units a.c. dinner to start today. We will increase the basal insulin with NPH given as 12 units subcu at bedtime daily as given. He will follow with his medical doctors or at the clinic downstairs for outpatient medical and diabetic followup. Gabby Beckwith MD
[2017-12-27] MEDS ORDERED: (Novolin N) Insulin Human Isophane (NPH) 100 u/ml 10 ml vial SC SCH (22:00)
--- NOTE | 2017-12-29 18:00 | PCM.OP ---
Operative Report - Operative Report Date of Surgery/Procedure: 12/25/17 Time of Surgery/Procedure: 10:00 Surgeon: Josey Matos MD Brazing Machine Operator: Jackeline Vu DO (PGY 4 resident) Anesthesia/Sedation: General endotracheal; 1% lidocaine with epinephrine+ 0.25% marcarine local Pre-Operative Diagnosis: Abdominal wall asbcess with necrosis. Perirectal abscess. Poorly controlled type II diabetes, HgbA1c 14. CAD s/p IA and cardiac stent x4 Post-Operative Diagnosis: Abdominal wall asbcess with necrosis. Perirectal abscess. perineal sinus tracts and chronic inflammation. Poorly controlled type II diabetes, HgbA1c 14. CAD s/p IA and cardiac stent x4 Indication for Surgery: 42 male poorly controlled diabetes and significant cardiac history on ASA, plavix presented to ED with acute shortness of breath and perirectal pain. Found to have abdominal wall abscess and perirectal abscess on CT scan and elevated WBC. Both his abdominal wound and perirectal abscess were spontaneous draining of purulent fluid and debris. Depsite antibiotic theray his WBC count continued to rise. He had a pre-op echo cardiogram and evaluation by cardiology that cleared him for surgery. Taken to the OR for debridement of abdominal wall wound and I+D of perirectal abscess. Risks and benefits discussed asdoumented in clinical chart. Consent obtained prior to surgery. Plavix was held morning of surgery, ASA was continued. Operative Findings: 4x5cm of abdominal wall necrotic skin and subcutanoues tissue with phlegmonous changes excised. No deep infection or involvement of abdominal wall fascia or evidence of necrotizing infection. 2cm right perirecatal abscess confined to gluteal space, no rectal or deeper involvement. Procedure/Operation Description: PROCEDURE PERFORMED: Debridement of abdominal wall abscess and wound. Incision and drainage (I&D) of perirectal abscess. DETAILS OF OPERATION: Patient was taken to operating room and placed supine on the operating room table. Arms placed in neutral position on arms boards. SCD boots were placed for DVT prophylaxis. Following successful general endotracheal anesthesia, the patients legs were placed on padded foot rests for modified lithotomy position, taking care to pad pressure points and place in neutral position avoiding any undo stretching of the joints. The patient voided in pre-op immediately prior to surgery and no delacruz was placed. Upper body warmer placed. The hair was shaved from around the operative sites. The abdomen was prepped and draped in sterile fashion. The perineum was separately prepped and draped in sterile fashion. A safety strap was then loosely placed across upper abdomen/lower chest. Patient received 1 grams of vancomycin within 30 minutes prior to incision. A time out was performed prior to incision. We started with abdominal wall debridement. Local anesthetic was injected to the skin adjacent to the lower abdominal wound. Area of infected skin and wound was marked out. And elliptical incision was made around the borders of grossly involved skin. 4x5cm area of grossly necrotic skin and and grossly abnormal adipose tissue removed until healthy normal edges using electrocautery dissection. The specimen was sent off to pathology. The wound was then irrigated with Aricept solution follow by saline. It was re-insepcted and hemostasis confirmed. We then packed the wound with plain gauze packing and used two johnie to approximate the mid portion of the wound for easier wound management. 4x4 gauze and ABD pads were placed on top and secured with tape. A Sterile blue towel was placed over the dressing and we then proceed to address the perirectal abscess. The patients legs where raised in lithotomy position to access the abscess area, which was in the right gluteal side. A digital rectal exam was performed and grossly normal without evidence of deeper involvement. Gloves were changes and the abscess was incised with a cruciate incision incorporating the the area that had spontaneously opened and allowed for drainage. The skin edges of the cruciate incision and all necrotic tissue was sharply removed. The cavity was digitally explored and found to have no communication to any deeper structures or to the colorectal area. Small septae were released with hemostat. Hemostasis obtained with electrocautery and confirmed at the end of operation. The cavity was irrigated with saline and then was packed with packing gauze and dressed. Estimated blood loss was minimal. The patient tolerated the procedure well. Extubated in OR and sent to recovery in good condition. I was present for the entirety of the operation. Sponge needle, and instrument counts were correct. Estimated Blood Loss: 10mL Complications: none Discharge & Condition: stable to recovery
== END 2017-12-27 10:27 | disposition left against medical advice (07) | DRG 580 ==
LOC: C.ER 13:59 → C.9E 17:46 → C.6T 21:37
PROVIDERS: ADMIT Hospitalist; ATTEND Hospitalist
PROC: 0WBF0ZZ Excision of Abdominal Wall, Open Approach (ICD-10-PCS; 2017-12-25)
PROC: 0D9P0ZZ Drainage of Rectum, Open Approach (ICD-10-PCS; principal; 2017-12-25 09:30)
DX: L02.211 Cutaneous abscess of abdominal wall (principal); K61.1 Rectal abscess; L02.31 Cutaneous abscess of buttock; D72.829 Elevated white blood cell count, unspecified; E78.5 Hyperlipidemia, unspecified; F17.200 Nicotine dependence, unspecified, uncomplicated; I10 Essential (primary) hypertension; I25.10 Atherosclerotic heart disease of native coronary artery without angina pectoris; Z91.14 Patient's other noncompliance with medication regimen; Z95.5 Presence of coronary angioplasty implant and graft; Z88.0 Allergy status to penicillin; Z79.4 Long term (current) use of insulin; J45.909 Unspecified asthma, uncomplicated; I25.2 Old myocardial infarction; E11.65 Type 2 diabetes mellitus with hyperglycemia; E11.51 Type 2 diabetes mellitus with diabetic peripheral angiopathy without gangrene; E11.42 Type 2 diabetes mellitus with diabetic polyneuropathy

== ENCOUNTER 2017-12-30 17:08 | Emergency (ER) | payer OTHER ==
[2017-12-30 17:09] VITALS: BMI 22.6
--- NOTE | 2017-12-30 17:56 | C.PDOC ---
History Of Present Illness 42 year old male s/p Left abdominal phlegmon I&D presents to ED to check on wound and change packing. PAtient reports, " went to clinic 1st and they send me here for surgery evaluation". As per patient, he was admitted to the hospital last week and left against medical advice. Otherwise, Patient denies fever, chills, abdominal pain, nausea, vomiting, denies increase pain over abd. wound, significant wound discharges, back pain, N?V/D, UTI sx. Ambulate to Ed for evaluation, not in any apparent distress. Time Seen by Provider: 12/30/17 17:20 Chief Complaint (Nursing): Wound Check History Per: Patient History/Exam Limitations: no limitations Onset/Duration Of Symptoms: Days Ago Current Symptoms Are (Timing): Still Present Location Of Injury: Anterior: Abdomen Recent travel outside of the [place]: No Past Medical History Reviewed: Historical Data, Nursing Documentation, Vital Signs Vital Signs: Last Vital Signs Temp 97.9 F 12/30/17 18:00 Pulse 88 12/30/17 18:00 Resp 18 12/30/17 18:00 BP 166/93 H 12/30/17 18:00 Pulse Ox 99 12/30/17 22:32 - Medical History PMH: Asthma, CAD, Diabetes, HTN, Hypercholesterolemia Denies: Chronic Kidney Disease Surgical History: Appendectomy, Coronary Stent (x4) - [facility] Procedures DRAINAGE OF RECTUM, OPEN APPROACH (12/23/17) EXCISION OF ABDOMINAL WALL, OPEN APPROACH (12/23/17) Family History: States: No Known Family Hx - Social History Hx Tobacco Use: Yes Hx Alcohol Use: No Hx Substance Use: No - Immunization History Hx Tetanus Toxoid Vaccination: Yes Hx Influenza Vaccination: No Hx Pneumococcal Vaccination: No Review Of Systems Except As Marked, All Systems Reviewed And Found Negative. Constitutional: Negative for: Fever, Chills Gastrointestinal: Negative for: Nausea, Vomiting, Abdominal Pain Physical Exam - Physical Exam Appears: Well, Non-toxic, No Acute Distress Skin: Normal Color, Warm, No Rash, No Ecchymosis Eye(s): bilateral: PERRL Gastrointestinal/Abdominal: Soft, No Tenderness, No Distention, No Guarding, Other ((+) Left lower abdominal wall open wound with surgical packing noted. clean, dry, intact with scant yellow discharges. NO proximal streaking.) Extremity: Normal ROM, No Deformity, No Swelling Neurological/Psych: Oriented x3, Normal Speech, Normal Motor, Normal Sensation, Normal Reflexes Gait: Steady ED Course And Treatment O2 Sat by Pulse Oximetry: 99 (RA) Pulse Ox Interpretation: Normal Progress Note: [place] was called for consult. Pt was seen by surgical reasident and wound was redressed, and patient was instructed for further follow up with surgical clinic for two weeks. On re-eval, pt is afebrile, hemodynamicaly stable. Non-toxic. Abd: benign, (-) guarding, (-) rebound. Back: (-) CVA tenderness. Pt advised and ref. to f/u with clinic in 2 wks. Pt stable for discharge now. Disposition Counseled Patient/Family Regarding: Diagnosis, Need For Followup - Disposition Referrals: [facility] [Outside] Disposition: HOME/ ROUTINE Disposition Time: 17:53 Condition: STABLE Additional Instructions: FOLLOW UP WITH SURGICAL CLINIC ON 01/13/18 FOR FURTHER RE-EVALUATION OF OPEN WOUND CHANGE DRESSING DAILY RETURN TO ED IF ANY WORSENING OR NEW CHANGES. Instructions: Abscess Incision and Drainage Forms: [employer] (Burmese) - Clinical Impression Clinical Impression: Wound check, abscess - PA / WEB DEVELOPMENT DIRECTOR / Resident Statement MD/DO has reviewed & agrees with the documentation as recorded. - Scribe Statement The provider has reviewed the documentation as recorded by the Scribe Michael Monteiro All medical record entries made by the Guidoibcathy were at my direction and personally dictated by me. I have reviewed the chart and agree that the record accurately reflects my personal performance of the history, physical exam, medical decision making, and the department course for this patient. I have also personally directed, reviewed, and agree with the discharge instructions and disposition.
[2017-12-30 19:05] VITALS: BP 166/93; PULSE 88; RESP 18; TEMP 97.9; O2SAT 99
== END 2017-12-30 18:08 | disposition home or self-care (01) ==
LOC: C.ER 17:08
DX: Z48.00 Encounter for change or removal of nonsurgical wound dressing (principal); E11.9 Type 2 diabetes mellitus without complications; I10 Essential (primary) hypertension; I25.10 Atherosclerotic heart disease of native coronary artery without angina pectoris; E78.00 Pure hypercholesterolemia, unspecified; Z72.0 Tobacco use

== ENCOUNTER 2018-04-17 12:19 | Inpatient (IN) | payer MEDICAID, OTHER ==
[2018-04-17 12:20] VITALS: BMI 22.6
[2018-04-17] MEDS ORDERED: Sodium Chloride 0.9% 1,000 ML IV ONE ×2 (13:55→13:56)
[2018-04-17] MEDS ORDERED: Ciprofloxacin 400mg/200ml D5W 400 MG/200 ML BAG IVPB STA (13:56)
[2018-04-17] MEDS ORDERED: metroNIDAZOLE IV 500 mg/100 ml 500 MG/100 ML BAG IVPB STA (13:57)
--- NOTE | 2018-04-17 14:02 | C.PDOC ---
History Of Present Illness 42 y/o male presents to ED for evaluation of nausea and vomiting since last night. Notes he has pain in his chest due to the vomiting. Patient has history of CAD s/p stent. He also complains of enlarging abscess to left gluteal area, notes he has history of abscesses in the past. He is a poor historian. No other complaints. Time Seen by Provider: 04/17/18 13:49 Chief Complaint (Nursing): Chest Pain History Per: Patient History/Exam Limitations: no limitations Past Medical History Reviewed: Historical Data, Nursing Documentation, Vital Signs Vital Signs: Last Vital Signs Temp 99 F 04/17/18 13:00 Pulse 115 H 04/17/18 13:00 Resp 20 04/17/18 13:00 BP 83/53 L 04/17/18 13:00 Pulse Ox 100 04/17/18 13:00 - Medical History PMH: Asthma, CAD, Diabetes, HTN, Hypercholesterolemia Denies: Chronic Kidney Disease Surgical History: Appendectomy, Coronary Stent (x4) - [facility] Procedures DRAINAGE OF RECTUM, OPEN APPROACH (12/23/17) EXCISION OF ABDOMINAL WALL, OPEN APPROACH (12/23/17) Family History: States: Unknown Family Hx - Social History Hx Tobacco Use: Yes Hx Alcohol Use: Yes Hx Substance Use: No - Immunization History Hx Tetanus Toxoid Vaccination: Yes Hx Influenza Vaccination: Yes (02/2018) Hx Pneumococcal Vaccination: No Review Of Systems Except As Marked, All Systems Reviewed And Found Negative. Constitutional: Negative for: Fever, Chills Cardiovascular: Positive for: Chest Pain. Negative for: Palpitations, Edema, Light Headedness Respiratory: Negative for: Cough, Shortness of Breath Gastrointestinal: Positive for: Nausea, Vomiting. Negative for: Abdominal Pain, Diarrhea, Constipation Genitourinary: Negative for: Dysuria, Frequency, Hematuria, Penile Discharge Musculoskeletal: Negative for: Back Pain Physical Exam - Physical Exam Appears: Non-toxic, No Acute Distress Skin: Warm, Dry, Other (large indurated erythematous area superior to left gluteal region) Head: Atraumatic, Normacephalic Eye(s): bilateral: Normal Inspection Oral Mucosa: Moist Neck: Normal ROM, Supple Chest: Symmetrical Cardiovascular: Rhythm Regular (tachycardic) Respiratory: Normal Breath Sounds, No Rales, No Rhonchi, No Wheezing Gastrointestinal/Abdominal: Soft, No Tenderness Back: No CVA Tenderness Extremity: Normal ROM, No Pedal Edema Neurological/Psych: Oriented x3, Normal Speech ED Course And Treatment - Laboratory Results Result Diagrams: 04/17/18 14:37 04/17/18 14:37 ECG: Interpreted By Me, Viewed By Me ECG Rhythm: Sinus Tachycardia ECG Interpretation: No Acute Changes Rate From EC (bpm) O2 Sat by Pulse Oximetry: 100 (RA) Pulse Ox Interpretation: Normal Medical Decision Making Medical Decision Making: abscess r/o dka., sepsisPlan: Blood work Urinalysis EKG CXR Vancomycin Cipro Flagyl IV fluids labs consistent with dka. ivf initated. code sepeiss carreno.d surgeyr called will drain abscess bedside. insulin iniated. case accpeted by icu and hospitalist. Disposition - Disposition Disposition: HOSPITALIZED Disposition Time: 15:00 Condition: CRITICAL - Clinical Impression Clinical Impression: DKA (diabetic ketoacidoses), Sepsis, Abscess, gluteal - Scribe Statement The provider has reviewed the documentation as recorded by the Scribe KP All medical record entries made by the Scribe were at my direction and personally dictated by me. I have reviewed the chart and agree that the record accurately reflects my personal performance of the history, physical exam, medical decision making, and the department course for this patient. I have also personally directed, reviewed, and agree with the discharge instructions and disposition. Decision To Admit - Pt Status Changed To: Hospital Disposition Of: Inpatient - Admit Certification Admit to Inpatient:: After my assessment, the patient will require hospitalization for at least two midnights. This is because of the severity of symptoms shown, intensity of services needed, and/or the medical risk in this patient being treated as an outpatient. - InPatient: Physician Admission Certification: I certify that this patient requires 2 or more midnights of care for the following reason:: needs icu - . Bed Request Type: ICU Admitting Physician: Halina Schumacher Patient Diagnosis: DKA (diabetic ketoacidoses), Sepsis, Abscess, gluteal
[2018-04-17] MEDS ORDERED: Vancomycin 1 GM 1 GM/250 ML BAG IVPB ONE (14:42)
[2018-04-17] MEDS ORDERED: metroNIDAZOLE IV 500 mg/100 ml 500 MG/100 ML BAG ONE (14:49)
[2018-04-17 14:52] LABS: BASO # 0.1 K/uL (0.0-0.2); BASO % 0.4 % (0.0-2.0); EOS % 0.1 % (0.0-4.0); HEMOGLOBIN 12.7 g/dL (12.0-18.0); LYMPH # 1.3 K/uL (1.0-4.3); LYMPH % 5.2 % (20.0-40.0); MEAN CORPUSCULAR HEMOGLOBIN 28.7 pg (27.0-31.0); MEAN CORPUSCULAR HGB CONC 32.6 g/dL (33.0-37.0); MEAN PLATELET VOLUME 8.1 fL (7.2-11.7); MONO # 2.1 K/uL (0.0-0.8); MONO % 8.6 % (0.0-10.0); NEUT # 20.5 K/uL (1.8-7.0); NEUT % 85.7 % (50.0-75.0); NRBC % 0.1 % (0.0-2.0); PLATELET COUNT 496 K/uL (130-400); RBC 4.41 Mil/uL (4.40-5.90); RED CELL DISTRIBUTION WIDTH 13.8 % (11.5-14.5)
[2018-04-17 14:52] LABS: VENOUS BLOOD GAS BASE EXCESS -17.5 mmol/L (0.0-2.0); VENOUS BLOOD GAS PCO2 30 mmHg (40-60); VENOUS BLOOD GAS PO2 31 mm/Hg (30-55); VENOUS BLOOD PH 7.14 (7.32-7.43)
[2018-04-17 14:59] LABS: INR 1.3; PROTHROMBIN TIME 13.9 SECONDS (9.7-12.2)
--- NOTE | 2018-04-17 14:59 | RAD ---
Date of service: 04/17/2018 PROCEDURE: CHEST RADIOGRAPH, 1 VIEW HISTORY: chest pain COMPARISON: 12/23/2017 FINDINGS: LUNGS: Clear. PLEURA: No pneumothorax or pleural fluid seen. CARDIOVASCULAR: No aortic atherosclerotic calcification present. Normal. OSSEOUS STRUCTURES: No significant abnormalities. VISUALIZED UPPER ABDOMEN: Normal. OTHER FINDINGS: None. IMPRESSION: No active disease.
[2018-04-17 15:05] LABS: URINE BILIRUBIN NEGATIVE (NEGATIVE); URINE BLOOD 1+ (NEGATIVE); URINE CLARITY Clear (Clear); URINE COLOR Yellow (YELLOW); URINE GLUCOSE (UA) 3+ mg/dL (Normal); URINE LEUKOCYTE ESTERASE NEG Leu/uL (Negative); URINE PROTEIN 3+ mg/dL (NEGATIVE); URINE UROBILINOGEN NORMAL mg/dL (0.2-1.0)
[2018-04-17 15:16] LABS: BANDS 4 % (0-2); LYMPHOCYTE 5 % (20-40); MONOCYTE 9 % (0-10); NEUTROPHIL 82 % (50-75); PLATELET ESTIMATE INCREASED (NORMAL); TOTAL CELLS COUNTED 100
[2018-04-17 15:31] LABS: ALB/GLOB RATIO 0.9 (1.0-2.1); ALBUMIN 3.8 g/dL (3.5-5.0); ALT/SGPT 6 U/L (21-72); AST/SGOT 15 U/L (17-59); BLOOD UREA NITROGEN 33 mg/dL (9-20); CALCIUM 9.8 mg/dl (8.6-10.4); GFR NON-AFRICAN AMERICAN 60
[2018-04-17] MEDS ORDERED: Insulin Human Regular 100 UNIT in Sodium Chloride 0.9% 99 ML IV SCH (15:45)
[2018-04-17] MEDS ORDERED: Ciprofloxacin 400mg/200ml D5W 400 MG/200 ML BAG IVPB ONE (16:25)
[2018-04-17] MEDS ORDERED: Lidocaine 1%/Epinephrine 1:100000 30 ml vial IJ ONE (16:46)
--- NOTE | 2018-04-17 17:38 | CP.PCM.CON ---
History of Present Illness - History of Present Illness History of Present Illness: 42M with h/o DM, h/o gluteal abscess prior, h/o asthma, h/o CAD, s/p pci 8 yrs back x4, h/o tobacco abuse, uncontrolled dm glucose in range of 300-400, patient came with c/o left side gluteal pain and swelling for 3-4 days, had huge vo miting yesterday unable to eat and hence came to hospital. Here noticed to be having in labs hyperglycema AG, metabolic acidosis, and left gluteal abscess. Low bp noticed in initial vitals but then it has been stable. He was started on vancmycin, flagyl, and cipro in ER along with ivf and insulin drip. ICU consult requested for early DKA. Surgery consult has been called and decided to to do I&D in ER. PMH as above PSH prior I&D, appendicetocmy, cardiac stents Meds ASA, plavix, atorvastatin, metformin, glipizide, inhalers, metoprolol, ramipril Social smoking 1PPD, denies alcohol or illicit drugs, , lives with Allergies PCN Family history mother with DC in her 40s, DM, HTN; father with asthma old age Review of Systems - Review of Systems All systems: reviewed and no additional remarkable complaints except (HPI) Past Patient History - Infectious Disease Hx of Infectious Diseases: None - Past Medical History & Family History Past Medical History?: Yes - Past Social History Smoking Status: Heavy Smoker > 10 Cigarettes Daily - CARDIAC Hx Hypercholesterolemia: Yes Hx Hypertension: Yes - PULMONARY Hx Asthma: Yes - NEUROLOGICAL Hx Neurological Disorder: No - HEENT Hx HEENT Problems: No - RENAL Hx Chronic Kidney Disease: No - ENDOCRINE/METABOLIC Hx Diabetes Mellitus Type 2: Yes - HEMATOLOGICAL/ONCOLOGICAL Hx Blood Disorders: No - INTEGUMENTARY Hx Dermatological Problems: No - MUSCULOSKELETAL/RHEUMATOLOGICAL Hx Musculoskeletal Disorders: No Hx Falls: No - GASTROINTESTINAL Hx Gastrointestinal Disorders: No - GENITOURINARY/GYNECOLOGICAL Hx Genitourinary Disorders: No - PSYCHIATRIC Hx Substance Use: No - SURGICAL HISTORY Hx Appendectomy: Yes Hx Coronary Stent: Yes (x4) - ANESTHESIA Hx Anesthesia: Yes Hx Anesthesia Reactions: No Meds Allergies/Adverse Reactions: Allergies Allergy/AdvReac Type Severity Reaction Status Date / Time Penicillins Allergy RASH Verified 04/17/18 14:01 - Medications Medications: Current Medications Insulin Human Regular 100 unit (/ Sodium Chloride) 100 mls @ 9.87 mls/hr IV .[id number] [facility] Last Admin: 04/17/18 16:59 Dose: 9.87 mls/hr Physical Exam - Additional Findings Additional findings: * HEENT CHERELLE, dry mucous membranes * Neck supple * Chest clear * CVS Regular, no gallop or rub * PA soft, nt bs present, * Skin dry very low turgor, clinically moderate to sever dry * 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, 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 x3 but tired * Ext no zeke, poor skin turgor, left buttock golf ball size firm swelling with oozing multiple points on the skin indurated, pus was cultured Results - Vital Signs Recent Vital Signs: Last Vital Signs Temp 99 F 04/17/18 13:00 Pulse 110 H 04/17/18 15:09 Resp 16 04/17/18 15:09 BP 138/77 04/17/18 15:09 Pulse Ox 100 04/17/18 15:09 - Labs Result Diagrams: 04/17/18 14:37 04/17/18 14:37 Labs: Laboratory Results - last 24 hr 04/17/18 04/17/18 04/17/18 14:37 14:37 14:37 WBC 24.0 H RBC 4.41 Hgb 12.7 Hct 38.8 MCV 88.0 D MCH 28.7 MCHC 32.6 L RDW 13.8 Plt Count 496 H MPV 8.1 Neut % (Auto) 85.7 H Lymph % (Auto) 5.2 L [place] % (Auto) 8.6 Eos % (Auto) 0.1 Baso % (Auto) 0.4 Neut # (Auto) 20.5 H Lymph # (Auto) 1.3 [place] # (Auto) 2.1 H Eos # (Auto) 0.0 Baso # (Auto) 0.1 Neutrophils % (Manual) 82 H Band Neutrophils % 4 H Lymphocytes % (Manual) 5 L Monocytes % (Manual) 9 Platelet Estimate Increased H RBC Morphology Normal PT INR APTT pO2 VBG pH VBG pCO2 VBG HCO3 VBG Total CO2 VBG O2 Sat (Calc) VBG Base Excess VBG Potassium Glucose Lactate FiO2 Crit Value Called To Crit Value Called By Crit Value Read Back Blood Gas Notified Time Sodium 138 Potassium 5.5 H Chloride 95 L Carbon Dioxide 10 L* D Anion Gap 39 H BUN 33 H Creatinine 1.3 Est GFR ( Amer) > 60 Est GFR (Non-Af Amer) 60 Random Glucose 576 H* D Serum Osmolality 334 H Calcium 9.8 Magnesium 2.2 Total Bilirubin 0.6 AST 15 L ALT 6 L D Alkaline Phosphatase 156 H Troponin I < 0.0120 Total Protein 7.8 Albumin 3.8 Globulin 4.0 H Albumin/Globulin Ratio 0.9 L Venous Blood Potassium Urine Color Urine Clarity Urine pH Ur Specific [place] Urine Protein Urine Glucose (UA) Urine Ketones Urine Blood Urine Nitrate Urine Bilirubin Urine Urobilinogen Ur Leukocyte Esterase Urine WBC (Auto) Urine RBC (Auto) Hyaline Casts B-Hydroxybutyrate 9.47 H 04/17/18 04/17/18 04/17/18 14:37 14:37 14:42 WBC RBC Hgb Hct MCV MCH MCHC RDW Plt Count MPV Neut % (Auto) Lymph % (Auto) [place] % (Auto) Eos % (Auto) Baso % (Auto) Neut # (Auto) Lymph # (Auto) [place] # (Auto) Eos # (Auto) Baso # (Auto) Neutrophils % (Manual) Band Neutrophils % Lymphocytes % (Manual) Monocytes % (Manual) Platelet Estimate RBC Morphology PT 13.9 H INR 1.3 APTT 34 pO2 31 VBG pH 7.14 L* VBG pCO2 30 L VBG HCO3 9.7 VBG Total CO2 11.1 L VBG O2 Sat (Calc) 57.3 VBG Base Excess -17.5 L VBG Potassium 5.1 Glucose 582 H* Lactate 2.5 H FiO2 21.0 Crit Value Called To Tyra rn Crit Value Called By Shara rt Crit Value Read Back Y Blood Gas Notified Time 1450 Sodium 139.0 Potassium Chloride 97.0 L Carbon Dioxide Anion Gap BUN Creatinine Est GFR ( Amer) Est GFR (Non-Af Amer) Random Glucose Serum Osmolality Calcium Magnesium Total Bilirubin AST ALT Alkaline Phosphatase Troponin I Total Protein Albumin Globulin Albumin/Globulin Ratio Venous Blood Potassium 5.1 Urine Color Yellow Urine Clarity Clear Urine pH 5.0 Ur Specific [place] 1.018 Urine Protein 3+ H Urine Glucose (UA) 3+ H Urine Ketones 2+ H Urine Blood 1+ H Urine Nitrate Negative Urine Bilirubin Negative Urine Urobilinogen Normal Ur Leukocyte Esterase Neg Urine WBC (Auto) 1 Urine RBC (Auto) 4 H Hyaline Casts 3-5 H B-Hydroxybutyrate Assessment & Plan - Assessment and Plan (Free Text) Assessment: * Left gluteal absess * Uncontrolled type2 dm * Early DKA * H/o CAD s/p 4 stents 8 yrs back * Tobacco abuse * H/o asthma * PCN allergy Plan: * IVF * Cipro, clinda iv * Insulin drip * Labs * Surgery consult for I&D * GI/DVT prophylaxis * Continue ASA/plavix, statin, beta bessy * Counselled about compliance, dm education. 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
--- NOTE | 2018-04-17 17:49 | CP.PCM.HP ---
<Gopi Shin - Last Filed: 04/17/18 20:12> History of Present Illness - History of Present Illness History of Present Illness: PGY-1 Medicine H&P for Dr. Ruiz CC: nausea and vomiting This is a 42 year old male with PMH of DM, h/o of gluteal abscesses in the past, asthma, CAD with 4 stents approximately 8-9 years ago, NIDDM (uncontrolled) who presents to the ED due to vomiting and nausea since last night, nonbilious nonbloody. Pt reports some esophageal pain secondary to the extensive vomiting and some epigastric discomfort after vomiting. Pt came to the ED because the nausea did not allow him to eat. He also reports worsening abscess to the left buttocks for the past few days, which has been very painful and draining lastnight. He denies fevers, chills, chest pain, sob, diarrhea, hematochezia, melena, dizziness, lightheadedness. However he does endorse feeling fatigued today. In the ED, pt noted to be hyperglycemic with AG of 33, with metabolic acidosis and left gluteal abscess in the ED. Pt noted to be hypotensive 80/50, but responded to NS IVF 1L bolus x 2, and is normotensive on evaluation. He was also given one dose of vancomycin, ciprofloxacin and flagyl. ICU consult requested for DKA. Surgery consulted for abscess, will do I and D at bedside in ED. PMHx: MT 8 years ago with 4 stents, asthma, DM, HTN, HLD PSHx: appendectomy 30 years ago, stents 8 years ago, prior I and D Meds: atorvastatin 80, glipizide 10mg BID, ramipril 5mg daily, metoprolol XL 25 mg, metformin 1000mg PO BID, plavix 75mg PO daily, aspirin 81mg daily, albuterol inhaler twice per month FamHx: mother with MT in her 40s, recent stents at [facility], DM, HTN; father with asthma old age Social Hx: smokes 1ppd x 25 years, denies alcohol and drug use Present on Admission - Present on Admission Any Indicators Present on Admission: No Review of Systems - Review of Systems All systems: reviewed and no additional remarkable complaints except (as per HPI) Past Patient History - Infectious Disease Hx of Infectious Diseases: None - Past Medical History & Family History Past Medical History?: Yes - Past Social History Smoking Status: Heavy Smoker > 10 Cigarettes Daily - CARDIAC Hx Hypercholesterolemia: Yes Hx Hypertension: Yes - PULMONARY Hx Asthma: Yes - NEUROLOGICAL Hx Neurological Disorder: No - HEENT Hx HEENT Problems: No - RENAL Hx Chronic Kidney Disease: No - ENDOCRINE/METABOLIC Hx Diabetes Mellitus Type 2: Yes - HEMATOLOGICAL/ONCOLOGICAL Hx Blood Disorders: No - INTEGUMENTARY Hx Dermatological Problems: No - MUSCULOSKELETAL/RHEUMATOLOGICAL Hx Musculoskeletal Disorders: No Hx Falls: No - GASTROINTESTINAL Hx Gastrointestinal Disorders: No - GENITOURINARY/GYNECOLOGICAL Hx Genitourinary Disorders: No - PSYCHIATRIC Hx Substance Use: No - SURGICAL HISTORY Hx Appendectomy: Yes Hx Coronary Stent: Yes (x4) - ANESTHESIA Hx Anesthesia: Yes Hx Anesthesia Reactions: No Meds Allergies/Adverse Reactions: Allergies Allergy/AdvReac Type Severity Reaction Status Date / Time Penicillins Allergy RASH Verified 04/17/18 14:01 Physical Exam - Constitutional Appears: Non-toxic - Head Exam Head Exam: ATRAUMATIC, NORMAL INSPECTION - Eye Exam Eye Exam: EOMI - ENT Exam ENT Exam: Mucous Membranes Dry - Neck Exam Neck exam: Positive for: Full Rom, Normal Inspection. Negative for: Meningismus - Respiratory Exam Respiratory Exam: Clear to Auscultation Bilateral, NORMAL BREATHING PATTERN. absent: Respiratory Distress - Cardiovascular Exam Cardiovascular Exam: Tachycardia, +S1, +S2. absent: Systolic Murmur - GI/Abdominal Exam GI & Abdominal Exam: Normal Bowel Sounds, Soft. absent: Distended, Firm, Guarding, Rigid, Tenderness - Extremities Exam Extremities exam: Positive for: normal capillary refill, normal inspection. Negative for: calf tenderness, pedal edema - Back Exam Back exam: NORMAL INSPECTION - Neurological Exam Neurological exam: Alert, Oriented x3 - Psychiatric Exam Psychiatric exam: Normal Affect, Normal Mood - Skin Skin Exam: Dry, Intact, Warm Additional comments: ] (+) decreased skin turgor (+) approximately 3.5 cm by 3.5 cm area of redness, induration and warmth to the left buttocks, (+) oozing purulent discharge; TTP Results - Vital Signs Recent Vital Signs: Last Vital Signs Temp 99 F 04/17/18 13:00 Pulse 110 H 04/17/18 15:09 Resp 16 04/17/18 15:09 BP 138/77 04/17/18 15:09 Pulse Ox 100 04/17/18 15:09 - Labs Result Diagrams: 04/17/18 14:37 04/17/18 14:37 Labs: Laboratory Results - last 24 hr 04/17/18 04/17/18 04/17/18 14:37 14:37 14:37 WBC 24.0 H RBC 4.41 Hgb 12.7 Hct 38.8 MCV 88.0 D MCH 28.7 MCHC 32.6 L RDW 13.8 Plt Count 496 H MPV 8.1 Neut % (Auto) 85.7 H Lymph % (Auto) 5.2 L [place] % (Auto) 8.6 Eos % (Auto) 0.1 Baso % (Auto) 0.4 Neut # (Auto) 20.5 H Lymph # (Auto) 1.3 [place] # (Auto) 2.1 H Eos # (Auto) 0.0 Baso # (Auto) 0.1 Neutrophils % (Manual) 82 H Band Neutrophils % 4 H Lymphocytes % (Manual) 5 L Monocytes % (Manual) 9 Platelet Estimate Increased H RBC Morphology Normal PT INR APTT pO2 VBG pH VBG pCO2 VBG HCO3 VBG Total CO2 VBG O2 Sat (Calc) VBG Base Excess VBG Potassium Glucose Lactate FiO2 Crit Value Called To Crit Value Called By Crit Value Read Back Blood Gas Notified Time Sodium 138 Potassium 5.5 H Chloride 95 L Carbon Dioxide 10 L* D Anion Gap 39 H BUN 33 H Creatinine 1.3 Est GFR ( Amer) > 60 Est GFR (Non-Af Amer) 60 Random Glucose 576 H* D Serum Osmolality 334 H Calcium 9.8 Magnesium 2.2 Total Bilirubin 0.6 AST 15 L ALT 6 L D Alkaline Phosphatase 156 H Troponin I < 0.0120 Total Protein 7.8 Albumin 3.8 Globulin 4.0 H Albumin/Globulin Ratio 0.9 L Venous Blood Potassium Urine Color Urine Clarity Urine pH Ur Specific [place] Urine Protein Urine Glucose (UA) Urine Ketones Urine Blood Urine Nitrate Urine Bilirubin Urine Urobilinogen Ur Leukocyte Esterase Urine WBC (Auto) Urine RBC (Auto) Hyaline Casts B-Hydroxybutyrate 9.47 H 04/17/18 04/17/18 04/17/18 14:37 14:37 14:42 WBC RBC Hgb Hct MCV MCH MCHC RDW Plt Count MPV Neut % (Auto) Lymph % (Auto) [place] % (Auto) Eos % (Auto) Baso % (Auto) Neut # (Auto) Lymph # (Auto) [place] # (Auto) Eos # (Auto) Baso # (Auto) Neutrophils % (Manual) Band Neutrophils % Lymphocytes % (Manual) Monocytes % (Manual) Platelet Estimate RBC Morphology PT 13.9 H INR 1.3 APTT 34 pO2 31 VBG pH 7.14 L* VBG pCO2 30 L VBG HCO3 9.7 VBG Total CO2 11.1 L VBG O2 Sat (Calc) 57.3 VBG Base Excess -17.5 L VBG Potassium 5.1 Glucose 582 H* Lactate 2.5 H FiO2 21.0 Crit Value Called To Tyra chávez Crit Value Called By Shara rt Crit Value Read Back Y Blood Gas Notified Time 1450 Sodium 139.0 Potassium Chloride 97.0 L Carbon Dioxide Anion Gap BUN Creatinine Est GFR ( Amer) Est GFR (Non-Af Amer) Random Glucose Serum Osmolality Calcium Magnesium Total Bilirubin AST ALT Alkaline Phosphatase Troponin I Total Protein Albumin Globulin Albumin/Globulin Ratio Venous Blood Potassium 5.1 Urine Color Yellow Urine Clarity Clear Urine pH 5.0 Ur Specific [place] 1.018 Urine Protein 3+ H Urine Glucose (UA) 3+ H Urine Ketones 2+ H Urine Blood 1+ H Urine Nitrate Negative Urine Bilirubin Negative Urine Urobilinogen Normal Ur Leukocyte Esterase Neg Urine WBC (Auto) 1 Urine RBC (Auto) 4 H Hyaline Casts 3-5 H B-Hydroxybutyrate Assessment & Plan - Assessment and Plan (Free Text) Assessment: This is a 42 year old male with PMH of DM, h/o of gluteal abscesses in the past, asthma, CAD with 4 stents approximately 8-9 years ago, NIDDM (uncontrolled) who presents to the ED due to vomiting and nausea since last night, nonbilious nonbloody. Noted to be in DKA, with sepsis (WBC 24, tachycardia) secondary to abscess left buttocks. Fluid responsive. Plan: Diabetic Ketoacidosis AG is 33 on admission, Beta-OH is positive, Glucose is over 500, VBG shows lactate 2.5 and pH 7.14 ICU consulted, will accept patient Received 2L NS IVF Bolus so far LR IVF 1L bolus x2, then repeat BMP to evaluate electrolyte, and AG status Will start Insulin gtt, NPO except meds Zofran 4 mg IVP QH PRN nausea/vomiting F/u CMP in am F/u TSH, free t4 Hyperkalemia 5.5 on admission Pt is overall potassium deficit secondary to DKA No need to give potassium lowering agent at this time Monitor via BMP/CMP Repeat EKG in am, as EKG shows peaked t-waves in ED Sepsis, likely secondary to Left buttocks Abscess Surgery, Dr. Rsoe, consulted Marc, residential lawn specialist, performed bedside I&D with wound culture WBC is 24 Pt received 1 dose of ciprofloxacin, vancomycin and flagyl in ED Will start Ciprofloxacin 400 mg IVPB Q12H, Clindamycin 300 mg IVPB Q6H Pt is no longer hypotensive Repeat CBC in am F/u MRSA screen F/u wound culture F/u blood culture Hx of DM, uncontrolled Diabetic education Endocrinology, Dr. Beckwith, consulted f/u HgbA1c, it was 14+ on last admission in December 2017 Hx of CAD with stents Echo in december 2017 was normal, EF of approximately 74% Continue ASA 81 mg PO daily, Plavix 75 mg PO daily, Metoprolol 25 mg PO BID Hx of HTN Continue Metoprolol XL 25 mg PO BID Hx of HLD Lipid panel in am Crestor 10 mg PO QHs PPX VTE: Heparin 5000 units SQ q8h, SCDs Pepcid 20 mg IVP daily Counselled about compliance, dm education. 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 Will accept pt. Case discussed with attending physician, Dr. Sara Shin PGY-1 <Shanon Ruiz - Last Filed: 04/17/18 21:19> Results - Vital Signs Recent Vital Signs: Last Vital Signs Temp 98.6 F 04/17/18 18:20 Pulse 123 H 04/17/18 18:20 Resp 22 04/17/18 18:20 BP 110/67 04/17/18 18:20 Pulse Ox 100 04/17/18 18:20 - Labs Result Diagrams: 04/17/18 14:37 04/17/18 14:37 Labs: Laboratory Results - last 24 hr 04/17/18 04/17/18 04/17/18 14:37 14:37 14:37 WBC 24.0 H RBC 4.41 Hgb 12.7 Hct 38.8 MCV 88.0 D MCH 28.7 MCHC 32.6 L RDW 13.8 Plt Count 496 H MPV 8.1 Neut % (Auto) 85.7 H Lymph % (Auto) 5.2 L [place] % (Auto) 8.6 Eos % (Auto) 0.1 Baso % (Auto) 0.4 Neut # (Auto) 20.5 H Lymph # (Auto) 1.3 [place] # (Auto) 2.1 H Eos # (Auto) 0.0 Baso # (Auto) 0.1 Neutrophils % (Manual) 82 H Band Neutrophils % 4 H Lymphocytes % (Manual) 5 L Monocytes % (Manual) 9 Platelet Estimate Increased H RBC Morphology Normal PT INR APTT pO2 VBG pH VBG pCO2 VBG HCO3 VBG Total CO2 VBG O2 Sat (Calc) VBG Base Excess VBG Potassium Glucose Lactate FiO2 Crit Value Called To Crit Value Called By Crit Value Read Back Blood Gas Notified Time Sodium 138 Potassium 5.5 H Chloride 95 L Carbon Dioxide 10 L* D Anion Gap 39 H BUN 33 H Creatinine 1.3 Est GFR ( Amer) > 60 Est GFR (Non-Af Amer) 60 Random Glucose 576 H* D Serum Osmolality 334 H Lactic Acid Calcium 9.8 Magnesium 2.2 Total Bilirubin 0.6 AST 15 L ALT 6 L D Alkaline Phosphatase 156 H Troponin I < 0.0120 Total Protein 7.8 Albumin 3.8 Globulin 4.0 H Albumin/Globulin Ratio 0.9 L Venous Blood Potassium Urine Color Urine Clarity Urine pH Ur Specific [place] Urine Protein Urine Glucose (UA) Urine Ketones Urine Blood Urine Nitrate Urine Bilirubin Urine Urobilinogen Ur Leukocyte Esterase Urine WBC (Auto) Urine RBC (Auto) Hyaline Casts B-Hydroxybutyrate 9.47 H 04/17/18 04/17/18 04/17/18 14:37 14:37 14:42 WBC RBC Hgb Hct MCV MCH MCHC RDW Plt Count MPV Neut % (Auto) Lymph % (Auto) [place] % (Auto) Eos % (Auto) Baso % (Auto) Neut # (Auto) Lymph # (Auto) [place] # (Auto) Eos # (Auto) Baso # (Auto) Neutrophils % (Manual) Band Neutrophils % Lymphocytes % (Manual) Monocytes % (Manual) Platelet Estimate RBC Morphology PT 13.9 H INR 1.3 APTT 34 pO2 31 VBG pH 7.14 L* VBG pCO2 30 L VBG HCO3 9.7 VBG Total CO2 11.1 L VBG O2 Sat (Calc) 57.3 VBG Base Excess -17.5 L VBG Potassium 5.1 Glucose 582 H* Lactate 2.5 H FiO2 21.0 Crit Value Called To Tyra rn Crit Value Called By Shara rt Crit Value Read Back Y Blood Gas Notified Time 1450 Sodium 139.0 Potassium Chloride 97.0 L Carbon Dioxide Anion Gap BUN Creatinine Est GFR ( Amer) Est GFR (Non-Af Amer) Random Glucose Serum Osmolality Lactic Acid Calcium Magnesium Total Bilirubin AST ALT Alkaline Phosphatase Troponin I Total Protein Albumin Globulin Albumin/Globulin Ratio Venous Blood Potassium 5.1 Urine Color Yellow Urine Clarity Clear Urine pH 5.0 Ur Specific [place] 1.018 Urine Protein 3+ H Urine Glucose (UA) 3+ H Urine Ketones 2+ H Urine Blood 1+ H Urine Nitrate Negative Urine Bilirubin Negative Urine Urobilinogen Normal Ur Leukocyte Esterase Neg Urine WBC (Auto) 1 Urine RBC (Auto) 4 H Hyaline Casts 3-5 H B-Hydroxybutyrate 04/17/18 19:00 WBC RBC Hgb Hct MCV MCH MCHC RDW Plt Count MPV Neut % (Auto) Lymph % (Auto) [place] % (Auto) Eos % (Auto) Baso % (Auto) Neut # (Auto) Lymph # (Auto) [place] # (Auto) Eos # (Auto) Baso # (Auto) Neutrophils % (Manual) Band Neutrophils % Lymphocytes % (Manual) Monocytes % (Manual) Platelet Estimate RBC Morphology PT INR APTT pO2 VBG pH VBG pCO2 VBG HCO3 VBG Total CO2 VBG O2 Sat (Calc) VBG Base Excess VBG Potassium Glucose Lactate FiO2 Crit Value Called To Crit Value Called By Crit Value Read Back Blood Gas Notified Time Sodium Potassium Chloride Carbon Dioxide Anion Gap BUN Creatinine Est GFR ( Amer) Est GFR (Non-Af Amer) Random Glucose Serum Osmolality Lactic Acid 3.0 H Calcium Magnesium Total Bilirubin AST ALT Alkaline Phosphatase Troponin I Total Protein Albumin Globulin Albumin/Globulin Ratio Venous Blood Potassium Urine Color Urine Clarity Urine pH Ur Specific [place] Urine Protein Urine Glucose (UA) Urine Ketones Urine Blood Urine Nitrate Urine Bilirubin Urine Urobilinogen Ur Leukocyte Esterase Urine WBC (Auto) Urine RBC (Auto) Hyaline Casts B-Hydroxybutyrate Attending/Attestation - Attestation I have personally seen and examined this patient.: Yes I have fully participated in the care of the patient.: Yes I have reviewed all pertinent clinical information: Yes
[2018-04-17] MEDS: Lactated Ringer's 1,000 ML IV SCH ×3 (17:55→20:50)
--- NOTE | 2018-04-17 18:39 | CP.PCM.CON ---
History of Present Illness - History of Present Illness History of Present Illness: General Surgery Consult Note for Dr. Rose CC: Abscess Right Thigh HPI: 42M w. pmh of HTN, hypercholesterolemia, CAD, NC, DM, asthma presents to ED for nausea, vomiting and weakness. He was found to be in DKA. Of note he mentioned that he had an abscess on his right gluteus since last wednesday. He reports that he gets frequent abscesses however they all drain on their own. He deneis any fevers or chills at home. He denies any chest pain or SOB. He reports that the abscess on his buttock is draining however not copiously. He has no new complaints at this time. PMH: see above PSH: appendectomy Meds: MAR reviewed ALL: PCN Social: 1PPD, no ETOH/drugs Fhx: NC/DM-Mother Review of Systems - Review of Systems Review of Systems: 12 point review of symptoms negative except for nausea vomiting and abscesses. Past Patient History - Infectious Disease Hx of Infectious Diseases: None - Past Medical History & Family History Past Medical History?: Yes - Past Social History Smoking Status: Heavy Smoker > 10 Cigarettes Daily - CARDIAC Hx Hypercholesterolemia: Yes Hx Hypertension: Yes - PULMONARY Hx Asthma: Yes - NEUROLOGICAL Hx Neurological Disorder: No - HEENT Hx HEENT Problems: No - RENAL Hx Chronic Kidney Disease: No - ENDOCRINE/METABOLIC Hx Diabetes Mellitus Type 2: Yes - HEMATOLOGICAL/ONCOLOGICAL Hx Blood Disorders: No - INTEGUMENTARY Hx Dermatological Problems: No - MUSCULOSKELETAL/RHEUMATOLOGICAL Hx Musculoskeletal Disorders: No Hx Falls: No - GASTROINTESTINAL Hx Gastrointestinal Disorders: No - GENITOURINARY/GYNECOLOGICAL Hx Genitourinary Disorders: No - PSYCHIATRIC Hx Substance Use: No - SURGICAL HISTORY Hx Appendectomy: Yes Hx Coronary Stent: Yes (x4) - ANESTHESIA Hx Anesthesia: Yes Hx Anesthesia Reactions: No Meds Allergies/Adverse Reactions: Allergies Allergy/AdvReac Type Severity Reaction Status Date / Time Penicillins Allergy RASH Verified 04/17/18 14:01 - Medications Medications: Current Medications Aspirin (Aspirin Chewable) 81 mg PO DAILY [facility] Clopidogrel Bisulfate (Plavix) 75 mg PO DAILY [facility] Famotidine (Pepcid) 20 mg IVP DAILY [facility] Heparin Sodium (Porcine) (Heparin) 5,000 units SC Q8 [facility] Insulin Human Regular 100 unit (/ Sodium Chloride) 100 mls @ 9.87 mls/hr IV .Q10H8M [facility] Last Admin: 04/17/18 16:59 Dose: 9.87 mls/hr Lactated Ringer's (Lactated Ringer's) 1,000 mls @ 1,000 mls/hr IV .Q1H [facility] Stop: 04/17/18 19:14 Last Admin: 04/17/18 17:55 Dose: 1,000 mls/hr Ciprofloxacin (Cipro 400mg/200ml Dsw) 400 mg in 200 mls @ 133 mls/hr IVPB Q12H [facility]; Protocol Clindamycin Phosphate 300 mg/ (Sodium Chloride) 52 mls @ 100 mls/hr IVPB Q6H [facility]; Protocol Metoprolol Succinate (Toprol Xl) 25 mg PO DAILY [facility] Morphine Sulfate (Morphine) 1 mg IVP Q6H PRN PRN Reason: Pain, severe (8-10) Ondansetron HCl (Zofran Inj) 4 mg IVP Q6H PRN PRN Reason: Nausea/Vomiting Last Admin: 04/17/18 16:45 Dose: 4 mg Rosuvastatin Calcium (Crestor) 10 mg PO HS [facility] Physical Exam - Constitutional Appears: Non-toxic, No Acute Distress Additional comments: - Head Exam Head Exam: ATRAUMATIC, NORMOCEPHALIC - Eye Exam Eye Exam: EOMI - ENT Exam ENT Exam: Mucous Membranes Moist - Neck Exam Neck exam: Positive for: Full Rom - Respiratory Exam Respiratory Exam: NORMAL BREATHING PATTERN. absent: Accessory Muscle Use, Respiratory Distress - Cardiovascular Exam Additional comments: regular rate - GI/Abdominal Exam GI & Abdominal Exam: Soft. absent: Distended, Firm, Guarding, Rebound, Rigid - Rectal Exam Rectal Exam: NORMAL INSPECTION Right sided gluetal abscess about 8 cm in diameter with multiple puncta. - Extremities Exam Extremities exam: Negative for: calf tenderness, pedal edema - Neurological Exam Neurological exam: Alert, Oriented x3 Results - Vital Signs Recent Vital Signs: Last Vital Signs Temp 99.1 F 04/17/18 18:00 Pulse 122 H 04/17/18 18:00 Resp 24 04/17/18 18:00 BP 138/64 04/17/18 18:00 Pulse Ox 96 04/17/18 18:00 - Labs Result Diagrams: 04/17/18 14:37 04/17/18 14:37 Labs: Laboratory Results - last 24 hr 04/17/18 04/17/18 04/17/18 14:37 14:37 14:37 WBC 24.0 H RBC 4.41 Hgb 12.7 Hct 38.8 MCV 88.0 D MCH 28.7 MCHC 32.6 L RDW 13.8 Plt Count 496 H MPV 8.1 Neut % (Auto) 85.7 H Lymph % (Auto) 5.2 L [place] % (Auto) 8.6 Eos % (Auto) 0.1 Baso % (Auto) 0.4 Neut # (Auto) 20.5 H Lymph # (Auto) 1.3 [place] # (Auto) 2.1 H Eos # (Auto) 0.0 Baso # (Auto) 0.1 Neutrophils % (Manual) 82 H Band Neutrophils % 4 H Lymphocytes % (Manual) 5 L Monocytes % (Manual) 9 Platelet Estimate Increased H RBC Morphology Normal PT INR APTT pO2 VBG pH VBG pCO2 VBG HCO3 VBG Total CO2 VBG O2 Sat (Calc) VBG Base Excess VBG Potassium Glucose Lactate FiO2 Crit Value Called To Crit Value Called By Crit Value Read Back Blood Gas Notified Time Sodium 138 Potassium 5.5 H Chloride 95 L Carbon Dioxide 10 L* D Anion Gap 39 H BUN 33 H Creatinine 1.3 Est GFR ( Amer) > 60 Est GFR (Non-Af Amer) 60 Random Glucose 576 H* D Serum Osmolality 334 H Calcium 9.8 Magnesium 2.2 Total Bilirubin 0.6 AST 15 L ALT 6 L D Alkaline Phosphatase 156 H Troponin I < 0.0120 Total Protein 7.8 Albumin 3.8 Globulin 4.0 H Albumin/Globulin Ratio 0.9 L Venous Blood Potassium Urine Color Urine Clarity Urine pH Ur Specific [place] Urine Protein Urine Glucose (UA) Urine Ketones Urine Blood Urine Nitrate Urine Bilirubin Urine Urobilinogen Ur Leukocyte Esterase Urine WBC (Auto) Urine RBC (Auto) Hyaline Casts B-Hydroxybutyrate 9.47 H 04/17/18 04/17/18 04/17/18 14:37 14:37 14:42 WBC RBC Hgb Hct MCV MCH MCHC RDW Plt Count MPV Neut % (Auto) Lymph % (Auto) [place] % (Auto) Eos % (Auto) Baso % (Auto) Neut # (Auto) Lymph # (Auto) [place] # (Auto) Eos # (Auto) Baso # (Auto) Neutrophils % (Manual) Band Neutrophils % Lymphocytes % (Manual) Monocytes % (Manual) Platelet Estimate RBC Morphology PT 13.9 H INR 1.3 APTT 34 pO2 31 VBG pH 7.14 L* VBG pCO2 30 L VBG HCO3 9.7 VBG Total CO2 11.1 L VBG O2 Sat (Calc) 57.3 VBG Base Excess -17.5 L VBG Potassium 5.1 Glucose 582 H* Lactate 2.5 H FiO2 21.0 Crit Value Called To Tyra rn Crit Value Called By Shara rt Crit Value Read Back Y Blood Gas Notified Time 1450 Sodium 139.0 Potassium Chloride 97.0 L Carbon Dioxide Anion Gap BUN Creatinine Est GFR ( Amer) Est GFR (Non-Af Amer) Random Glucose Serum Osmolality Calcium Magnesium Total Bilirubin AST ALT Alkaline Phosphatase Troponin I Total Protein Albumin Globulin Albumin/Globulin Ratio Venous Blood Potassium 5.1 Urine Color Yellow Urine Clarity Clear Urine pH 5.0 Ur Specific [place] 1.018 Urine Protein 3+ H Urine Glucose (UA) 3+ H Urine Ketones 2+ H Urine Blood 1+ H Urine Nitrate Negative Urine Bilirubin Negative Urine Urobilinogen Normal Ur Leukocyte Esterase Neg Urine WBC (Auto) 1 Urine RBC (Auto) 4 H Hyaline Casts 3-5 H B-Hydroxybutyrate Assessment & Plan - Assessment and Plan (Free Text) Assessment: 42M with DKA possibly secodnary to soft tissue infection Recommend ICU care and treamtent of DKA f/u wound cultures bedside I&D D/W Dr. Milton Jackson PGY3 Procedures - Time-Out Type of Procedure: Inscision and drainage of gluteal abscess Site of Procedure: Right gluteal Correct Patient: Yes Correct Procedure: Yes Correct Site Marked: Yes Physician Name: Dr. Jackson - Incision and Drainage Site: Right Gluteal Blade Size: 11 I & D Procedure: betadine prep, sterile drapes applied, sterile dressing applied
[2018-04-17] MEDS: Insulin Human Regular 100 UNIT in Sodium Chloride 0.9% 99 ML IV SCH (20:40)
[2018-04-18] MEDS: Lactated Ringer's 1,000 ML IV SCH ×5 (01:31→22:24)
[2018-04-18 02:34] LABS: BLOOD UREA NITROGEN 34 mg/dL (9-20); GFR NON-AFRICAN AMERICAN > 60
[2018-04-18] MEDS: Clindamycin 300 MG in Sodium Chloride 0.9% 50 ML IVPB SCH ×3 (05:29→18:25)
[2018-04-18] MEDS: Insulin Human Regular 100 UNIT in Sodium Chloride 0.9% 99 ML IV SCH (06:20)
--- NOTE | 2018-04-18 07:24 | CP.CCUPN ---
CCU Subjective - Physician Review Subjective (Free Text): 04/18/18 08:37 Patient seen and examined at bedside. Patient complains of nausea but denies vomiting. Critical Care Time Spent (in minutes): 35 CCU Objective - Vital Signs / Intake & Output Vital Signs (Last 4 hours): Vital Signs Pulse Resp BP Pulse Ox 04/18/18 07:10 107 H 11 L 100 04/18/18 07:00 102 H 17 99 04/18/18 06:50 104 H 16 98 04/18/18 06:40 101 H 16 98 04/18/18 06:35 104 H 18 111/55 L 98 04/18/18 06:30 105 H 18 98 04/18/18 06:20 107 H 16 98 04/18/18 06:10 105 H 17 99 04/18/18 06:00 103 H 14 98 04/18/18 05:50 102 H 13 98 04/18/18 05:40 98 H 15 99 04/18/18 05:34 100 H 23 136/80 99 04/18/18 05:30 100 H 18 97 04/18/18 05:20 101 H 18 97 04/18/18 05:10 102 H 16 98 04/18/18 05:00 101 H 16 100 04/18/18 04:50 102 H 14 100 04/18/18 04:40 103 H 15 98 04/18/18 04:35 105 H 18 131/85 100 04/18/18 04:30 104 H 16 99 04/18/18 04:20 105 H 15 98 04/18/18 04:10 109 H 17 99 04/18/18 04:00 112 H 11 L 99 04/18/18 03:50 108 H 11 L 99 04/18/18 03:40 104 H 17 99 04/18/18 03:34 105 H 14 142/82 98 04/18/18 03:30 105 H 16 98 Intake and Output (Last 8hrs): Intake & Output 04/17/18 04/18/18 04/18/18 22:59 06:59 14:59 Intake Total 478.8 1476 202 Output Total 700 0 Balance 478.8 776 202 Weight 145 lb Intake: IV 54 9 Intake, IV Amount 424.8 1467 202 Left Forearm 0 0 Right Forearm 24.8 17 2 Right Proximal Port 400 1450 200 Forearm Output: Urine 700 Urine, Voided 700 Stool 0 0 Other: Voiding Method Urinal # Voids Urine, Voided 1 - Physical Exam Head: Positive for: Atraumatic, Normocephalic Pupils: Positive for: PERRL Extroacular Muscles: Positive for: EOMI Conjunctiva: Positive for: Normal Mouth: Positive for: Dry Respiratory/Chest: Positive for: Clear to Auscultation. Negative for: Respiratory Distress, Accessory Muscle Use, Wheezes, Rales, Rhonchi Cardiovascular: Positive for: Normal S1, S2, Tachycardic. Negative for: Murmurs, Rub, Gallop Abdomen: Positive for: Normal Bowel Sounds. Negative for: Tenderness, Distention, Peritoneal Signs, Guarding Upper Extremity: Positive for: Normal Inspection Lower Extremity: Positive for: Normal Inspection. Negative for: Edema, CALF TENDERNESS Neurological: Positive for: GCS=15 Skin: Positive for: Warm, Dry, Normal Color, Abscess (6 cm x 5 cm area of erythema and induration over the left superior gluteal area, central area of necrosis with purulent fluid expressible, no crepitus over the area) Psychiatric: Positive for: Alert, Oriented x 3, Lethargic - Medications Active Medications: Active Medications Generic Name Dose Route Start Last Admin Trade Name Freq PRN Reason Stop Dose Admin Aspirin 81 mg 04/18/18 10:00 Aspirin Chewable PO DAILY [facility] Clopidogrel Bisulfate 75 mg 04/18/18 10:00 Plavix PO DAILY [facility] Famotidine 20 mg 04/18/18 10:00 Pepcid IVP DAILY [facility] Heparin Sodium (Porcine) 5,000 units 04/17/18 22:00 04/18/18 05:28 Heparin SC 5,000 units Q8 [facility] Administration Ciprofloxacin 400 mg in 200 mls @ 133 mls/hr 04/18/18 09:00 Cipro 400mg/200ml Dsw IVPB Q12H [facility] Protocol Clindamycin Phosphate 300 mg/ 52 mls @ 100 mls/hr 04/18/18 06:00 04/18/18 05:29 Sodium Chloride IVPB 100 mls/hr Q6H [facility] Administration Protocol Insulin Human Regular 100 unit 100 mls @ 9.87 mls/hr 04/17/18 20:35 04/18/18 06:20 / Sodium Chloride IV Not Given .Q10H8M [facility] Protocol 0.15 UNIT/KG/HR Lactated Ringer's 1,000 mls @ 200 mls/hr 04/17/18 20:45 04/18/18 06:16 Lactated Ringer's IV Not Given .Q5H [facility] Metoprolol Succinate 25 mg 04/18/18 10:00 Toprol Xl PO DAILY [facility] Morphine Sulfate 1 mg 04/17/18 17:05 Morphine IVP Q6H PRN Pain, severe (8-10) Ondansetron HCl 4 mg 04/17/18 17:05 04/17/18 16:45 Zofran Inj IVP 4 mg Q6H PRN Administration Nausea/Vomiting Rosuvastatin Calcium 10 mg 04/17/18 22:00 04/17/18 21:41 Crestor PO 10 mg HS [facility]UE Administration - Patient Studies Lab Studies: Microbiology Studies 04/17/18 18:06 Gram Stain - Final Abscess - Buttock-Left Lab Studies 04/18/18 04/18/18 04/18/18 Range/Units 04:59 03:51 03:06 WBC (4.8-10.8) K/uL RBC (4.40-5.90) Mil/uL Hgb (12.0-18.0) g/dL Hct (35.0-51.0) % MCV (80.0-94.0) fL MCH (27.0-31.0) pg MCHC (33.0-37.0) g/dL RDW (11.5-14.5) % Plt Count (130-400) K/uL MPV (7.2-11.7) fL Neut % (Auto) (50.0-75.0) % Lymph % (Auto) (20.0-40.0) % [place] % (Auto) (0.0-10.0) % Eos % (Auto) (0.0-4.0) % Baso % (Auto) (0.0-2.0) % Neut # (Auto) (1.8-7.0) K/uL Lymph # (Auto) (1.0-4.3) K/uL [place] # (Auto) (0.0-0.8) K/uL Eos # (Auto) (0.0-0.7) K/uL Baso # (Auto) (0.0-0.2) K/uL Neutrophils % (Manual) (50-75) % Band Neutrophils % (0-2) % Lymphocytes % (Manual) (20-40) % Monocytes % (Manual) (0-10) % Platelet Estimate (NORMAL) RBC Morphology PT (9.7-12.2) SECONDS INR APTT (21-34) SECONDS pO2 (30-55) mm/Hg VBG pH (7.32-7.43) VBG pCO2 (40-60) mmHg VBG HCO3 mmol/L VBG Total CO2 (22-28) mmol/L VBG O2 Sat (Calc) (40-65) % VBG Base Excess (0.0-2.0) mmol/L VBG Potassium (3.6-5.2) mmol/L Glucose (75-110) mg/dl Lactate (0.7-2.1) mmol/L FiO2 % Crit Value Called To Crit Value Called By Crit Value Read Back Blood Gas Notified Time Sodium (132-148) mmol/L Potassium (3.6-5.2) mmol/L Chloride (98-107) mmol/L Carbon Dioxide (22-30) mmol/L Anion Gap (10-20) BUN (9-20) mg/dL Creatinine (0.8-1.5) mg/dL Est GFR ( Amer) Est GFR (Non-Af Amer) POC Glucose (mg/dL) 168 H 153 H 165 H (65-110) mg/dL Random Glucose (75-110) mg/dL Hemoglobin A1c (4.2-6.5) % Serum Osmolality (272-300) mosm/kg Lactic Acid (0.7-2.1) mmol/L Calcium (8.6-10.4) mg/dl Phosphorus (2.5-4.5) mg/dL Magnesium (1.6-2.3) mg/dL Total Bilirubin (0.2-1.3) mg/dL AST (17-59) U/L ALT (21-72) U/L Alkaline Phosphatase (38-126) U/L Troponin I (0.00-0.120) ng/mL Total Protein (6.3-8.3) g/dL Albumin (3.5-5.0) g/dL Globulin (2.2-3.9) gm/dL Albumin/Globulin Ratio (1.0-2.1) Free T4 (0.78-2.19) ng/dL TSH 3rd Generation (0.46-4.68) mIU/L Venous Blood Potassium (3.6-5.2) mmol/L Urine Color (YELLOW) Urine Clarity (Clear) Urine pH (5.0-8.0) Ur Specific [place] (1.003-1.030) Urine Protein (NEGATIVE) mg/dL Urine Glucose (UA) (Normal) mg/dL Urine Ketones (NEGATIVE) mg/dL Urine Blood (NEGATIVE) Urine Nitrate (NEGATIVE) Urine Bilirubin (NEGATIVE) Urine Urobilinogen (0.2-1.0) mg/dL Ur Leukocyte Esterase (Negative) Fei/uL Urine WBC (Auto) (0-5) /hpf Urine RBC (Auto) (0-3) /hpf Hyaline Casts (0-2) /lpf B-Hydroxybutyrate (0.02-0.27) mM 04/18/18 04/18/18 04/18/18 Range/Units 02:18 02:09 00:58 WBC (4.8-10.8) K/uL RBC (4.40-5.90) Mil/uL Hgb (12.0-18.0) g/dL Hct (35.0-51.0) % MCV (80.0-94.0) fL MCH (27.0-31.0) pg MCHC (33.0-37.0) g/dL RDW (11.5-14.5) % Plt Count (130-400) K/uL MPV (7.2-11.7) fL Neut % (Auto) (50.0-75.0) % Lymph % (Auto) (20.0-40.0) % [place] % (Auto) (0.0-10.0) % Eos % (Auto) (0.0-4.0) % Baso % (Auto) (0.0-2.0) % Neut # (Auto) (1.8-7.0) K/uL Lymph # (Auto) (1.0-4.3) K/uL [place] # (Auto) (0.0-0.8) K/uL Eos # (Auto) (0.0-0.7) K/uL Baso # (Auto) (0.0-0.2) K/uL Neutrophils % (Manual) (50-75) % Band Neutrophils % (0-2) % Lymphocytes % (Manual) (20-40) % Monocytes % (Manual) (0-10) % Platelet Estimate (NORMAL) RBC Morphology PT (9.7-12.2) SECONDS INR APTT (21-34) SECONDS pO2 (30-55) mm/Hg VBG pH (7.32-7.43) VBG pCO2 (40-60) mmHg VBG HCO3 mmol/L VBG Total CO2 (22-28) mmol/L VBG O2 Sat (Calc) (40-65) % VBG Base Excess (0.0-2.0) mmol/L VBG Potassium (3.6-5.2) mmol/L Glucose (75-110) mg/dl Lactate (0.7-2.1) mmol/L FiO2 % Crit Value Called To Crit Value Called By Crit Value Read Back Blood Gas Notified Time Sodium 140 (132-148) mmol/L Potassium 4.1 (3.6-5.2) mmol/L Chloride 107 (98-107) mmol/L Carbon Dioxide 19 L (22-30) mmol/L Anion Gap 18 (10-20) BUN 34 H (9-20) mg/dL Creatinine 1.0 (0.8-1.5) mg/dL Est GFR ( Amer) > 60 Est GFR (Non-Af Amer) > 60 POC Glucose (mg/dL) 153 H 160 H (65-110) mg/dL Random Glucose 270 H (75-110) mg/dL Hemoglobin A1c (4.2-6.5) % Serum Osmolality (272-300) mosm/kg Lactic Acid (0.7-2.1) mmol/L Calcium 9.0 (8.6-10.4) mg/dl Phosphorus (2.5-4.5) mg/dL Magnesium (1.6-2.3) mg/dL Total Bilirubin (0.2-1.3) mg/dL AST (17-59) U/L ALT (21-72) U/L Alkaline Phosphatase (38-126) U/L Troponin I (0.00-0.120) ng/mL Total Protein (6.3-8.3) g/dL Albumin (3.5-5.0) g/dL Globulin (2.2-3.9) gm/dL Albumin/Globulin Ratio (1.0-2.1) Free T4 (0.78-2.19) ng/dL TSH 3rd Generation (0.46-4.68) mIU/L Venous Blood Potassium (3.6-5.2) mmol/L Urine Color (YELLOW) Urine Clarity (Clear) Urine pH (5.0-8.0) Ur Specific [place] (1.003-1.030) Urine Protein (NEGATIVE) mg/dL Urine Glucose (UA) (Normal) mg/dL Urine Ketones (NEGATIVE) mg/dL Urine Blood (NEGATIVE) Urine Nitrate (NEGATIVE) Urine Bilirubin (NEGATIVE) Urine Urobilinogen (0.2-1.0) mg/dL Ur Leukocyte Esterase (Negative) Fei/uL Urine WBC (Auto) (0-5) /hpf Urine RBC (Auto) (0-3) /hpf Hyaline Casts (0-2) /lpf B-Hydroxybutyrate (0.02-0.27) mM 04/17/18 04/17/18 04/17/18 Range/Units 23:57 23:00 22:04 WBC (4.8-10.8) K/uL RBC (4.40-5.90) Mil/uL Hgb (12.0-18.0) g/dL Hct (35.0-51.0) % MCV (80.0-94.0) fL MCH (27.0-31.0) pg MCHC (33.0-37.0) g/dL RDW (11.5-14.5) % Plt Count (130-400) K/uL MPV (7.2-11.7) fL Neut % (Auto) (50.0-75.0) % Lymph % (Auto) (20.0-40.0) % [place] % (Auto) (0.0-10.0) % Eos % (Auto) (0.0-4.0) % Baso % (Auto) (0.0-2.0) % Neut # (Auto) (1.8-7.0) K/uL Lymph # (Auto) (1.0-4.3) K/uL [place] # (Auto) (0.0-0.8) K/uL Eos # (Auto) (0.0-0.7) K/uL Baso # (Auto) (0.0-0.2) K/uL Neutrophils % (Manual) (50-75) % Band Neutrophils % (0-2) % Lymphocytes % (Manual) (20-40) % Monocytes % (Manual) (0-10) % Platelet Estimate (NORMAL) RBC Morphology PT (9.7-12.2) SECONDS INR APTT (21-34) SECONDS pO2 (30-55) mm/Hg VBG pH (7.32-7.43) VBG pCO2 (40-60) mmHg VBG HCO3 mmol/L VBG Total CO2 (22-28) mmol/L VBG O2 Sat (Calc) (40-65) % VBG Base Excess (0.0-2.0) mmol/L VBG Potassium (3.6-5.2) mmol/L Glucose (75-110) mg/dl Lactate (0.7-2.1) mmol/L FiO2 % Crit Value Called To Crit Value Called By Crit Value Read Back Blood Gas Notified Time Sodium (132-148) mmol/L Potassium (3.6-5.2) mmol/L Chloride (98-107) mmol/L Carbon Dioxide (22-30) mmol/L Anion Gap (10-20) BUN (9-20) mg/dL Creatinine (0.8-1.5) mg/dL Est GFR ( Amer) Est GFR (Non-Af Amer) POC Glucose (mg/dL) 174 H 225 H 259 H (65-110) mg/dL Random Glucose (75-110) mg/dL Hemoglobin A1c (4.2-6.5) % Serum Osmolality (272-300) mosm/kg Lactic Acid (0.7-2.1) mmol/L Calcium (8.6-10.4) mg/dl Phosphorus (2.5-4.5) mg/dL Magnesium (1.6-2.3) mg/dL Total Bilirubin (0.2-1.3) mg/dL AST (17-59) U/L ALT (21-72) U/L Alkaline Phosphatase (38-126) U/L Troponin I (0.00-0.120) ng/mL Total Protein (6.3-8.3) g/dL Albumin (3.5-5.0) g/dL Globulin (2.2-3.9) gm/dL Albumin/Globulin Ratio (1.0-2.1) Free T4 (0.78-2.19) ng/dL TSH 3rd Generation (0.46-4.68) mIU/L Venous Blood Potassium (3.6-5.2) mmol/L Urine Color (YELLOW) Urine Clarity (Clear) Urine pH (5.0-8.0) Ur Specific [place] (1.003-1.030) Urine Protein (NEGATIVE) mg/dL Urine Glucose (UA) (Normal) mg/dL Urine Ketones (NEGATIVE) mg/dL Urine Blood (NEGATIVE) Urine Nitrate (NEGATIVE) Urine Bilirubin (NEGATIVE) Urine Urobilinogen (0.2-1.0) mg/dL Ur Leukocyte Esterase (Negative) Fei/uL Urine WBC (Auto) (0-5) /hpf Urine RBC (Auto) (0-3) /hpf Hyaline Casts (0-2) /lpf B-Hydroxybutyrate (0.02-0.27) mM 04/17/18 04/17/18 04/17/18 Range/Units 21:39 21:39 21:39 WBC (4.8-10.8) K/uL RBC (4.40-5.90) Mil/uL Hgb (12.0-18.0) g/dL Hct (35.0-51.0) % MCV (80.0-94.0) fL MCH (27.0-31.0) pg MCHC (33.0-37.0) g/dL RDW (11.5-14.5) % Plt Count (130-400) K/uL MPV (7.2-11.7) fL Neut % (Auto) (50.0-75.0) % Lymph % (Auto) (20.0-40.0) % [place] % (Auto) (0.0-10.0) % Eos % (Auto) (0.0-4.0) % Baso % (Auto) (0.0-2.0) % Neut # (Auto) (1.8-7.0) K/uL Lymph # (Auto) (1.0-4.3) K/uL [place] # (Auto) (0.0-0.8) K/uL Eos # (Auto) (0.0-0.7) K/uL Baso # (Auto) (0.0-0.2) K/uL Neutrophils % (Manual) (50-75) % Band Neutrophils % (0-2) % Lymphocytes % (Manual) (20-40) % Monocytes % (Manual) (0-10) % Platelet Estimate (NORMAL) RBC Morphology PT (9.7-12.2) SECONDS INR APTT (21-34) SECONDS pO2 (30-55) mm/Hg VBG pH (7.32-7.43) VBG pCO2 (40-60) mmHg VBG HCO3 mmol/L VBG Total CO2 (22-28) mmol/L VBG O2 Sat (Calc) (40-65) % VBG Base Excess (0.0-2.0) mmol/L VBG Potassium (3.6-5.2) mmol/L Glucose (75-110) mg/dl Lactate (0.7-2.1) mmol/L FiO2 % Crit Value Called To Crit Value Called By Crit Value Read Back Blood Gas Notified Time Sodium (132-148) mmol/L Potassium (3.6-5.2) mmol/L Chloride (98-107) mmol/L Carbon Dioxide (22-30) mmol/L Anion Gap (10-20) BUN (9-20) mg/dL Creatinine (0.8-1.5) mg/dL Est GFR ( Amer) Est GFR (Non-Af Amer) POC Glucose (mg/dL) (65-110) mg/dL Random Glucose (75-110) mg/dL Hemoglobin A1c (4.2-6.5) % Serum Osmolality (272-300) mosm/kg Lactic Acid (0.7-2.1) mmol/L Calcium (8.6-10.4) mg/dl Phosphorus 2.9 (2.5-4.5) mg/dL Magnesium 2.0 (1.6-2.3) mg/dL Total Bilirubin (0.2-1.3) mg/dL AST (17-59) U/L ALT (21-72) U/L Alkaline Phosphatase (38-126) U/L Troponin I (0.00-0.120) ng/mL Total Protein (6.3-8.3) g/dL Albumin (3.5-5.0) g/dL Globulin (2.2-3.9) gm/dL Albumin/Globulin Ratio (1.0-2.1) Free T4 1.43 (0.78-2.19) ng/dL TSH 3rd Generation 1.89 (0.46-4.68) mIU/L Venous Blood Potassium (3.6-5.2) mmol/L Urine Color (YELLOW) Urine Clarity (Clear) Urine pH (5.0-8.0) Ur Specific [place] (1.003-1.030) Urine Protein (NEGATIVE) mg/dL Urine Glucose (UA) (Normal) mg/dL Urine Ketones (NEGATIVE) mg/dL Urine Blood (NEGATIVE) Urine Nitrate (NEGATIVE) Urine Bilirubin (NEGATIVE) Urine Urobilinogen (0.2-1.0) mg/dL Ur Leukocyte Esterase (Negative) Fei/uL Urine WBC (Auto) (0-5) /hpf Urine RBC (Auto) (0-3) /hpf Hyaline Casts (0-2) /lpf B-Hydroxybutyrate (0.02-0.27) mM 04/17/18 04/17/18 04/17/18 Range/Units 21:39 21:00 20:01 WBC (4.8-10.8) K/uL RBC (4.40-5.90) Mil/uL Hgb (12.0-18.0) g/dL Hct (35.0-51.0) % MCV (80.0-94.0) fL MCH (27.0-31.0) pg MCHC (33.0-37.0) g/dL RDW (11.5-14.5) % Plt Count (130-400) K/uL MPV (7.2-11.7) fL Neut % (Auto) (50.0-75.0) % Lymph % (Auto) (20.0-40.0) % [place] % (Auto) (0.0-10.0) % Eos % (Auto) (0.0-4.0) % Baso % (Auto) (0.0-2.0) % Neut # (Auto) (1.8-7.0) K/uL Lymph # (Auto) (1.0-4.3) K/uL [place] # (Auto) (0.0-0.8) K/uL Eos # (Auto) (0.0-0.7) K/uL Baso # (Auto) (0.0-0.2) K/uL Neutrophils % (Manual) (50-75) % Band Neutrophils % (0-2) % Lymphocytes % (Manual) (20-40) % Monocytes % (Manual) (0-10) % Platelet Estimate (NORMAL) RBC Morphology PT (9.7-12.2) SECONDS INR APTT (21-34) SECONDS pO2 (30-55) mm/Hg VBG pH (7.32-7.43) VBG pCO2 (40-60) mmHg VBG HCO3 mmol/L VBG Total CO2 (22-28) mmol/L VBG O2 Sat (Calc) (40-65) % VBG Base Excess (0.0-2.0) mmol/L VBG Potassium (3.6-5.2) mmol/L Glucose (75-110) mg/dl Lactate (0.7-2.1) mmol/L FiO2 % Crit Value Called To Crit Value Called By Crit Value Read Back Blood Gas Notified Time Sodium (132-148) mmol/L Potassium (3.6-5.2) mmol/L Chloride (98-107) mmol/L Carbon Dioxide (22-30) mmol/L Anion Gap (10-20) BUN (9-20) mg/dL Creatinine (0.8-1.5) mg/dL Est GFR ( Amer) Est GFR (Non-Af Amer) POC Glucose (mg/dL) 312 H 370 H (65-110) mg/dL Random Glucose (75-110) mg/dL Hemoglobin A1c 15.0 H (4.2-6.5) % Serum Osmolality (272-300) mosm/kg Lactic Acid (0.7-2.1) mmol/L Calcium (8.6-10.4) mg/dl Phosphorus (2.5-4.5) mg/dL Magnesium (1.6-2.3) mg/dL Total Bilirubin (0.2-1.3) mg/dL AST (17-59) U/L ALT (21-72) U/L Alkaline Phosphatase (38-126) U/L Troponin I (0.00-0.120) ng/mL Total Protein (6.3-8.3) g/dL Albumin (3.5-5.0) g/dL Globulin (2.2-3.9) gm/dL Albumin/Globulin Ratio (1.0-2.1) Free T4 (0.78-2.19) ng/dL TSH 3rd Generation (0.46-4.68) mIU/L Venous Blood Potassium (3.6-5.2) mmol/L Urine Color (YELLOW) Urine Clarity (Clear) Urine pH (5.0-8.0) Ur Specific [place] (1.003-1.030) Urine Protein (NEGATIVE) mg/dL Urine Glucose (UA) (Normal) mg/dL Urine Ketones (NEGATIVE) mg/dL Urine Blood (NEGATIVE) Urine Nitrate (NEGATIVE) Urine Bilirubin (NEGATIVE) Urine Urobilinogen (0.2-1.0) mg/dL Ur Leukocyte Esterase (Negative) Fei/uL Urine WBC (Auto) (0-5) /hpf Urine RBC (Auto) (0-3) /hpf Hyaline Casts (0-2) /lpf B-Hydroxybutyrate (0.02-0.27) mM 04/17/18 04/17/18 04/17/18 Range/Units 19:00 18:38 18:02 WBC (4.8-10.8) K/uL RBC (4.40-5.90) Mil/uL Hgb (12.0-18.0) g/dL Hct (35.0-51.0) % MCV (80.0-94.0) fL MCH (27.0-31.0) pg MCHC (33.0-37.0) g/dL RDW (11.5-14.5) % Plt Count (130-400) K/uL MPV (7.2-11.7) fL Neut % (Auto) (50.0-75.0) % Lymph % (Auto) (20.0-40.0) % [place] % (Auto) (0.0-10.0) % Eos % (Auto) (0.0-4.0) % Baso % (Auto) (0.0-2.0) % Neut # (Auto) (1.8-7.0) K/uL Lymph # (Auto) (1.0-4.3) K/uL [place] # (Auto) (0.0-0.8) K/uL Eos # (Auto) (0.0-0.7) K/uL Baso # (Auto) (0.0-0.2) K/uL Neutrophils % (Manual) (50-75) % Band Neutrophils % (0-2) % Lymphocytes % (Manual) (20-40) % Monocytes % (Manual) (0-10) % Platelet Estimate (NORMAL) RBC Morphology PT (9.7-12.2) SECONDS INR APTT (21-34) SECONDS pO2 (30-55) mm/Hg VBG pH (7.32-7.43) VBG pCO2 (40-60) mmHg VBG HCO3 mmol/L VBG Total CO2 (22-28) mmol/L VBG O2 Sat (Calc) (40-65) % VBG Base Excess (0.0-2.0) mmol/L VBG Potassium (3.6-5.2) mmol/L Glucose (75-110) mg/dl Lactate (0.7-2.1) mmol/L FiO2 % Crit Value Called To Crit Value Called By Crit Value Read Back Blood Gas Notified Time Sodium (132-148) mmol/L Potassium (3.6-5.2) mmol/L Chloride (98-107) mmol/L Carbon Dioxide (22-30) mmol/L Anion Gap (10-20) BUN (9-20) mg/dL Creatinine (0.8-1.5) mg/dL Est GFR ( Amer) Est GFR (Non-Af Amer) POC Glucose (mg/dL) 461 H* 406 H* (65-110) mg/dL Random Glucose (75-110) mg/dL Hemoglobin A1c (4.2-6.5) % Serum Osmolality (272-300) mosm/kg Lactic Acid 3.0 H (0.7-2.1) mmol/L Calcium (8.6-10.4) mg/dl Phosphorus (2.5-4.5) mg/dL Magnesium (1.6-2.3) mg/dL Total Bilirubin (0.2-1.3) mg/dL AST (17-59) U/L ALT (21-72) U/L Alkaline Phosphatase (38-126) U/L Troponin I (0.00-0.120) ng/mL Total Protein (6.3-8.3) g/dL Albumin (3.5-5.0) g/dL Globulin (2.2-3.9) gm/dL Albumin/Globulin Ratio (1.0-2.1) Free T4 (0.78-2.19) ng/dL TSH 3rd Generation (0.46-4.68) mIU/L Venous Blood Potassium (3.6-5.2) mmol/L Urine Color (YELLOW) Urine Clarity (Clear) Urine pH (5.0-8.0) Ur Specific [place] (1.003-1.030) Urine Protein (NEGATIVE) mg/dL Urine Glucose (UA) (Normal) mg/dL Urine Ketones (NEGATIVE) mg/dL Urine Blood (NEGATIVE) Urine Nitrate (NEGATIVE) Urine Bilirubin (NEGATIVE) Urine Urobilinogen (0.2-1.0) mg/dL Ur Leukocyte Esterase (Negative) Fei/uL Urine WBC (Auto) (0-5) /hpf Urine RBC (Auto) (0-3) /hpf Hyaline Casts (0-2) /lpf B-Hydroxybutyrate (0.02-0.27) mM 04/17/18 04/17/18 04/17/18 Range/Units 14:42 14:37 14:37 WBC (4.8-10.8) K/uL RBC (4.40-5.90) Mil/uL Hgb (12.0-18.0) g/dL Hct (35.0-51.0) % MCV (80.0-94.0) fL MCH (27.0-31.0) pg MCHC (33.0-37.0) g/dL RDW (11.5-14.5) % Plt Count (130-400) K/uL MPV (7.2-11.7) fL Neut % (Auto) (50.0-75.0) % Lymph % (Auto) (20.0-40.0) % [place] % (Auto) (0.0-10.0) % Eos % (Auto) (0.0-4.0) % Baso % (Auto) (0.0-2.0) % Neut # (Auto) (1.8-7.0) K/uL Lymph # (Auto) (1.0-4.3) K/uL [place] # (Auto) (0.0-0.8) K/uL Eos # (Auto) (0.0-0.7) K/uL Baso # (Auto) (0.0-0.2) K/uL Neutrophils % (Manual) (50-75) % Band Neutrophils % (0-2) % Lymphocytes % (Manual) (20-40) % Monocytes % (Manual) (0-10) % Platelet Estimate (NORMAL) RBC Morphology PT 13.9 H (9.7-12.2) SECONDS INR 1.3 APTT 34 (21-34) SECONDS pO2 31 (30-55) mm/Hg VBG pH 7.14 L* (7.32-7.43) VBG pCO2 30 L (40-60) mmHg VBG HCO3 9.7 mmol/L VBG Total CO2 11.1 L (22-28) mmol/L VBG O2 Sat (Calc) 57.3 (40-65) % VBG Base Excess -17.5 L (0.0-2.0) mmol/L VBG Potassium 5.1 (3.6-5.2) mmol/L Glucose 582 H* (75-110) mg/dl Lactate 2.5 H (0.7-2.1) mmol/L FiO2 21.0 % Crit Value Called To Tyra chávez Crit Value Called By Shara rt Crit Value Read Back Y Blood Gas Notified Time 1450 Sodium 139.0 (132-148) mmol/L Potassium (3.6-5.2) mmol/L Chloride 97.0 L (98-107) mmol/L Carbon Dioxide (22-30) mmol/L Anion Gap (10-20) BUN (9-20) mg/dL Creatinine (0.8-1.5) mg/dL Est GFR ( Amer) Est GFR (Non-Af Amer) POC Glucose (mg/dL) (65-110) mg/dL Random Glucose (75-110) mg/dL Hemoglobin A1c (4.2-6.5) % Serum Osmolality (272-300) mosm/kg Lactic Acid (0.7-2.1) mmol/L Calcium (8.6-10.4) mg/dl Phosphorus (2.5-4.5) mg/dL Magnesium (1.6-2.3) mg/dL Total Bilirubin (0.2-1.3) mg/dL AST (17-59) U/L ALT (21-72) U/L Alkaline Phosphatase (38-126) U/L Troponin I (0.00-0.120) ng/mL Total Protein (6.3-8.3) g/dL Albumin (3.5-5.0) g/dL Globulin (2.2-3.9) gm/dL Albumin/Globulin Ratio (1.0-2.1) Free T4 (0.78-2.19) ng/dL TSH 3rd Generation (0.46-4.68) mIU/L Venous Blood Potassium 5.1 (3.6-5.2) mmol/L Urine Color Yellow (YELLOW) Urine Clarity Clear (Clear) Urine pH 5.0 (5.0-8.0) Ur Specific [place] 1.018 (1.003-1.030) Urine Protein 3+ H (NEGATIVE) mg/dL Urine Glucose (UA) 3+ H (Normal) mg/dL Urine Ketones 2+ H (NEGATIVE) mg/dL Urine Blood 1+ H (NEGATIVE) Urine Nitrate Negative (NEGATIVE) Urine Bilirubin Negative (NEGATIVE) Urine Urobilinogen Normal (0.2-1.0) mg/dL Ur Leukocyte Esterase Neg (Negative) Fei/uL Urine WBC (Auto) 1 (0-5) /hpf Urine RBC (Auto) 4 H (0-3) /hpf Hyaline Casts 3-5 H (0-2) /lpf B-Hydroxybutyrate (0.02-0.27) mM 04/17/18 04/17/18 04/17/18 Range/Units 14:37 14:37 14:37 WBC 24.0 H (4.8-10.8) K/uL RBC 4.41 (4.40-5.90) Mil/uL Hgb 12.7 (12.0-18.0) g/dL Hct 38.8 (35.0-51.0) % MCV 88.0 D (80.0-94.0) fL MCH 28.7 (27.0-31.0) pg MCHC 32.6 L (33.0-37.0) g/dL RDW 13.8 (11.5-14.5) % Plt Count 496 H (130-400) K/uL MPV 8.1 (7.2-11.7) fL Neut % (Auto) 85.7 H (50.0-75.0) % Lymph % (Auto) 5.2 L (20.0-40.0) % [place] % (Auto) 8.6 (0.0-10.0) % Eos % (Auto) 0.1 (0.0-4.0) % Baso % (Auto) 0.4 (0.0-2.0) % Neut # (Auto) 20.5 H (1.8-7.0) K/uL Lymph # (Auto) 1.3 (1.0-4.3) K/uL [place] # (Auto) 2.1 H (0.0-0.8) K/uL Eos # (Auto) 0.0 (0.0-0.7) K/uL Baso # (Auto) 0.1 (0.0-0.2) K/uL Neutrophils % (Manual) 82 H (50-75) % Band Neutrophils % 4 H (0-2) % Lymphocytes % (Manual) 5 L (20-40) % Monocytes % (Manual) 9 (0-10) % Platelet Estimate Increased H (NORMAL) RBC Morphology Normal PT (9.7-12.2) SECONDS INR APTT (21-34) SECONDS pO2 (30-55) mm/Hg VBG pH (7.32-7.43) VBG pCO2 (40-60) mmHg VBG HCO3 mmol/L VBG Total CO2 (22-28) mmol/L VBG O2 Sat (Calc) (40-65) % VBG Base Excess (0.0-2.0) mmol/L VBG Potassium (3.6-5.2) mmol/L Glucose (75-110) mg/dl Lactate (0.7-2.1) mmol/L FiO2 % Crit Value Called To Crit Value Called By Crit Value Read Back Blood Gas Notified Time Sodium 138 (132-148) mmol/L Potassium 5.5 H (3.6-5.2) mmol/L Chloride 95 L (98-107) mmol/L Carbon Dioxide 10 L* D (22-30) mmol/L Anion Gap 39 H (10-20) BUN 33 H (9-20) mg/dL Creatinine 1.3 (0.8-1.5) mg/dL Est GFR ( Amer) > 60 Est GFR (Non-Af Amer) 60 POC Glucose (mg/dL) (65-110) mg/dL Random Glucose 576 H* D (75-110) mg/dL Hemoglobin A1c (4.2-6.5) % Serum Osmolality 334 H (272-300) mosm/kg Lactic Acid (0.7-2.1) mmol/L Calcium 9.8 (8.6-10.4) mg/dl Phosphorus (2.5-4.5) mg/dL Magnesium 2.2 (1.6-2.3) mg/dL Total Bilirubin 0.6 (0.2-1.3) mg/dL AST 15 L (17-59) U/L ALT 6 L D (21-72) U/L Alkaline Phosphatase 156 H (38-126) U/L Troponin I < 0.0120 (0.00-0.120) ng/mL Total Protein 7.8 (6.3-8.3) g/dL Albumin 3.8 (3.5-5.0) g/dL Globulin 4.0 H (2.2-3.9) gm/dL Albumin/Globulin Ratio 0.9 L (1.0-2.1) Free T4 (0.78-2.19) ng/dL TSH 3rd Generation (0.46-4.68) mIU/L Venous Blood Potassium (3.6-5.2) mmol/L Urine Color (YELLOW) Urine Clarity (Clear) Urine pH (5.0-8.0) Ur Specific [place] (1.003-1.030) Urine Protein (NEGATIVE) mg/dL Urine Glucose (UA) (Normal) mg/dL Urine Ketones (NEGATIVE) mg/dL Urine Blood (NEGATIVE) Urine Nitrate (NEGATIVE) Urine Bilirubin (NEGATIVE) Urine Urobilinogen (0.2-1.0) mg/dL Ur Leukocyte Esterase (Negative) Fei/uL Urine WBC (Auto) (0-5) /hpf Urine RBC (Auto) (0-3) /hpf Hyaline Casts (0-2) /lpf B-Hydroxybutyrate 9.47 H (0.02-0.27) mM 04/17/18 Range/Units 14:17 WBC (4.8-10.8) K/uL RBC (4.40-5.90) Mil/uL Hgb (12.0-18.0) g/dL Hct (35.0-51.0) % MCV (80.0-94.0) fL MCH (27.0-31.0) pg MCHC (33.0-37.0) g/dL RDW (11.5-14.5) % Plt Count (130-400) K/uL MPV (7.2-11.7) fL Neut % (Auto) (50.0-75.0) % Lymph % (Auto) (20.0-40.0) % [place] % (Auto) (0.0-10.0) % Eos % (Auto) (0.0-4.0) % Baso % (Auto) (0.0-2.0) % Neut # (Auto) (1.8-7.0) K/uL Lymph # (Auto) (1.0-4.3) K/uL [place] # (Auto) (0.0-0.8) K/uL Eos # (Auto) (0.0-0.7) K/uL Baso # (Auto) (0.0-0.2) K/uL Neutrophils % (Manual) (50-75) % Band Neutrophils % (0-2) % Lymphocytes % (Manual) (20-40) % Monocytes % (Manual) (0-10) % Platelet Estimate (NORMAL) RBC Morphology PT (9.7-12.2) SECONDS INR APTT (21-34) SECONDS pO2 (30-55) mm/Hg VBG pH (7.32-7.43) VBG pCO2 (40-60) mmHg VBG HCO3 mmol/L VBG Total CO2 (22-28) mmol/L VBG O2 Sat (Calc) (40-65) % VBG Base Excess (0.0-2.0) mmol/L VBG Potassium (3.6-5.2) mmol/L Glucose (75-110) mg/dl Lactate (0.7-2.1) mmol/L FiO2 % Crit Value Called To Crit Value Called By Crit Value Read Back Blood Gas Notified Time Sodium (132-148) mmol/L Potassium (3.6-5.2) mmol/L Chloride (98-107) mmol/L Carbon Dioxide (22-30) mmol/L Anion Gap (10-20) BUN (9-20) mg/dL Creatinine (0.8-1.5) mg/dL Est GFR ( Amer) Est GFR (Non-Af Amer) POC Glucose (mg/dL) 427 H* (65-110) mg/dL Random Glucose (75-110) mg/dL Hemoglobin A1c (4.2-6.5) % Serum Osmolality (272-300) mosm/kg Lactic Acid (0.7-2.1) mmol/L Calcium (8.6-10.4) mg/dl Phosphorus (2.5-4.5) mg/dL Magnesium (1.6-2.3) mg/dL Total Bilirubin (0.2-1.3) mg/dL AST (17-59) U/L ALT (21-72) U/L Alkaline Phosphatase (38-126) U/L Troponin I (0.00-0.120) ng/mL Total Protein (6.3-8.3) g/dL Albumin (3.5-5.0) g/dL Globulin (2.2-3.9) gm/dL Albumin/Globulin Ratio (1.0-2.1) Free T4 (0.78-2.19) ng/dL TSH 3rd Generation (0.46-4.68) mIU/L Venous Blood Potassium (3.6-5.2) mmol/L Urine Color (YELLOW) Urine Clarity (Clear) Urine pH (5.0-8.0) Ur Specific [place] (1.003-1.030) Urine Protein (NEGATIVE) mg/dL Urine Glucose (UA) (Normal) mg/dL Urine Ketones (NEGATIVE) mg/dL Urine Blood (NEGATIVE) Urine Nitrate (NEGATIVE) Urine Bilirubin (NEGATIVE) Urine Urobilinogen (0.2-1.0) mg/dL Ur Leukocyte Esterase (Negative) Fei/uL Urine WBC (Auto) (0-5) /hpf Urine RBC (Auto) (0-3) /hpf Hyaline Casts (0-2) /lpf B-Hydroxybutyrate (0.02-0.27) mM Laboratory Results - last 24 hr 04/17/18 04/17/18 04/17/18 14:17 14:37 14:37 WBC RBC Hgb Hct MCV MCH MCHC RDW Plt Count MPV Neut % (Auto) Lymph % (Auto) [place] % (Auto) Eos % (Auto) Baso % (Auto) Neut # (Auto) Lymph # (Auto) [place] # (Auto) Eos # (Auto) Baso # (Auto) Neutrophils % (Manual) Band Neutrophils % Lymphocytes % (Manual) Monocytes % (Manual) Platelet Estimate RBC Morphology PT INR APTT pO2 VBG pH VBG pCO2 VBG HCO3 VBG Total CO2 VBG O2 Sat (Calc) VBG Base Excess VBG Potassium Glucose Lactate FiO2 Crit Value Called To Crit Value Called By Crit Value Read Back Blood Gas Notified Time Sodium 138 Potassium 5.5 H Chloride 95 L Carbon Dioxide 10 L* D Anion Gap 39 H BUN 33 H Creatinine 1.3 Est GFR ( Amer) > 60 Est GFR (Non-Af Amer) 60 POC Glucose (mg/dL) 427 H* Random Glucose 576 H* D Hemoglobin A1c Serum Osmolality 334 H Lactic Acid Calcium 9.8 Phosphorus Magnesium 2.2 Total Bilirubin 0.6 AST 15 L ALT 6 L D Alkaline Phosphatase 156 H Troponin I < 0.0120 Total Protein 7.8 Albumin 3.8 Globulin 4.0 H Albumin/Globulin Ratio 0.9 L Free T4 TSH 3rd Generation Venous Blood Potassium Urine Color Urine Clarity Urine pH Ur Specific [place] Urine Protein Urine Glucose (UA) Urine Ketones Urine Blood Urine Nitrate Urine Bilirubin Urine Urobilinogen Ur Leukocyte Esterase Urine WBC (Auto) Urine RBC (Auto) Hyaline Casts B-Hydroxybutyrate 9.47 H 04/17/18 04/17/18 04/17/18 14:37 14:37 14:37 WBC 24.0 H RBC 4.41 Hgb 12.7 Hct 38.8 MCV 88.0 D MCH 28.7 MCHC 32.6 L RDW 13.8 Plt Count 496 H MPV 8.1 Neut % (Auto) 85.7 H Lymph % (Auto) 5.2 L [place] % (Auto) 8.6 Eos % (Auto) 0.1 Baso % (Auto) 0.4 Neut # (Auto) 20.5 H Lymph # (Auto) 1.3 Norman # (Auto) 2.1 H Eos # (Auto) 0.0 Baso # (Auto) 0.1 Neutrophils % (Manual) 82 H Band Neutrophils % 4 H Lymphocytes % (Manual) 5 L Monocytes % (Manual) 9 Platelet Estimate Increased H RBC Morphology Normal PT 13.9 H INR 1.3 APTT 34 pO2 VBG pH VBG pCO2 VBG HCO3 VBG Total CO2 VBG O2 Sat (Calc) VBG Base Excess VBG Potassium Glucose Lactate FiO2 Crit Value Called To Crit Value Called By Crit Value Read Back Blood Gas Notified Time Sodium Potassium Chloride Carbon Dioxide Anion Gap BUN Creatinine Est GFR ( Amer) Est GFR (Non-Af Amer) POC Glucose (mg/dL) Random Glucose Hemoglobin A1c Serum Osmolality Lactic Acid Calcium Phosphorus Magnesium Total Bilirubin AST ALT Alkaline Phosphatase Troponin I Total Protein Albumin Globulin Albumin/Globulin Ratio Free T4 TSH 3rd Generation Venous Blood Potassium Urine Color Yellow Urine Clarity Clear Urine pH 5.0 Ur Specific [place] 1.018 Urine Protein 3+ H Urine Glucose (UA) 3+ H Urine Ketones 2+ H Urine Blood 1+ H Urine Nitrate Negative Urine Bilirubin Negative Urine Urobilinogen Normal Ur Leukocyte Esterase Neg Urine WBC (Auto) 1 Urine RBC (Auto) 4 H Hyaline Casts 3-5 H B-Hydroxybutyrate 04/17/18 04/17/18 04/17/18 14:42 18:02 18:38 WBC RBC Hgb Hct MCV MCH MCHC RDW Plt Count MPV Neut % (Auto) Lymph % (Auto) [place] % (Auto) Eos % (Auto) Baso % (Auto) Neut # (Auto) Lymph # (Auto) [place] # (Auto) Eos # (Auto) Baso # (Auto) Neutrophils % (Manual) Band Neutrophils % Lymphocytes % (Manual) Monocytes % (Manual) Platelet Estimate RBC Morphology PT INR APTT pO2 31 VBG pH 7.14 L* VBG pCO2 30 L VBG HCO3 9.7 VBG Total CO2 11.1 L VBG O2 Sat (Calc) 57.3 VBG Base Excess -17.5 L VBG Potassium 5.1 Glucose 582 H* Lactate 2.5 H FiO2 21.0 Crit Value Called To Tyra rn Crit Value Called By Shara rt Crit Value Read Back Y Blood Gas Notified Time 1450 Sodium 139.0 Potassium Chloride 97.0 L Carbon Dioxide Anion Gap BUN Creatinine Est GFR ( Amer) Est GFR (Non-Af Amer) POC Glucose (mg/dL) 406 H* 461 H* Random Glucose Hemoglobin A1c Serum Osmolality Lactic Acid Calcium Phosphorus Magnesium Total Bilirubin AST ALT Alkaline Phosphatase Troponin I Total Protein Albumin Globulin Albumin/Globulin Ratio Free T4 TSH 3rd Generation Venous Blood Potassium 5.1 Urine Color Urine Clarity Urine pH Ur Specific [place] Urine Protein Urine Glucose (UA) Urine Ketones Urine Blood Urine Nitrate Urine Bilirubin Urine Urobilinogen Ur Leukocyte Esterase Urine WBC (Auto) Urine RBC (Auto) Hyaline Casts B-Hydroxybutyrate 04/17/18 04/17/18 04/17/18 19:00 20:01 21:00 WBC RBC Hgb Hct MCV MCH MCHC RDW Plt Count MPV Neut % (Auto) Lymph % (Auto) [place] % (Auto) Eos % (Auto) Baso % (Auto) Neut # (Auto) Lymph # (Auto) [place] # (Auto) Eos # (Auto) Baso # (Auto) Neutrophils % (Manual) Band Neutrophils % Lymphocytes % (Manual) Monocytes % (Manual) Platelet Estimate RBC Morphology PT INR APTT pO2 VBG pH VBG pCO2 VBG HCO3 VBG Total CO2 VBG O2 Sat (Calc) VBG Base Excess VBG Potassium Glucose Lactate FiO2 Crit Value Called To Crit Value Called By Crit Value Read Back Blood Gas Notified Time Sodium Potassium Chloride Carbon Dioxide Anion Gap BUN Creatinine Est GFR ( Amer) Est GFR (Non-Af Amer) POC Glucose (mg/dL) 370 H 312 H Random Glucose Hemoglobin A1c Serum Osmolality Lactic Acid 3.0 H Calcium Phosphorus Magnesium Total Bilirubin AST ALT Alkaline Phosphatase Troponin I Total Protein Albumin Globulin Albumin/Globulin Ratio Free T4 TSH 3rd Generation Venous Blood Potassium Urine Color Urine Clarity Urine pH Ur Specific [place] Urine Protein Urine Glucose (UA) Urine Ketones Urine Blood Urine Nitrate Urine Bilirubin Urine Urobilinogen Ur Leukocyte Esterase Urine WBC (Auto) Urine RBC (Auto) Hyaline Casts B-Hydroxybutyrate 04/17/18 04/17/18 04/17/18 21:39 21:39 21:39 WBC RBC Hgb Hct MCV MCH MCHC RDW Plt Count MPV Neut % (Auto) Lymph % (Auto) [place] % (Auto) Eos % (Auto) Baso % (Auto) Neut # (Auto) Lymph # (Auto) [place] # (Auto) Eos # (Auto) Baso # (Auto) Neutrophils % (Manual) Band Neutrophils % Lymphocytes % (Manual) Monocytes % (Manual) Platelet Estimate RBC Morphology PT INR APTT pO2 VBG pH VBG pCO2 VBG HCO3 VBG Total CO2 VBG O2 Sat (Calc) VBG Base Excess VBG Potassium Glucose Lactate FiO2 Crit Value Called To Crit Value Called By Crit Value Read Back Blood Gas Notified Time Sodium Potassium Chloride Carbon Dioxide Anion Gap BUN Creatinine Est GFR ( Amer) Est GFR (Non-Af Amer) POC Glucose (mg/dL) Random Glucose Hemoglobin A1c 15.0 H Serum Osmolality Lactic Acid Calcium Phosphorus Magnesium Total Bilirubin AST ALT Alkaline Phosphatase Troponin I Total Protein Albumin Globulin Albumin/Globulin Ratio Free T4 1.43 TSH 3rd Generation 1.89 Venous Blood Potassium Urine Color Urine Clarity Urine pH Ur Specific [place] Urine Protein Urine Glucose (UA) Urine Ketones Urine Blood Urine Nitrate Urine Bilirubin Urine Urobilinogen Ur Leukocyte Esterase Urine WBC (Auto) Urine RBC (Auto) Hyaline Casts B-Hydroxybutyrate 04/17/18 04/17/18 04/17/18 21:39 22:04 23:00 WBC RBC Hgb Hct MCV MCH MCHC RDW Plt Count MPV Neut % (Auto) Lymph % (Auto) [place] % (Auto) Eos % (Auto) Baso % (Auto) Neut # (Auto) Lymph # (Auto) [place] # (Auto) Eos # (Auto) Baso # (Auto) Neutrophils % (Manual) Band Neutrophils % Lymphocytes % (Manual) Monocytes % (Manual) Platelet Estimate RBC Morphology PT INR APTT pO2 VBG pH VBG pCO2 VBG HCO3 VBG Total CO2 VBG O2 Sat (Calc) VBG Base Excess VBG Potassium Glucose Lactate FiO2 Crit Value Called To Crit Value Called By Crit Value Read Back Blood Gas Notified Time Sodium Potassium Chloride Carbon Dioxide Anion Gap BUN Creatinine Est GFR ( Amer) Est GFR (Non-Af Amer) POC Glucose (mg/dL) 259 H 225 H Random Glucose Hemoglobin A1c Serum Osmolality Lactic Acid Calcium Phosphorus 2.9 Magnesium 2.0 Total Bilirubin AST ALT Alkaline Phosphatase Troponin I Total Protein Albumin Globulin Albumin/Globulin Ratio Free T4 TSH 3rd Generation Venous Blood Potassium Urine Color Urine Clarity Urine pH Ur Specific [place] Urine Protein Urine Glucose (UA) Urine Ketones Urine Blood Urine Nitrate Urine Bilirubin Urine Urobilinogen Ur Leukocyte Esterase Urine WBC (Auto) Urine RBC (Auto) Hyaline Casts B-Hydroxybutyrate 04/17/18 04/18/18 04/18/18 23:57 00:58 02:09 WBC RBC Hgb Hct MCV MCH MCHC RDW Plt Count MPV Neut % (Auto) Lymph % (Auto) [place] % (Auto) Eos % (Auto) Baso % (Auto) Neut # (Auto) Lymph # (Auto) [place] # (Auto) Eos # (Auto) Baso # (Auto) Neutrophils % (Manual) Band Neutrophils % Lymphocytes % (Manual) Monocytes % (Manual) Platelet Estimate RBC Morphology PT INR APTT pO2 VBG pH VBG pCO2 VBG HCO3 VBG Total CO2 VBG O2 Sat (Calc) VBG Base Excess VBG Potassium Glucose Lactate FiO2 Crit Value Called To Crit Value Called By Crit Value Read Back Blood Gas Notified Time Sodium 140 Potassium 4.1 Chloride 107 Carbon Dioxide 19 L Anion Gap 18 BUN 34 H Creatinine 1.0 Est GFR ( Amer) > 60 Est GFR (Non-Af Amer) > 60 POC Glucose (mg/dL) 174 H 160 H Random Glucose 270 H Hemoglobin A1c Serum Osmolality Lactic Acid Calcium 9.0 Phosphorus Magnesium Total Bilirubin AST ALT Alkaline Phosphatase Troponin I Total Protein Albumin Globulin Albumin/Globulin Ratio Free T4 TSH 3rd Generation Venous Blood Potassium Urine Color Urine Clarity Urine pH Ur Specific [place] Urine Protein Urine Glucose (UA) Urine Ketones Urine Blood Urine Nitrate Urine Bilirubin Urine Urobilinogen Ur Leukocyte Esterase Urine WBC (Auto) Urine RBC (Auto) Hyaline Casts B-Hydroxybutyrate 04/18/18 04/18/18 04/18/18 02:18 03:06 03:51 WBC RBC Hgb Hct MCV MCH MCHC RDW Plt Count MPV Neut % (Auto) Lymph % (Auto) [place] % (Auto) Eos % (Auto) Baso % (Auto) Neut # (Auto) Lymph # (Auto) [place] # (Auto) Eos # (Auto) Baso # (Auto) Neutrophils % (Manual) Band Neutrophils % Lymphocytes % (Manual) Monocytes % (Manual) Platelet Estimate RBC Morphology PT INR APTT pO2 VBG pH VBG pCO2 VBG HCO3 VBG Total CO2 VBG O2 Sat (Calc) VBG Base Excess VBG Potassium Glucose Lactate FiO2 Crit Value Called To Crit Value Called By Crit Value Read Back Blood Gas Notified Time Sodium Potassium Chloride Carbon Dioxide Anion Gap BUN Creatinine Est GFR ( Amer) Est GFR (Non-Af Amer) POC Glucose (mg/dL) 153 H 165 H 153 H Random Glucose Hemoglobin A1c Serum Osmolality Lactic Acid Calcium Phosphorus Magnesium Total Bilirubin AST ALT Alkaline Phosphatase Troponin I Total Protein Albumin Globulin Albumin/Globulin Ratio Free T4 TSH 3rd Generation Venous Blood Potassium Urine Color Urine Clarity Urine pH Ur Specific [place] Urine Protein Urine Glucose (UA) Urine Ketones Urine Blood Urine Nitrate Urine Bilirubin Urine Urobilinogen Ur Leukocyte Esterase Urine WBC (Auto) Urine RBC (Auto) Hyaline Casts B-Hydroxybutyrate 04/18/18 04:59 WBC RBC Hgb Hct MCV MCH MCHC RDW Plt Count MPV Neut % (Auto) Lymph % (Auto) [place] % (Auto) Eos % (Auto) Baso % (Auto) Neut # (Auto) Lymph # (Auto) [place] # (Auto) Eos # (Auto) Baso # (Auto) Neutrophils % (Manual) Band Neutrophils % Lymphocytes % (Manual) Monocytes % (Manual) Platelet Estimate RBC Morphology PT INR APTT pO2 VBG pH VBG pCO2 VBG HCO3 VBG Total CO2 VBG O2 Sat (Calc) VBG Base Excess VBG Potassium Glucose Lactate FiO2 Crit Value Called To Crit Value Called By Crit Value Read Back Blood Gas Notified Time Sodium Potassium Chloride Carbon Dioxide Anion Gap BUN Creatinine Est GFR ( Amer) Est GFR (Non-Af Amer) POC Glucose (mg/dL) 168 H Random Glucose Hemoglobin A1c Serum Osmolality Lactic Acid Calcium Phosphorus Magnesium Total Bilirubin AST ALT Alkaline Phosphatase Troponin I Total Protein Albumin Globulin Albumin/Globulin Ratio Free T4 TSH 3rd Generation Venous Blood Potassium Urine Color Urine Clarity Urine pH Ur Specific [place] Urine Protein Urine Glucose (UA) Urine Ketones Urine Blood Urine Nitrate Urine Bilirubin Urine Urobilinogen Ur Leukocyte Esterase Urine WBC (Auto) Urine RBC (Auto) Hyaline Casts B-Hydroxybutyrate EKG/Cardiology Studies: Cardiology / EKG Studies 04/17/18 12:59 EKG [ELECTROCARDIOGRAM] Stat Comment: Mode Of Transportation: BED Reason For Exam: cp 04/17/18 13:55 ELECTROCARDIOGRAM Stat Comment: Mode Of Transportation: BED Reason For Exam: chest pain 04/18/18 06:00 EKG [ELECTROCARDIOGRAM] DAILY Comment: Mode Of Transportation: Reason For Exam: follow up Fingerstick Blood Sugar Results: 406 Critical Care Progress Note - Nutrition Nutrition: Nutrition Category Date Time Status NPO Diet [DIET] Diets 04/17/18 Breakfast Active Assessment/Plan - Assessment and Plan (Free Text) Assessment: Patient is a 42 year old male with PMHx of asthma, CAD s/p 4 stents, and uncontrolled diabetes admitted to ICU for DKA and left gluteal abscess Plan: Neuro: - Patient is AAO X 3 Pulm: - No acute issues Cardiovascular: Hx of CAD s/p 4 stents - ASA 81mg PO QD - Plavix 75mg PO QD - Metoprolol XL 25 mg PO BID - Echo in december 2017 was normal, EF of approximately 74% HTN - Metoprolol XL 25 mg PO BID HLD - Lipid panel: WNL - Crestor 10 mg PO HS GI: Nausea/vomiting - Zofran 4mg IV Q6 PRN - Lipase: 32 - Amylase: 51 Renal: Hyperkalemia - Resolved - Continue to monitor and replete as needed Endo: DKA - On admission: Anion gap 33, glucose 576, B-hydroxybutyrate 9.47 - VBG: lactate 2.5 and pH 7.14 - Received 2L NS IVF Bolus so far - LR @ 200mls/hr - Anion gap: 33--> 18 - Glucose: 150-160 - ISS - Hypoglycemia protocol - Accuchecks ACHS - Endocrinology consulted, Dr. Beckwith - HbA1C: 15 Skin/ID: Left gluteal abscess - Surgery consulted, Dr. Rose - S/p bedside I&D - Wound cx (04/17): no growth to date - WBC: 20.9--> 17.9 - Clindamycin 300mg IV Q6 (Started on 04/17) - Ciprofloxacin 400mg IV BID (Started on 04/17) - Received 1 dose of Ciprofloxacin, Vancomycin, and Flagyl in ED - Morphine 1mg IV Q6 PRN Sepsis - Code sepsis - Lactate: 2.5 - WBC: 20.9--> 17.9 - Clindamycin 300mg IV Q6 (Started on 04/17) - Ciprofloxacin 400mg IV BID (Started on 04/17) - Blood cx: f/u PPX: - Heparin 5000 units SQ Q8h - SCDs - Pepcid 20 mg IVP daily Case discussed with Dr. Ai Cespedes, PGY-1
[2018-04-18 08:03] LABS: BASO # 0.2 K/uL (0.0-0.2); EOS # 0.1 K/uL (0.0-0.7); LYMPH # 1.3 K/uL (1.0-4.3); LYMPH % 6.2 % (20.0-40.0); MONO # 3.3 K/uL (0.0-0.8); RED CELL DISTRIBUTION WIDTH 13.9 % (11.5-14.5)
[2018-04-18 08:11] LABS: BASO % 0.9 % (0.0-2.0); EOS % 0.4 % (0.0-4.0); MEAN CORPUSCULAR HEMOGLOBIN 28.3 pg (27.0-31.0); MEAN CORPUSCULAR HGB CONC 33.6 g/dL (33.0-37.0); MONO % 15.7 % (0.0-10.0); NEUT % 76.8 % (50.0-75.0); PLATELET COUNT 420 K/uL (130-400); RBC 3.72 Mil/uL (4.40-5.90); WHITE BLOOD COUNT 20.9 K/uL (4.8-10.8)
[2018-04-18 08:14] LABS: ALB/GLOB RATIO 0.9 (1.0-2.1); ALBUMIN 2.9 g/dL (3.5-5.0); ALT/SGPT 11 U/L (21-72); AST/SGOT 8 U/L (17-59); BLOOD UREA NITROGEN 30 mg/dL (9-20); CALCIUM 8.8 mg/dl (8.6-10.4); GFR NON-AFRICAN AMERICAN > 60
[2018-04-18 08:15] LABS: INR 1.3; PROTHROMBIN TIME 13.9 SECONDS (9.7-12.2)
[2018-04-18 08:18] LABS: HEMOGLOBIN 10.5 g/dL (12.0-18.0); MEAN CELL VOLUME 84.2 fL (80.0-94.0)
[2018-04-18] MEDS: Ciprofloxacin 400mg/200ml D5W 400 MG/200 ML BAG IVPB SCH ×2 (08:22→22:21)
--- NOTE | 2018-04-18 08:31 | CP.PCM.PN ---
Subjective - Date & Time of Evaluation Date of Evaluation: 04/18/18 Time of Evaluation: 07:05 - Subjective Subjective: General Surgery Progress note Dr. Rose Patient seen and examined this am at bedside NAEO per nursing. Patient states that pain is present but improving. he otherwise denies CAMPBELL, CP, SOB, abdominal pain, f/c, n/v and extremity pain or weakness. Objective - Vital Signs/Intake and Output Vital Signs (last 24 hours): Temp Pulse Resp BP Pulse Ox 100.3 F H 107 H 11 L 111/55 L 100 04/18/18 00:00 04/18/18 07:10 04/18/18 07:10 04/18/18 06:35 04/18/18 07:10 Intake and Output: 04/18/18 04/18/18 06:59 18:59 Intake Total 1954.8 202 Output Total 700 0 Balance 1254.8 202 - Medications Medications: Current Medications Aspirin (Aspirin Chewable) 81 mg PO DAILY [facility] Clopidogrel Bisulfate (Plavix) 75 mg PO DAILY [facility] Famotidine (Pepcid) 20 mg IVP DAILY [facility] Heparin Sodium (Porcine) (Heparin) 5,000 units SC Q8 [facility] Last Admin: 04/18/18 05:28 Dose: 5,000 units Ciprofloxacin (Cipro 400mg/200ml Dsw) 400 mg in 200 mls @ 133 mls/hr IVPB Q12H [facility]; Protocol Last Admin: 04/18/18 08:22 Dose: 133 mls/hr Clindamycin Phosphate 300 mg/ (Sodium Chloride) 52 mls @ 100 mls/hr IVPB Q6H [facility]; Protocol Last Admin: 04/18/18 05:29 Dose: 100 mls/hr Insulin Human Regular 100 unit (/ Sodium Chloride) 100 mls @ 9.87 mls/hr IV .Q10H8M [facility]UE; Protocol Last Admin: 04/18/18 06:20 Dose: Not Given Lactated Ringer's (Lactated Ringer's) 1,000 mls @ 200 mls/hr IV .Q5H [facility] Last Admin: 04/18/18 06:16 Dose: Not Given Metoprolol Succinate (Toprol Xl) 25 mg PO DAILY [facility] Morphine Sulfate (Morphine) 1 mg IVP Q6H PRN PRN Reason: Pain, severe (8-10) Ondansetron HCl (Zofran Inj) 4 mg IVP Q6H PRN PRN Reason: Nausea/Vomiting Last Admin: 04/18/18 08:22 Dose: 4 mg Rosuvastatin Calcium (Crestor) 10 mg PO HS [facility] Last Admin: 04/17/18 21:41 Dose: 10 mg - Labs Labs: 04/18/18 07:56 04/18/18 07:56 PT 13.9 SECONDS (9.7-12.2) H 04/18/18 07:56 INR 1.3 04/18/18 07:56 APTT 30 SECONDS (21-34) 04/18/18 07:56 - Constitutional Appears: Well, Non-toxic, No Acute Distress, Chronically Ill - Head Exam Head Exam: ATRAUMATIC, NORMOCEPHALIC - Eye Exam Eye Exam: EOMI - ENT Exam ENT Exam: Mucous Membranes Moist - Respiratory Exam Respiratory Exam: NORMAL BREATHING PATTERN - Cardiovascular Exam Cardiovascular Exam: REGULAR RHYTHM - GI/Abdominal Exam GI & Abdominal Exam: Soft. absent: Distended, Guarding, Tenderness - Extremities Exam Extremities Exam: absent: Calf Tenderness, Pedal Edema - Back Exam Additional comments: 6 cm x 5 cm area of erythema and induration over the left superior gluteal area, central area of necrosis with purulent fluid expressible, no crepitus over the area - Neurological Exam Neurological Exam: Alert, Awake, Oriented x3 - Psychiatric Exam Psychiatric exam: Normal Affect, Normal Mood - Skin Skin Exam: Warm Additional comments: 6 cm x 5 cm area of erythema and induration over the left superior gluteal area, central area of necrosis with purulent fluid expressible, no crepitus over the area Assessment and Plan - Assessment and Plan (Free Text) Assessment: 42 yr old male with left gluteal abscess/cellulitis 2/2 poorly controlled diabetes Plan: f/u final wound cultures c/w abx daily dressing changes will d/w Dr. Milton Feldman, PGY 1
--- NOTE | 2018-04-18 08:44 | CP.PCM.PN ---
Subjective - Date & Time of Evaluation Date of Evaluation: 04/18/18 Time of Evaluation: 08:30 - Subjective Subjective: Patient was seen and examined by me. Family member present in the room as well and family was ok with this. Patient is currently being treated for DKA as well as a left gluteal area abcess. His accuchecks have decreased to 154 and 174. He has been on insulin and IVF as well as IV abx. Surgery has done a I+D Per conversation he says that he has not used insulin before and only has been on oral medications. Objective - Vital Signs/Intake and Output Vital Signs (last 24 hours): Temp Pulse Resp BP Pulse Ox 100.3 F H 108 H 15 162/95 H 99 04/18/18 00:00 04/18/18 08:35 04/18/18 08:35 04/18/18 08:35 04/18/18 08:35 Intake and Output: 04/18/18 04/18/18 06:59 18:59 Intake Total 1954.8 202 Output Total 700 0 Balance 1254.8 202 - Medications Medications: Current Medications Aspirin (Aspirin Chewable) 81 mg PO DAILY [facility] Clopidogrel Bisulfate (Plavix) 75 mg PO DAILY [facility] Famotidine (Pepcid) 20 mg IVP DAILY [facility] Heparin Sodium (Porcine) (Heparin) 5,000 units SC Q8 [facility]UE Last Admin: 04/18/18 05:28 Dose: 5,000 units Ciprofloxacin (Cipro 400mg/200ml Dsw) 400 mg in 200 mls @ 133 mls/hr IVPB Q12H [facility]; Protocol Last Admin: 04/18/18 08:22 Dose: 133 mls/hr Clindamycin Phosphate 300 mg/ (Sodium Chloride) 52 mls @ 100 mls/hr IVPB Q6H [facility]; Protocol Last Admin: 04/18/18 05:29 Dose: 100 mls/hr Insulin Human Regular 100 unit (/ Sodium Chloride) 100 mls @ 9.87 mls/hr IV .Q10H8M [facility]; Protocol Last Admin: 04/18/18 06:20 Dose: Not Given Lactated Ringer's (Lactated Ringer's) 1,000 mls @ 200 mls/hr IV .Q5H [facility] Last Admin: 04/18/18 06:16 Dose: Not Given Metoprolol Succinate (Toprol Xl) 25 mg PO DAILY [facility] Morphine Sulfate (Morphine) 1 mg IVP Q6H PRN PRN Reason: Pain, severe (8-10) Ondansetron HCl (Zofran Inj) 4 mg IVP Q6H PRN PRN Reason: Nausea/Vomiting Last Admin: 04/18/18 08:22 Dose: 4 mg Rosuvastatin Calcium (Crestor) 10 mg PO HS [facility] Last Admin: 04/17/18 21:41 Dose: 10 mg - Labs Labs: 04/18/18 07:56 04/18/18 07:56 PT 13.9 SECONDS (9.7-12.2) H 04/18/18 07:56 INR 1.3 04/18/18 07:56 APTT 30 SECONDS (21-34) 04/18/18 07:56 Assessment and Plan - Assessment and Plan (Free Text) Assessment: This is a 42 year old male with PMH of DM, h/o of gluteal abscesses in the past, asthma, CAD with 4 stents approximately 8-9 years ago, NIDDM (uncontrolled) who presents to the ED due to vomiting and nausea since last night, nonbilious nonbloody. Noted to be in DKA, with sepsis (WBC 24, tachycardia) secondary to abscess left buttocks. Fluid responsive. Plan: Diabetic Ketoacidosis 04/18: Has been on IVF as well as insulin ggt. The serum bicarb is now 23, he reports does not feel as thirsty or polyuria as before. Previously on 04/17: AG is 33 on admission, Beta-OH is positive, Glucose is over 500, VBG shows lactate 2.5 and pH 7.14 Received 2L NS IVF Bolus so far LR IVF 1L bolus x2, then repeat BMP to evaluate electrolyte, and AG status Will start Insulin gtt, NPO except meds Zofran 4 mg IVP QH PRN nausea/vomiting Sepsis, likely secondary to Left buttocks Abscess 04/18: WBC decreased to 20. Patient had bedside I and D by surgery Currently IV abx cipro and clindaymycin. Pending the cultures at this moment. Pt received 1 dose of ciprofloxacin, vancomycin and flagyl in ED Hyperkalemia 04/18: Currently stable Hx of DM, uncontrolled 04/18: Per patient and family member he has not been on insulin at home in the past. Diabetic education Endocrinology, Dr. Beckwith, consulted f/u HgbA1c, it was 14+ on last admission in December 2017 Hx of CAD with stents Echo in december 2017 was normal, EF of approximately 74% Continue ASA 81 mg PO daily, Plavix 75 mg PO daily, Metoprolol 25 mg PO BID Hx of HTN Continue Metoprolol XL 25 mg PO BID Hx of HLD Lipid panel in am Crestor 10 mg PO QHs PPX VTE: Heparin 5000 units SQ q8h, SCDs Pepcid 20 mg IVP daily Counselled about compliance, dm education. 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
[2018-04-18] MEDS: Metoprolol Succinate 25 mg XL Tab PO SCH (09:38)
[2018-04-18 09:54] LABS: ANISOCYTOSIS SLIGHT; BANDS 2 % (0-2); LYMPHOCYTE 10 % (20-40); MONOCYTE 18 % (0-10); NEUTROPHIL 70 % (50-75); PLATELET ESTIMATE NORMAL (NORMAL); POIKILOCYTOSIS SLIGHT; TOTAL CELLS COUNTED 100
[2018-04-18 09:55] LABS: HYPOCHROMIC SLIGHT
[2018-04-18 10:49] LABS: AMYLASE 51 U/L (30-110); HDL CHOLESTEROL 35 mg/dL (30-70); LIPASE 32 U/L (23-300)
[2018-04-18 11:00] LABS: LDL CHOLESTEROL 68 mg/dL (0-129)
--- NOTE | 2018-04-18 11:41 | CARD ---
APPROVED REPORT Date of service: 04/18/2018 EKG Measurement Heart [id number] <Conclusion> Sinus tachycardia with occasional premature ventricular complexes Otherwise normal ECG
[2018-04-18 12:16] LABS: BASO # 0.2 K/uL (0.0-0.2); EOS # 0.1 K/uL (0.0-0.7); EOS % 0.4 % (0.0-4.0); HEMOGLOBIN 10.8 g/dL (12.0-18.0); LYMPH # 1.4 K/uL (1.0-4.3); MEAN CELL VOLUME 84.3 fL (80.0-94.0); MEAN CORPUSCULAR HEMOGLOBIN 29.2 pg (27.0-31.0); MEAN CORPUSCULAR HGB CONC 34.6 g/dL (33.0-37.0); MEAN PLATELET VOLUME 7.3 fL (7.2-11.7); MONO # 2.5 K/uL (0.0-0.8); MONO % 13.7 % (0.0-10.0); NEUT # 13.8 K/uL (1.8-7.0); NEUT % 76.9 % (50.0-75.0); PLATELET COUNT 416 K/uL (130-400); RBC 3.69 Mil/uL (4.40-5.90); RED CELL DISTRIBUTION WIDTH 13.8 % (11.5-14.5); WHITE BLOOD COUNT 17.9 K/uL (4.8-10.8)
[2018-04-18] MEDS: (Novolin R) Insulin Human Regular 100 units/ml vial SC SCH ×3 (12:25→21:16)
[2018-04-18 12:40] LABS: ALB/GLOB RATIO 0.9 (1.0-2.1); ALBUMIN 2.8 g/dL (3.5-5.0); ALT/SGPT 15 U/L (21-72); AST/SGOT 15 U/L (17-59); BLOOD UREA NITROGEN 26 mg/dL (9-20); CALCIUM 8.9 mg/dl (8.6-10.4); GFR NON-AFRICAN AMERICAN > 60
[2018-04-18 12:55] LABS: BANDS 1 % (0-2); BASOPHIL 1 % (0-2); LYMPHOCYTE 8 % (20-40); MONOCYTE 16 % (0-10); NEUTROPHIL 74 % (50-75); PLATELET ESTIMATE NORMAL (NORMAL); TOTAL CELLS COUNTED 100
[2018-04-18 12:56] LABS: ANISOCYTOSIS SLIGHT; HYPOCHROMIC SLIGHT; POIKILOCYTOSIS SLIGHT
--- NOTE | 2018-04-18 14:50 | US ---
Date of service: 04/18/2018 HISTORY: r/o pancreatitis COMPARISON: None. TECHNIQUE: Sonographic evaluation of the abdomen. FINDINGS: LIVER: Measures 17.6 cm. Diffusely increased echogenicity of the liver parenchyma. Consistent with fatty infiltration. Smooth contour. No mass. No biliary dilatation. Normal hepatopetal portal venous flow. GALLBLADDER: Unremarkable. No gallstones. COMMON BILE DUCT: Measures 3 mm. No stones. No dilatation. PANCREAS: Of pancreas. Unremarkable as visualized. No mass. No ductal dilatation. RIGHT KIDNEY: Measures 12.6cm. Normal echogenicity. No calculus, mass, or hydronephrosis. LEFT KIDNEY: Measures 12.7cm. Normal echogenicity. No calculus, mass, or hydronephrosis. SPLEEN: Normal in size and contour. No mass. AORTA: No aneurysmal dilatation. IVC: Unremarkable. OTHER FINDINGS: None. IMPRESSION: Fatty infiltration of the liver. No evidence of cholelithiasis or cholecystitis. Otherwise unremarkable examination.
[2018-04-18 17:48] VITALS: RESP 20
[2018-04-19] MEDS: Clindamycin 300 MG in Sodium Chloride 0.9% 50 ML IVPB SCH ×4 (00:09→17:40)
[2018-04-19] MEDS: Lactated Ringer's 1,000 ML IV SCH ×4 (02:43→20:54)
[2018-04-19 06:48] LABS: BASO # 0.1 K/uL (0.0-0.2); BASO % 0.4 % (0.0-2.0); EOS # 0.1 K/uL (0.0-0.7); EOS % 0.4 % (0.0-4.0); HEMOGLOBIN 10.3 g/dL (12.0-18.0); LYMPH # 1.9 K/uL (1.0-4.3); LYMPH % 12.5 % (20.0-40.0); MEAN CELL VOLUME 84.9 fL (80.0-94.0); MEAN CORPUSCULAR HEMOGLOBIN 28.7 pg (27.0-31.0); MEAN CORPUSCULAR HGB CONC 33.8 g/dL (33.0-37.0); MEAN PLATELET VOLUME 7.6 fL (7.2-11.7); MONO # 1.9 K/uL (0.0-0.8); MONO % 12.1 % (0.0-10.0); NEUT # 11.6 K/uL (1.8-7.0); NEUT % 74.6 % (50.0-75.0); RBC 3.6 Mil/uL (4.40-5.90); RED CELL DISTRIBUTION WIDTH 13.3 % (11.5-14.5); WHITE BLOOD COUNT 15.5 K/uL (4.8-10.8)
[2018-04-19 07:38] LABS: ALB/GLOB RATIO 0.8 (1.0-2.1); ALBUMIN 2.7 g/dL (3.5-5.0); ALT/SGPT 13 U/L (21-72); AST/SGOT 12 U/L (17-59); BLOOD UREA NITROGEN 20 mg/dL (9-20); CALCIUM 8.9 mg/dl (8.6-10.4); GFR NON-AFRICAN AMERICAN > 60
--- NOTE | 2018-04-19 07:53 | CON ---
DATE: 04/18/2018 ENDOCRINOLOGY CONSULT LOCATION: In ICU, room 10. HISTORY OF PRESENT ILLNESS: This is a 42-year-old male with known history of type 2 diabetes, hypertension, presenting here with a left gluteal abscess and supervening marked hyperglycemic accelerations and is now being referred for diabetic evaluation for diabetic ketoacidosis and dehydration. PAST MEDICAL HISTORY: History of type 2 diabetes, currently on a combination of metformin given as 1 g of b.i.d. and glipizide of 10 mg b.i.d. History of hypertension and dyslipidemia. History of coronary artery disease with previous coronary stent placements. History of peripheral arterial disease and vasculopathy. FAMILY HISTORY: Positive for diabetes and hypertension. SOCIAL HISTORY: The patient smokes a pack a day for many years now and has a supportive family otherwise. REVIEW OF SYSTEMS: Admits to generalized body weakness with episodic bouts of dizziness and lightheadedness. No chest pains or palpitations. His oral intake has been variable with nausea and dyspepsia with marked polyuria, nocturia, and polydipsia. PHYSICAL EXAMINATION: GENERAL: This is an average-built male, in no apparent distress. VITAL SIGNS: Blood pressure of 150/90, pulse of 100 beats per minute and regular, temperature 98, respirations 20. Height is 5 feet 4 inches, weight is 145 pounds. HEENT: Head, normocephalic. Eyes, anicteric with pink conjunctivae. Funduscopy not possible at this time. Ears, nose, and throat are otherwise normal. NECK: Supple. Thyroid gland is normal sized. No carotid bruits or cervical adenopathy. CARDIOPULMONARY: Adynamic precordium. S1 and S2 are rapid and regular. LUNGS: Clear to auscultation. ABDOMEN: Flat, soft with positive bowel sounds. EXTREMITIES: No peripheral edema. Pulses are +2 bilaterally. He has a left gluteal abscess as noted. LABORATORIES: Chemistries: Initially BUN of 33, sodium 138, potassium 5.5, chloride 95, CO2 10, glucose 576, and creatinine 1.3. ASSESSMENT: This is a 42-year-old male with uncontrolled and decompensated type 2 insulin-requiring diabetes, presenting with diabetic ketoacidosis and dehydration with a concomitant left gluteal abscess which has been also contributed to increased insulin resistance and further impaired glucose tolerance thereof. He also has clinical and biochemical evidence of dehydration and prerenal azotemia. PLAN OF MANAGEMENT: We will continue the insulin drip infusion as given overnight from the emergency room to ICU as ordered. Today, he has been taken off the insulin drip and switched over to a correction scale as ordered. we will observe his glycemic fluctuations and start him back tomorrow morning on oral hypoglycemic therapy as indicated. We will add basal insulin if fasting hyperglycemic levels persist. We will continue the vigorous IV hydration as given to optimize the lost fluids and electrolytes from the increased osmotic diuresis thereof. We will obtain serial chemistries and supplement accordingly as needed. We will follow. Gabby Beckwith MD
[2018-04-19] MEDS: (Novolin R) Insulin Human Regular 100 units/ml vial SC SCH ×4 (08:22→17:38)
[2018-04-19] MEDS: Ciprofloxacin 400mg/200ml D5W 400 MG/200 ML BAG IVPB SCH ×2 (08:48→21:10)
[2018-04-19] MEDS ORDERED: (Novolin 70/30) NPH/Regular 70/30 Units/ml 10 ml vial SC ONE ×2 (09:15→11:15)
--- NOTE | 2018-04-19 10:00 | CP.PCM.PN ---
<Gopi Shin - Last Filed: 04/19/18 15:02> Subjective - Date & Time of Evaluation Date of Evaluation: 04/19/18 Time of Evaluation: 09:58 - Subjective Subjective: PGY-1 Medicine progress note for Dr. Carranza Pt was sen and examined at bedside. Patinet is resting comfortably. No complaints or acute events overnight. Pt states that the pain in the left buttocks abscess is improving. As per patient and surgery abscess was draining purulent fluid from incision today. Pt denies fever, chills, chest pain, sob, palpitations, abdominal pain, n/v/d, headache, dizziness, lightheadedness. Objective - Vital Signs/Intake and Output Vital Signs (last 24 hours): Temp Pulse Resp BP Pulse Ox 98.1 F 80 20 162/95 H 98 04/19/18 08:00 04/19/18 08:00 04/19/18 08:00 04/19/18 08:00 04/19/18 08:00 Intake and Output: 04/19/18 04/19/18 06:59 18:59 Intake Total 1200 1720 Balance 1200 1720 - Medications Medications: Current Medications Aspirin (Aspirin Chewable) 81 mg PO DAILY [facility] Last Admin: 04/18/18 09:38 Dose: 81 mg Clopidogrel Bisulfate (Plavix) 75 mg PO DAILY [facility] Last Admin: 04/18/18 09:38 Dose: 75 mg Famotidine (Pepcid) 20 mg IVP DAILY [facility] Last Admin: 04/18/18 09:37 Dose: 20 mg Heparin Sodium (Porcine) (Heparin) 5,000 units SC Q8 [facility] Last Admin: 04/19/18 05:37 Dose: 5,000 units Ciprofloxacin (Cipro 400mg/200ml Dsw) 400 mg in 200 mls @ 133 mls/hr IVPB Q12H [facility]; Protocol Last Admin: 04/19/18 08:48 Dose: 133 mls/hr Clindamycin Phosphate 300 mg/ (Sodium Chloride) 52 mls @ 100 mls/hr IVPB Q6H [facility]; Protocol Last Admin: 04/19/18 05:38 Dose: 100 mls/hr Lactated Ringer's (Lactated Ringer's) 1,000 mls @ 200 mls/hr IV .Q5H [facility] Last Admin: 04/19/18 08:38 Dose: Not Given Insulin Human Regular (Novolin R) 0 unit SC ACHS [facility]; Protocol Last Admin: 04/19/18 08:30 Dose: 8 units Metoprolol Succinate (Toprol Xl) 25 mg PO DAILY [facility] Last Admin: 04/18/18 09:38 Dose: 25 mg Morphine Sulfate (Morphine) 1 mg IVP Q6H PRN PRN Reason: Pain, severe (8-10) Last Admin: 04/19/18 08:46 Dose: 1 mg Ondansetron HCl (Zofran Inj) 4 mg IVP Q6H PRN PRN Reason: Nausea/Vomiting Last Admin: 04/18/18 08:22 Dose: 4 mg Rosuvastatin Calcium (Crestor) 10 mg PO HS [facility] Last Admin: 04/18/18 22:22 Dose: 10 mg - Labs Labs: 04/19/18 06:31 04/19/18 06:31 PT 13.9 SECONDS (9.7-12.2) H 04/18/18 07:56 INR 1.3 04/18/18 07:56 APTT 30 SECONDS (21-34) 04/18/18 07:56 - Constitutional Appears: Non-toxic, No Acute Distress - Head Exam Head Exam: ATRAUMATIC, NORMAL INSPECTION - Eye Exam Eye Exam: EOMI, Normal appearance - ENT Exam ENT Exam: Mucous Membranes Moist - Respiratory Exam Respiratory Exam: Clear to Ausculation Bilateral. absent: Rales, Rhonchi, Wheezes, Respiratory Distress - Cardiovascular Exam Cardiovascular Exam: REGULAR RHYTHM, +S1, +S2 - GI/Abdominal Exam GI & Abdominal Exam: Soft, Normal Bowel Sounds. absent: Distended, Firm, Guarding, Tenderness - Extremities Exam Extremities Exam: Normal Capillary Refill, Normal Inspection. absent: Calf Tenderness, Pedal Edema, Tenderness - Back Exam Back Exam: NORMAL INSPECTION - Neurological Exam Neurological Exam: Alert, Awake - Psychiatric Exam Psychiatric exam: Normal Affect, Normal Mood - Skin Skin Exam: Dry, Normal Color, Warm Additional comments: (+) induration surrounding incision and drainage site of left buttocks abscess (+) 1 cm x 1cm area of induration, slight fluctuance, and redness to the right upper quadrant, surrounded by multuple areas of healed I&D scars Assessment and Plan - Assessment and Plan (Free Text) Assessment: This is a 42 year old male with PMH of DM, h/o of gluteal abscesses in the past, asthma, CAD with 4 stents approximately 8-9 years ago, NIDDM (uncontrolled) who presents to the ED due to vomiting and nausea since last night, nonbilious nonbloody. Noted to be in DKA, with sepsis (WBC 24, tachycardia) secondary to abscess left buttocks. Fluid responsive. Plan: Diabetic Ketoacidosis, resolved Downgraded from ICU as DKA has resolved. VS are stable. AG has closed. Received 2L NS IVF Bolus so far LR IVF 1L bolus x2, then repeat BMP to evaluate electrolyte, and AG status Will start Insulin gtt, NPO except meds Zofran 4 mg IVP QH PRN nausea/vomiting TSH is 1.89, Free T4 is 1. Hyperkalemia, resolved 5.5 on admission, currently normal Pt is overall potassium deficit secondary to DKA No need to give potassium lowering agent at this time EKG shows peaked t-waves in ED Repeat EKG (04/18) shows ST with occasional PVCs Sepsis, likely secondary to Left buttocks Abscess Surgery, Dr. Rose, consulted 04/17: Marc, surgical elastic knitter hand frame, performed bedside I&D with wound culture 04/19: surgery noted expression of purulent discharge from incision. Recs daily dressing changes. WBC continues to downtrend Continue Ciprofloxacin 400 mg IVPB Q12H, Clindamycin 300 mg IVPB Q6H Blood culture x2 prelim is negative for the past 48 hours Wound culture for I&D of left gluteal abscess is MSSA Warm compresses for second boil on abdomen Hx of DM2, uncontrolled Diabetic education Pt informed that he will now require Insulin subcutaneously, pt understands and agrees Endocrinology, Dr. Beckwith, consulted Novolin 20 units SC QHS, Insulin Regular 10 units SC ACBD, ISS It was 14+ on last admission in December 2017 HgbA1c is 15.0 Hx of CAD with stents Echo in december 2017 was normal, EF of approximately 74% Continue ASA 81 mg PO daily, Plavix 75 mg PO daily, Metoprolol 25 mg PO BID Hx of HTN Continue Metoprolol XL 25 mg PO BID Hx of HLD TG/CHL/LDL/HDL is 72/125/68/35 Crestor 10 mg PO QHs PPX VTE: Heparin 5000 units SQ q8h, SCDs Pepcid 20 mg IVP daily Counselled about compliance, dm education. 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 Will continue to mon itor blood sugars, insulin regime adjusted by Dr. Beckwith Case discussed with attending physician, Dr. Tere Shin PGY-1 <Castillo Carranza H - Last Filed: 04/19/18 16:56> Objective - Vital Signs/Intake and Output Vital Signs (last 24 hours): Temp Pulse Resp BP Pulse Ox 98.1 F 80 20 162/95 H 98 04/19/18 08:00 04/19/18 08:00 04/19/18 08:00 04/19/18 08:00 04/19/18 08:00 Intake and Output: 04/19/18 04/19/18 06:59 18:59 Intake Total 1200 3470 Balance 1200 3470 - Medications Medications: Current Medications Aspirin (Aspirin Chewable) 81 mg PO DAILY [facility] Last Admin: 04/19/18 10:58 Dose: 81 mg Clopidogrel Bisulfate (Plavix) 75 mg PO DAILY [facility] Last Admin: 04/19/18 10:58 Dose: 75 mg Famotidine (Pepcid) 20 mg IVP DAILY [facility] Last Admin: 04/19/18 11:00 Dose: 20 mg Heparin Sodium (Porcine) (Heparin) 5,000 units SC Q8 [facility] Last Admin: 04/19/18 14:58 Dose: 5,000 units Ciprofloxacin (Cipro 400mg/200ml Dsw) 400 mg in 200 mls @ 133 mls/hr IVPB Q12H [facility]; Protocol Last Admin: 04/19/18 08:48 Dose: 133 mls/hr Clindamycin Phosphate 300 mg/ (Sodium Chloride) 52 mls @ 100 mls/hr IVPB Q6H [facility]; Protocol Last Admin: 04/19/18 12:57 Dose: 100 mls/hr Lactated Ringer's (Lactated Ringer's) 1,000 mls @ 200 mls/hr IV .Q5H [facility] Last Admin: 04/19/18 14:57 Dose: 200 mls/hr Insulin Human NPH (Novolin N) 20 unit SC HS [facility] Insulin Human Regular (Novolin R) 10 unit SC ACBD [facility] Insulin Human Regular (Novolin R) 0 unit SC ACHS [facility] Lidocaine HCl (Lidocaine Hydrochloride Jelly 2% 5 Ml) 0 ml TOP Q4H [facility] Metoprolol Succinate (Toprol Xl) 25 mg PO DAILY [facility] Last Admin: 04/19/18 10:58 Dose: 25 mg Morphine Sulfate (Morphine) 1 mg IVP Q6H PRN PRN Reason: Pain, severe (8-10) Last Admin: 04/19/18 08:46 Dose: 1 mg Ondansetron HCl (Zofran Inj) 4 mg IVP Q6H PRN PRN Reason: Nausea/Vomiting Last Admin: 04/18/18 08:22 Dose: 4 mg Rosuvastatin Calcium (Crestor) 10 mg PO HS [facility] Last Admin: 04/18/18 22:22 Dose: 10 mg - Labs Labs: 04/19/18 06:31 04/19/18 06:31 PT 13.9 SECONDS (9.7-12.2) H 04/18/18 07:56 INR 1.3 04/18/18 07:56 APTT 30 SECONDS (21-34) 04/18/18 07:56 Attending/Attestation - Attestation I have personally seen and examined this patient.: Yes I have fully participated in the care of the patient.: Yes I have reviewed all pertinent clinical information, including history, physical exam and plan: Yes Notes (Text): 04/19/18 16:53 Medical attending: Patient was seen and examined by me. Agree with the above note by the medical staff services coordinator The patient was not in any acute distress when I came and saw the patient. We have made further adjustments to the insulin to include Novolin 70/30 BID and I explained to the patient that ai sherman will be increasing the dose later. He still has some packing in the area of the gluteal that was I and D. thank you Castillo Carranza
[2018-04-19] MEDS: Metoprolol Succinate 25 mg XL Tab PO SCH (10:58)
--- NOTE | 2018-04-19 11:34 | CP.PCM.PN ---
Subjective - Date & Time of Evaluation Date of Evaluation: 04/19/18 Time of Evaluation: 11:29 - Subjective Subjective: General Surgery Progress note Dr. Rose This 42M was seen and examined this AM at bedside. No acute events reported overnight. He reports that he is feeling alot better. He otherwise denies CAMPBELL, CP, SOB, abdominal pain, f/c, n/v and extremity pain or weakness. Objective - Vital Signs/Intake and Output Vital Signs (last 24 hours): Temp Pulse Resp BP Pulse Ox 98.1 F 80 20 162/95 H 98 04/19/18 08:00 04/19/18 08:00 04/19/18 08:00 04/19/18 08:00 04/19/18 08:00 Intake and Output: 04/19/18 04/19/18 06:59 18:59 Intake Total 1200 1720 Balance 1200 1720 - Medications Medications: Current Medications Aspirin (Aspirin Chewable) 81 mg PO DAILY [facility] Last Admin: 04/19/18 10:58 Dose: 81 mg Clopidogrel Bisulfate (Plavix) 75 mg PO DAILY [facility] Last Admin: 04/19/18 10:58 Dose: 75 mg Famotidine (Pepcid) 20 mg IVP DAILY [facility] Last Admin: 04/19/18 11:00 Dose: 20 mg Heparin Sodium (Porcine) (Heparin) 5,000 units SC Q8 [facility] Last Admin: 04/19/18 05:37 Dose: 5,000 units Ciprofloxacin (Cipro 400mg/200ml Dsw) 400 mg in 200 mls @ 133 mls/hr IVPB Q12H [facility]; Protocol Last Admin: 04/19/18 08:48 Dose: 133 mls/hr Clindamycin Phosphate 300 mg/ (Sodium Chloride) 52 mls @ 100 mls/hr IVPB Q6H [facility]; Protocol Last Admin: 04/19/18 05:38 Dose: 100 mls/hr Lactated Ringer's (Lactated Ringer's) 1,000 mls @ 200 mls/hr IV .Q5H [facility] Last Admin: 04/19/18 08:38 Dose: Not Given Insulin Human Regular (Novolin R) 0 unit SC ACHS [facility]; Protocol Last Admin: 04/19/18 08:30 Dose: 8 units Metoprolol Succinate (Toprol Xl) 25 mg PO DAILY [facility] Last Admin: 04/19/18 10:58 Dose: 25 mg Morphine Sulfate (Morphine) 1 mg IVP Q6H PRN PRN Reason: Pain, severe (8-10) Last Admin: 04/19/18 08:46 Dose: 1 mg Ondansetron HCl (Zofran Inj) 4 mg IVP Q6H PRN PRN Reason: Nausea/Vomiting Last Admin: 04/18/18 08:22 Dose: 4 mg Rosuvastatin Calcium (Crestor) 10 mg PO HS [facility] Last Admin: 04/18/18 22:22 Dose: 10 mg - Labs Labs: 04/19/18 06:31 04/19/18 06:31 PT 13.9 SECONDS (9.7-12.2) H 04/18/18 07:56 INR 1.3 04/18/18 07:56 APTT 30 SECONDS (21-34) 04/18/18 07:56 - Constitutional Appears: Non-toxic, No Acute Distress - Head Exam Head Exam: ATRAUMATIC, NORMOCEPHALIC - Eye Exam Eye Exam: EOMI - ENT Exam ENT Exam: Mucous Membranes Moist - Respiratory Exam Respiratory Exam: NORMAL BREATHING PATTERN - Cardiovascular Exam Cardiovascular Exam: +S1, +S2 - GI/Abdominal Exam GI & Abdominal Exam: Soft. absent: Distended, Firm, Guarding, Rigid, Tenderness - Rectal Exam Additional comments: Gluteal abscess now draining purulent fluid from incision - Neurological Exam Neurological Exam: Alert, Awake - Psychiatric Exam Psychiatric exam: Normal Affect, Normal Mood - Skin Skin Exam: Dry, Intact Assessment and Plan - Assessment and Plan (Free Text) Assessment: 42 yr old male with left gluteal abscess/cellulitis 2/2 poorly controlled diabetes Plan: f/u final wound cultures c/w abx daily dressing changes Warm compresses will d/w Dr. Milton Jackson PGY3
[2018-04-19] MEDS ORDERED: Lidocaine/Prilocaine 2.5%-2.5% Cream (5 gm) TOP SCH (15:00)
--- NOTE | 2018-04-19 19:42 | PN ---
DATE: 04/19/2018 ENDOCRINOLOGY FOLLOWUP NOTE LOCATION: Room 357. This is a 42-year-old male with recent uncontrolled type 2 insulin-requiring diabetes, now being followed closely for metabolic management. His glycemic levels are fluctuating as noted with glucose values overnight ranging from 306 to 316 mg/dL. His chemistry showed a BUN of 20, sodium 134, potassium 4.5, chloride 99, CO2 of 20, glucose 317, and creatinine 0.7. So at this time, we will initiate basal and bolus insulin regimen at least for inpatient diabetic management with NPH given as 20 units subcu at bedtime daily to start tonight. We will add regular insulin given as 8 units b.i.d. before meals as ordered. We will obtain serial chemistries and supplement accordingly as needed. We will follow. Gabby Beckwith MD
[2018-04-19] MEDS ORDERED: (Novolin N) Insulin Human Isophane (NPH) 100 u/ml 10 ml vial SC SCH (22:00)
[2018-04-20] MEDS: Clindamycin 300 MG in Sodium Chloride 0.9% 50 ML IVPB SCH ×3 (00:09→11:57)
[2018-04-20] MEDS: Lidocaine 2% Jelly (5 ml) TOP SCH ×4 (01:30→16:45)
[2018-04-20] MEDS: Lactated Ringer's 1,000 ML IV SCH ×4 (03:45→18:10)
[2018-04-20] MEDS ORDERED: Benzocaine/Menthol (Cepacol) Lozenge MT ONE (04:38)
[2018-04-20] MEDS: Ciprofloxacin 400mg/200ml D5W 400 MG/200 ML BAG IVPB SCH (08:29)
[2018-04-20] MEDS: (Novolin R) Insulin Human Regular 100 units/ml vial SC SCH ×4 (08:30→17:00)
[2018-04-20 08:31] LABS: BASO # 0.1 K/uL (0.0-0.2); BASO % 0.9 % (0.0-2.0); EOS # 0.2 K/uL (0.0-0.7); EOS % 1.3 % (0.0-4.0); HEMOGLOBIN 10.5 g/dL (12.0-18.0); LYMPH # 2.3 K/uL (1.0-4.3); MEAN CELL VOLUME 84.2 fL (80.0-94.0); MEAN CORPUSCULAR HEMOGLOBIN 28.8 pg (27.0-31.0); MEAN CORPUSCULAR HGB CONC 34.3 g/dL (33.0-37.0); MEAN PLATELET VOLUME 7.8 fL (7.2-11.7); MONO # 1.5 K/uL (0.0-0.8); MONO % 12.3 % (0.0-10.0); NEUT # 8.5 K/uL (1.8-7.0); NEUT % 67.5 % (50.0-75.0); RBC 3.64 Mil/uL (4.40-5.90); RED CELL DISTRIBUTION WIDTH 13.2 % (11.5-14.5); WHITE BLOOD COUNT 12.5 K/uL (4.8-10.8)
[2018-04-20 08:38] LABS: ALB/GLOB RATIO 0.8 (1.0-2.1); ALBUMIN 2.9 g/dL (3.5-5.0); ALT/SGPT 17 U/L (21-72); AST/SGOT 24 U/L (17-59); BLOOD UREA NITROGEN 16 mg/dL (9-20); CALCIUM 8.8 mg/dl (8.6-10.4); GFR NON-AFRICAN AMERICAN > 60
--- NOTE | 2018-04-20 09:39 | CP.PCM.PN ---
Subjective - Date & Time of Evaluation Date of Evaluation: 04/20/18 Time of Evaluation: 09:38 Objective - Vital Signs/Intake and Output Vital Signs (last 24 hours): Temp Pulse Resp BP Pulse Ox 98.1 F 73 20 165/85 H 97 04/20/18 08:00 04/20/18 08:00 04/20/18 08:00 04/20/18 08:00 04/20/18 08:00 Intake and Output: 04/20/18 04/20/18 06:59 18:59 Intake Total 1300 1740 Output Total 1 Balance 1299 1740 - Medications Medications: Current Medications Albuterol/Ipratropium (Duoneb 3 Mg/0.5 Mg (3 Ml) Ud) 3 ml INH RQ4 [facility] Aspirin (Aspirin Chewable) 81 mg PO DAILY [facility] Last Admin: 04/19/18 10:58 Dose: 81 mg Clopidogrel Bisulfate (Plavix) 75 mg PO DAILY [facility] Last Admin: 04/19/18 10:58 Dose: 75 mg Famotidine (Pepcid) 20 mg IVP DAILY [facility] Last Admin: 04/19/18 11:00 Dose: 20 mg Heparin Sodium (Porcine) (Heparin) 5,000 units SC Q8 [facility] Last Admin: 04/20/18 05:39 Dose: 5,000 units Ciprofloxacin (Cipro 400mg/200ml Dsw) 400 mg in 200 mls @ 133 mls/hr IVPB Q12H [facility]; Protocol Last Admin: 04/20/18 08:29 Dose: 133 mls/hr Clindamycin Phosphate 300 mg/ (Sodium Chloride) 52 mls @ 100 mls/hr IVPB Q6H [facility]; Protocol Last Admin: 04/20/18 05:28 Dose: 100 mls/hr Lactated Ringer's (Lactated Ringer's) 1,000 mls @ 200 mls/hr IV .Q5H [facility] Last Admin: 04/20/18 05:28 Dose: 200 mls/hr Insulin Human NPH (Novolin N) 20 unit SC HS [facility] Last Admin: 04/19/18 21:11 Dose: 20 units Insulin Human Regular (Novolin R) 10 unit SC ACBD [facility] Last Admin: 04/20/18 08:30 Dose: 10 units Insulin Human Regular (Novolin R) 0 unit SC ACHS [facility] Lidocaine HCl (Lidocaine Hydrochloride Jelly 2% 5 Ml) 0 ml TOP Q4H [facility] Last Admin: 04/20/18 05:32 Dose: 5 ml Metoprolol Succinate (Toprol Xl) 25 mg PO DAILY [facility] Last Admin: 04/19/18 10:58 Dose: 25 mg Morphine Sulfate (Morphine) 1 mg IVP Q6H PRN PRN Reason: Pain, severe (8-10) Last Admin: 04/19/18 08:46 Dose: 1 mg Ondansetron HCl (Zofran Inj) 4 mg IVP Q6H PRN PRN Reason: Nausea/Vomiting Last Admin: 04/18/18 08:22 Dose: 4 mg Rosuvastatin Calcium (Crestor) 10 mg PO HS [facility] Last Admin: 04/19/18 21:09 Dose: 10 mg - Labs Labs: 04/20/18 08:11 04/20/18 08:11 PT 13.9 SECONDS (9.7-12.2) H 04/18/18 07:56 INR 1.3 04/18/18 07:56 APTT 30 SECONDS (21-34) 04/18/18 07:56
[2018-04-20] MEDS: Metoprolol Succinate 25 mg XL Tab PO SCH (10:02)
[2018-04-20] MEDS: Albuterol-Ipratrop 3 mg / 0.5 (3 ml) UD INH SCH ×2 (11:23→16:28)
--- NOTE | 2018-04-20 11:49 | CP.PCM.PN ---
Subjective - Date & Time of Evaluation Date of Evaluation: 04/20/18 Time of Evaluation: 11:00 - Subjective Subjective: Surgery progress note for Dr. Rose Pt seen and examined at bedside this AM. Patient reports pain improved but has a second lesion on his chest. Patient denies any fevers, chills, or any other symptoms. Objective - Vital Signs/Intake and Output Vital Signs (last 24 hours): Temp Pulse Resp BP Pulse Ox 98.1 F 70 20 165/85 H 97 04/20/18 08:00 04/20/18 11:36 04/20/18 08:00 04/20/18 08:00 04/20/18 08:00 Intake and Output: 04/20/18 04/20/18 06:59 18:59 Intake Total 1300 1740 Output Total 1 Balance 1299 1740 - Medications Medications: Current Medications Albuterol/Ipratropium (Duoneb 3 Mg/0.5 Mg (3 Ml) Ud) 3 ml INH RQ4 [facility] Last Admin: 04/20/18 11:23 Dose: 3 ml Aspirin (Aspirin Chewable) 81 mg PO DAILY [facility] Last Admin: 04/20/18 10:02 Dose: 81 mg Clopidogrel Bisulfate (Plavix) 75 mg PO DAILY [facility] Last Admin: 04/20/18 10:04 Dose: 75 mg Famotidine (Pepcid) 20 mg IVP DAILY [facility] Last Admin: 04/20/18 10:02 Dose: 20 mg Heparin Sodium (Porcine) (Heparin) 5,000 units SC Q8 [facility] Last Admin: 04/20/18 05:39 Dose: 5,000 units Ciprofloxacin (Cipro 400mg/200ml Dsw) 400 mg in 200 mls @ 133 mls/hr IVPB Q12H [facility]; Protocol Last Admin: 04/20/18 08:29 Dose: 133 mls/hr Clindamycin Phosphate 300 mg/ (Sodium Chloride) 52 mls @ 100 mls/hr IVPB Q6H [facility]; Protocol Last Admin: 04/20/18 05:28 Dose: 100 mls/hr Lactated Ringer's (Lactated Ringer's) 1,000 mls @ 200 mls/hr IV .Q5H [facility] Last Admin: 04/20/18 11:46 Dose: Not Given Insulin Human NPH (Novolin N) 20 unit SC HS [facility] Last Admin: 04/19/18 21:11 Dose: 20 units Insulin Human Regular (Novolin R) 10 unit SC ACBD [facility] Last Admin: 04/20/18 08:30 Dose: 10 units Insulin Human Regular (Novolin R) 0 unit SC ACHS [facility] Last Admin: 04/20/18 11:46 Dose: Not Given Lidocaine HCl (Lidocaine Hydrochloride Jelly 2% 5 Ml) 0 ml TOP Q4H [facility] Last Admin: 04/20/18 10:03 Dose: 5 ml Metoprolol Succinate (Toprol Xl) 25 mg PO DAILY [facility] Last Admin: 04/20/18 10:02 Dose: 25 mg Morphine Sulfate (Morphine) 1 mg IVP Q6H PRN PRN Reason: Pain, severe (8-10) Last Admin: 04/19/18 08:46 Dose: 1 mg Ondansetron HCl (Zofran Inj) 4 mg IVP Q6H PRN PRN Reason: Nausea/Vomiting Last Admin: 04/18/18 08:22 Dose: 4 mg Rosuvastatin Calcium (Crestor) 10 mg PO HS [facility] Last Admin: 04/19/18 21:09 Dose: 10 mg - Labs Labs: 04/20/18 08:11 04/20/18 08:11 PT 13.9 SECONDS (9.7-12.2) H 04/18/18 07:56 INR 1.3 04/18/18 07:56 APTT 30 SECONDS (21-34) 04/18/18 07:56 - Constitutional Appears: Well, Non-toxic, No Acute Distress - Head Exam Head Exam: ATRAUMATIC, NORMOCEPHALIC - Eye Exam Eye Exam: Normal appearance. absent: Conjunctival injection, Scleral icterus - ENT Exam ENT Exam: Mucous Membranes Moist, Normal Oropharynx - Respiratory Exam Respiratory Exam: NORMAL BREATHING PATTERN. absent: Accessory Muscle Use, Respiratory Distress Additional comments: anterior midline chest with small raised, erythematous lesion, non-fluctuant approximately 0.5cm in diameter - Cardiovascular Exam Cardiovascular Exam: RRR - GI/Abdominal Exam GI & Abdominal Exam: Soft. absent: Distended - Rectal Exam Additional comments: left gluteal incision site edges not approximated with small amount of purulent fluid expressed with surrounding ring of superficial necrotic tissue - Extremities Exam Extremities Exam: absent: Calf Tenderness, Pedal Edema, Tenderness - Neurological Exam Neurological Exam: Alert, Awake, Oriented x3 - Psychiatric Exam Psychiatric exam: Normal Affect, Normal Mood - Skin Skin Exam: Dry, Normal Color, Warm Assessment and Plan - Assessment and Plan (Free Text) Assessment: 42M POD#3 S/P Incision and drainage of left gluteal abscess Plan: No further surgical intervention at this time Patient may be D/C with daily santyl application to wound and PO antibiotic per the culture sensitivities Follow up with Dr. Rose in her office in 2 weeks, or sooner if any complic ations arise Continue warm compresses on gluteal abscess and on chest lesion at home Strict control of blood sugar, re-emphasized to patient Discussed with dr. Rose, who agrees with above Sherry Bradford, PGY2
--- NOTE | 2018-04-20 13:03 | CP.PCM.DIS ---
<HarinderGopi chan - Last Filed: 04/20/18 16:39> Provider - Provider Date of Admission: 04/17/18 15:42 Attending physician: Castillo Carranza DO Time Spent in preparation of Discharge (in minutes): 35 Diagnosis - Discharge Diagnosis (1) Abscess of buttock Status: Acute (2) DKA (diabetic ketoacidoses) Status: Acute (3) Sepsis Status: Acute (4) Hyperglycemia due to type 2 diabetes mellitus Status: Acute (5) Uncontrolled diabetes mellitus Status: Acute Hospital Course - Lab Results Lab Results: Micro Results 04/18/18 18:23 Nose MRSA Culture - Final MRSA NOT DETECTED 04/17/18 Unknown Naris MRSA Culture (Admit) - Final MRSA NOT DETECTED 04/17/18 14:00 Blood Blood Culture - Preliminary NO GROWTH AFTER 48 HOURS 04/17/18 14:30 Blood Blood Culture - Preliminary NO GROWTH AFTER 48 HOURS 04/17/18 18:06 Abscess - Buttock-Left Gram Stain - Final 04/17/18 18:06 Abscess - Buttock-Left Wound Culture - Final Staphylococcus Aureus Most Recent Lab Values WBC 12.5 K/uL (4.8-10.8) H 04/20/18 08:11 RBC 3.64 Mil/uL (4.40-5.90) L 04/20/18 08:11 Hgb 10.5 g/dL (12.0-18.0) L 04/20/18 08:11 Hct 30.7 % (35.0-51.0) L 04/20/18 08:11 MCV 84.2 fL (80.0-94.0) 04/20/18 08:11 MCH 28.8 pg (27.0-31.0) 04/20/18 08:11 MCHC 34.3 g/dL (33.0-37.0) 04/20/18 08:11 RDW 13.2 % (11.5-14.5) 04/20/18 08:11 Plt Count 405 K/uL (130-400) H 04/20/18 08:11 MPV 7.8 fL (7.2-11.7) 04/20/18 08:11 Neut % (Auto) 67.5 % (50.0-75.0) 04/20/18 08:11 Lymph % (Auto) 18.0 % (20.0-40.0) L 04/20/18 08:11 Valencia % (Auto) 12.3 % (0.0-10.0) H 04/20/18 08:11 Eos % (Auto) 1.3 % (0.0-4.0) 04/20/18 08:11 Baso % (Auto) 0.9 % (0.0-2.0) 04/20/18 08:11 Neut # (Auto) 8.5 K/uL (1.8-7.0) H 04/20/18 08:11 Lymph # (Auto) 2.3 K/uL (1.0-4.3) 04/20/18 08:11 Valencia # (Auto) 1.5 K/uL (0.0-0.8) H 04/20/18 08:11 Eos # (Auto) 0.2 K/uL (0.0-0.7) 04/20/18 08:11 Baso # (Auto) 0.1 K/uL (0.0-0.2) 04/20/18 08:11 Neutrophils % (Manual) 74 % (50-75) 04/18/18 12:09 Band Neutrophils % 1 % (0-2) 04/18/18 12:09 Lymphocytes % (Manual) 8 % (20-40) L 04/18/18 12:09 Monocytes % (Manual) 16 % (0-10) H 04/18/18 12:09 Basophils % (Manual) 1 % (0-2) 04/18/18 12:09 Platelet Estimate Normal (NORMAL) 04/18/18 12:09 RBC Morphology Normal 04/17/18 14:37 Hypochromasia (manual) Slight 04/18/18 12:09 Poikilocytosis (manual Slight 04/18/18 12:09 Anisocytosis (manual) Slight 04/18/18 12:09 PT 13.9 SECONDS (9.7-12.2) H 04/18/18 07:56 INR 1.3 04/18/18 07:56 APTT 30 SECONDS (21-34) 04/18/18 07:56 pO2 31 mm/Hg (30-55) 04/17/18 14:42 VBG pH 7.14 (7.32-7.43) L* 04/17/18 14:42 VBG pCO2 30 mmHg (40-60) L 04/17/18 14:42 VBG HCO3 9.7 mmol/L 04/17/18 14:42 VBG Total CO2 11.1 mmol/L (22-28) L 04/17/18 14:42 VBG O2 Sat (Calc) 57.3 % (40-65) 04/17/18 14:42 VBG Base Excess -17.5 mmol/L (0.0-2.0) L 04/17/18 14:42 VBG Potassium 5.1 mmol/L (3.6-5.2) 04/17/18 14:42 Sodium 139.0 mmol/l (132-148) 04/17/18 14:42 Chloride 97.0 mmol/L (98-107) L 04/17/18 14:42 Glucose 582 mg/dl (75-110) H* 04/17/18 14:42 Lactate 2.5 mmol/L (0.7-2.1) H 04/17/18 14:42 FiO2 21.0 % 04/17/18 14:42 Crit Value Called To Tyra chávez 04/17/18 14:42 Crit Value Called By Shara rt 04/17/18 14:42 Crit Value Read Back Y 04/17/18 14:42 Blood Gas Notified Time 1450 04/17/18 14:42 Sodium 134 mmol/L (132-148) 04/20/18 08:11 Potassium 4.1 mmol/L (3.6-5.2) 04/20/18 08:11 Chloride 100 mmol/L (98-107) 04/20/18 08:11 Carbon Dioxide 27 mmol/L (22-30) 04/20/18 08:11 Anion Gap 11 (10-20) 04/20/18 08:11 BUN 16 mg/dL (9-20) 04/20/18 08:11 Creatinine 0.6 mg/dL (0.8-1.5) L 04/20/18 08:11 Est GFR ( Amer) > 60 04/20/18 08:11 Est GFR (Non-Af Amer) > 60 04/20/18 08:11 POC Glucose (mg/dL) 171 mg/dL (65-110) H 04/20/18 11:11 Random Glucose 181 mg/dL (75-110) H 04/20/18 08:11 Hemoglobin A1c 15.0 % (4.2-6.5) H 04/17/18 21:39 Serum Osmolality 334 mosm/kg (272-300) H 04/17/18 14:37 Lactic Acid 3.0 mmol/L (0.7-2.1) H 04/17/18 19:00 Calcium 8.8 mg/dl (8.6-10.4) 04/20/18 08:11 Phosphorus 3.0 mg/dL (2.5-4.5) 04/20/18 08:11 Magnesium 1.7 mg/dL (1.6-2.3) 04/20/18 08:11 Total Bilirubin 0.3 mg/dL (0.2-1.3) 04/20/18 08:11 AST 24 U/L (17-59) 04/20/18 08:11 ALT 17 U/L (21-72) L D 04/20/18 08:11 Alkaline Phosphatase 189 U/L (38-126) H D 04/20/18 08:11 Troponin I < 0.0120 ng/mL (0.00-0.120) 04/17/18 14:37 Total Protein 6.3 g/dL (6.3-8.3) 04/20/18 08:11 Albumin 2.9 g/dL (3.5-5.0) L 04/20/18 08:11 Globulin 3.4 gm/dL (2.2-3.9) 04/20/18 08:11 Albumin/Globulin Ratio 0.8 (1.0-2.1) L 04/20/18 08:11 Triglycerides 72 mg/dL (0-149) D 04/18/18 07:56 Cholesterol 125 mg/dL (0-199) 04/18/18 07:56 LDL Cholesterol Direct 68 mg/dL (0-129) 04/18/18 07:56 HDL Cholesterol 35 mg/dL (30-70) 04/18/18 07:56 Amylase 51 U/L (30-110) 04/18/18 07:56 Lipase 32 U/L (23-300) 04/18/18 07:56 Free T4 1.43 ng/dL (0.78-2.19) 04/17/18 21:39 TSH 3rd Generation 1.89 mIU/L (0.46-4.68) 04/17/18 21:39 Venous Blood Potassium 5.1 mmol/L (3.6-5.2) 04/17/18 14:42 Urine Color Yellow (YELLOW) 04/17/18 14:37 Urine Clarity Clear (Clear) 04/17/18 14:37 Urine pH 5.0 (5.0-8.0) 04/17/18 14:37 Ur Specific Caldwell 1.018 (1.003-1.030) 04/17/18 14:37 Urine Protein 3+ mg/dL (NEGATIVE) H 04/17/18 14:37 Urine Glucose (UA) 3+ mg/dL (Normal) H 04/17/18 14:37 Urine Ketones 2+ mg/dL (NEGATIVE) H 04/17/18 14:37 Urine Blood 1+ (NEGATIVE) H 04/17/18 14:37 Urine Nitrate Negative (NEGATIVE) 04/17/18 14:37 Urine Bilirubin Negative (NEGATIVE) 04/17/18 14:37 Urine Urobilinogen Normal mg/dL (0.2-1.0) 04/17/18 14:37 Ur Leukocyte Esterase Neg Fei/uL (Negative) 04/17/18 14:37 Urine WBC (Auto) 1 /hpf (0-5) 04/17/18 14:37 Urine RBC (Auto) 4 /hpf (0-3) H 04/17/18 14:37 Hyaline Casts 3-5 /lpf (0-2) H 04/17/18 14:37 B-Hydroxybutyrate 9.47 mM (0.02-0.27) H 04/17/18 14:37 - Hospital Course Hospital Course: On admission: CC: nausea and vomiting This is a 42 year old male with PMH of DM, h/o of gluteal abscesses in the past, asthma, CAD with 4 stents approximately 8-9 years ago, NIDDM (uncontrolled) who presents to the ED due to vomiting and nausea since last night, nonbilious nonbloody. Pt reports some esophageal pain secondary to the extensive vomiting and some epigastric discomfort after vomiting. Pt came to the ED because the n ausea did not allow him to eat. He also reports worsening abscess to the left buttocks for the past few days, which has been very painful and draining lastnight. He denies fevers, chills, chest pain, sob, diarrhea, hematochezia, melena, dizziness, lightheadedness. However he does endorse feeling fatigued today. In the ED, pt noted to be hyperglycemic with AG of 33, with metabolic acidosis and left gluteal abscess in the ED. Pt noted to be hypotensive 80/50, but responded to NS IVF 1L bolus x 2, and is normotensive on evaluation. He was also given one dose of vancomycin, ciprofloxacin and flagyl. ICU consult requested for DKA. Surgery, Dr. Rose, consulted for abscess, will do I and D at bedside in ED. Hospital course: Pt was admitted to ICU. Started on an insulin gtt and aggressive hydration. Started on antibiotics for the abscess. Pt's gap closed and he was downgraded to the med/surg floor, where he continued to receive antibiotics. His WBC count has markedly decreased since admission. On discharge, he has no complaints and states that the pain in the left gluteal area is much improved. Endocrinology, Dr. Beckwith, was consulted for uncontrolled diabetes. His glucose has been well controlled after adjustment of his insulin regimen by Dr. Beckwith. He was given information on diabetes and how to use insulin and measure his glucose levels. Pt has no means of purchasing medications that have been prescribed. Dr. Carranza and I had a lengthy discussion with the patient about managing his medical problems the consequences of not adhering to medication/not follow up with physicians. The patient was instructed in smoking, etoh and drug use cessation and he agrees with adhering to this. Pt was provided with $[address] Carranza for help in purchasing medications, and he was instructed to obtain the rest of the money needed for his prescriptions. Pt reports understanding of his medical problems, including his high risk for DKA if he is not compliant with Insulin regimen. This is a summary of the hospital course, please see EMR for full details. Discharge Exam - Head Exam Head Exam: ATRAUMATIC, NORMAL INSPECTION - Eye Exam Eye Exam: EOMI, Normal appearance - ENT Exam ENT Exam: Mucous Membranes Moist - Respiratory Exam Respiratory Exam: Clear to PA & Lateral, NORMAL BREATHING PATTERN. absent: Decreased Breath Sounds, Rales, Rhonchi, Wheezes, Respiratory Distress - Cardiovascular Exam Cardiovascular Exam: REGULAR RHYTHM, +S1, +S2. absent: Tachycardia - GI/Abdominal Exam GI & Abdominal Exam: Normal Bowel Sounds, Soft. absent: Distended, Firm, Guarding, Tenderness - Extremities Exam Additional comments: No calf tenderness, no pedal swelling or edema. - Back Exam Back exam: NORMAL INSPECTION - Neurological Exam Neurological exam: Alert, Oriented x3 - Psychiatric Exam Psychiatric exam: Normal Affect, Normal Mood - Skin Skin Exam: Dry, Normal Color, Warm Additional comments: (+) induration surrounding incision and drainage site of left buttocks abscess Discharge Plan - Discharge Medications Prescriptions: RX: Albuterol HFA [Ventolin HFA 90 mcg/actuation (8 g)] 1 puff IH PRN PRN #1 inhaler PRN Reason: Shortness Of Breath Ciprofloxacin [Cipro] 500 mg PO BID #14 tab RX: Clindamycin [Cleocin] 300 mg PO TID 7 Days #21 cap RX: Clopidogrel [Plavix] 75 mg PO DAILY #14 tab Collagenase [Santyl] 30 applic TOP BID #1 tube RX: Insulin Human Isophane (NPH) [Novolin N] 20 unit SC HS #1 vial RX: Insulin Human Regular [Novolin R] 10 unit SC ACBD #1 vial RX: Metoprolol Succinate XL [Toprol XL] 25 mg PO DAILY #14 tab RX: Ramipril [Altace] 5 mg PO DAILY #14 cap RX: Rosuvastatin Calcium [Crestor] 10 mg PO HS #14 tab - Follow Up Plan Condition: CRITICAL Disposition: HOME/ ROUTINE Instructions: Sepsis, Adult (DC), Diabetic Ketoacidosis (DC), Diabetic Ketoacidosis (GEN), Abscess (GEN) Additional Instructions: Pt is medically stable for discharge home as per Dr. Carranza. 1. Pt will be provided with prescriptions for, and take as prescribed, the following medications: Albuterol HFA 1 puff inhaled as needed every 4 hours for shortness of breath, Ciprofloxacin 500 mg by mouth three times a day for 7 days, Plavix 75 mg by mouth once a day, Insulin NPH 20 units subcutaneously at night time every night, Insulin regular 10 units subcutaneously before breakfast and dinner, Metoprolol Succinate XL 25 mg by mouth once daily, Ramipril 5 mg by mouth once daily, Crestor 10 mg by mouth once at nighttime. Please apply Santyl cream twice a day to the wound. 2. Pt should call [facility] to set up appointment within the next 2 weeks. 3. Pt should follow up with surgery, Dr. Gavin, for monitoring of the abscess within 1 week 4. Please return to the Emergency Department if symptoms worsen. Instructions explained to patient, who understands and agrees with discharge plan. Referrals: [facility] [Outside] Tunde Gavin Jr., MD [Staff Provider] - <Castillo Carranza - Last Filed: 04/20/18 17:35> Provider - Provider Date of Admission: 04/17/18 15:42 Attending physician: Castillo Carranza, DO Hospital Course - Lab Results Lab Results: Micro Results 04/17/18 14:00 Blood Blood Culture - Preliminary NO GROWTH AFTER 3 DAYS 04/17/18 14:30 Blood Blood Culture - Preliminary NO GROWTH AFTER 3 DAYS 04/18/18 18:23 Nose MRSA Culture - Final MRSA NOT DETECTED 04/17/18 Unknown Naris MRSA Culture (Admit) - Final MRSA NOT DETECTED 04/17/18 18:06 Abscess - Buttock-Left Gram Stain - Final 04/17/18 18:06 Abscess - Buttock-Left Wound Culture - Final Staphylococcus Aureus Most Recent Lab Values WBC 12.5 K/uL (4.8-10.8) H 04/20/18 08:11 RBC 3.64 Mil/uL (4.40-5.90) L 04/20/18 08:11 Hgb 10.5 g/dL (12.0-18.0) L 04/20/18 08:11 Hct 30.7 % (35.0-51.0) L 04/20/18 08:11 MCV 84.2 fL (80.0-94.0) 04/20/18 08:11 MCH 28.8 pg (27.0-31.0) 04/20/18 08:11 MCHC 34.3 g/dL (33.0-37.0) 04/20/18 08:11 RDW 13.2 % (11.5-14.5) 04/20/18 08:11 Plt Count 405 K/uL (130-400) H 04/20/18 08:11 MPV 7.8 fL (7.2-11.7) 04/20/18 08:11 Neut % (Auto) 67.5 % (50.0-75.0) 04/20/18 08:11 Lymph % (Auto) 18.0 % (20.0-40.0) L 04/20/18 08:11 Valencia % (Auto) 12.3 % (0.0-10.0) H 04/20/18 08:11 Eos % (Auto) 1.3 % (0.0-4.0) 04/20/18 08:11 Baso % (Auto) 0.9 % (0.0-2.0) 04/20/18 08:11 Neut # (Auto) 8.5 K/uL (1.8-7.0) H 04/20/18 08:11 Lymph # (Auto) 2.3 K/uL (1.0-4.3) 04/20/18 08:11 Valencia # (Auto) 1.5 K/uL (0.0-0.8) H 04/20/18 08:11 Eos # (Auto) 0.2 K/uL (0.0-0.7) 04/20/18 08:11 Baso # (Auto) 0.1 K/uL (0.0-0.2) 04/20/18 08:11 Neutrophils % (Manual) 74 % (50-75) 04/18/18 12:09 Band Neutrophils % 1 % (0-2) 04/18/18 12:09 Lymphocytes % (Manual) 8 % (20-40) L 04/18/18 12:09 Monocytes % (Manual) 16 % (0-10) H 04/18/18 12:09 Basophils % (Manual) 1 % (0-2) 04/18/18 12:09 Platelet Estimate Normal (NORMAL) 04/18/18 12:09 RBC Morphology Normal 04/17/18 14:37 Hypochromasia (manual) Slight 04/18/18 12:09 Poikilocytosis (manual Slight 04/18/18 12:09 Anisocytosis (manual) Slight 04/18/18 12:09 PT 13.9 SECONDS (9.7-12.2) H 04/18/18 07:56 INR 1.3 04/18/18 07:56 APTT 30 SECONDS (21-34) 04/18/18 07:56 pO2 31 mm/Hg (30-55) 04/17/18 14:42 VBG pH 7.14 (7.32-7.43) L* 04/17/18 14:42 VBG pCO2 30 mmHg (40-60) L 04/17/18 14:42 VBG HCO3 9.7 mmol/L 04/17/18 14:42 VBG Total CO2 11.1 mmol/L (22-28) L 04/17/18 14:42 VBG O2 Sat (Calc) 57.3 % (40-65) 04/17/18 14:42 VBG Base Excess -17.5 mmol/L (0.0-2.0) L 04/17/18 14:42 VBG Potassium 5.1 mmol/L (3.6-5.2) 04/17/18 14:42 Sodium 139.0 mmol/l (132-148) 04/17/18 14:42 Chloride 97.0 mmol/L (98-107) L 04/17/18 14:42 Glucose 582 mg/dl (75-110) H* 04/17/18 14:42 Lactate 2.5 mmol/L (0.7-2.1) H 04/17/18 14:42 FiO2 21.0 % 04/17/18 14:42 Crit Value Called To Tyra chávez 04/17/18 14:42 Crit Value Called By Shara coulter 04/17/18 14:42 Crit Value Read Back Y 04/17/18 14:42 Blood Gas Notified Time 1450 04/17/18 14:42 Sodium 134 mmol/L (132-148) 04/20/18 08:11 Potassium 4.1 mmol/L (3.6-5.2) 04/20/18 08:11 Chloride 100 mmol/L (98-107) 04/20/18 08:11 Carbon Dioxide 27 mmol/L (22-30) 04/20/18 08:11 Anion Gap 11 (10-20) 04/20/18 08:11 BUN 16 mg/dL (9-20) 04/20/18 08:11 Creatinine 0.6 mg/dL (0.8-1.5) L 04/20/18 08:11 Est GFR ( Amer) > 60 04/20/18 08:11 Est GFR (Non-Af Amer) > 60 04/20/18 08:11 POC Glucose (mg/dL) 211 mg/dL (65-110) H 04/20/18 16:41 Random Glucose 181 mg/dL (75-110) H 04/20/18 08:11 Hemoglobin A1c 15.0 % (4.2-6.5) H 04/17/18 21:39 Serum Osmolality 334 mosm/kg (272-300) H 04/17/18 14:37 Lactic Acid 3.0 mmol/L (0.7-2.1) H 04/17/18 19:00 Calcium 8.8 mg/dl (8.6-10.4) 04/20/18 08:11 Phosphorus 3.0 mg/dL (2.5-4.5) 04/20/18 08:11 Magnesium 1.7 mg/dL (1.6-2.3) 04/20/18 08:11 Total Bilirubin 0.3 mg/dL (0.2-1.3) 04/20/18 08:11 AST 24 U/L (17-59) 04/20/18 08:11 ALT 17 U/L (21-72) L D 04/20/18 08:11 Alkaline Phosphatase 189 U/L (38-126) H D 04/20/18 08:11 Troponin I < 0.0120 ng/mL (0.00-0.120) 04/17/18 14:37 Total Protein 6.3 g/dL (6.3-8.3) 04/20/18 08:11 Albumin 2.9 g/dL (3.5-5.0) L 04/20/18 08:11 Globulin 3.4 gm/dL (2.2-3.9) 04/20/18 08:11 Albumin/Globulin Ratio 0.8 (1.0-2.1) L 04/20/18 08:11 Triglycerides 72 mg/dL (0-149) D 04/18/18 07:56 Cholesterol 125 mg/dL (0-199) 04/18/18 07:56 LDL Cholesterol Direct 68 mg/dL (0-129) 04/18/18 07:56 HDL Cholesterol 35 mg/dL (30-70) 04/18/18 07:56 Amylase 51 U/L (30-110) 04/18/18 07:56 Lipase 32 U/L (23-300) 04/18/18 07:56 Free T4 1.43 ng/dL (0.78-2.19) 04/17/18 21:39 TSH 3rd Generation 1.89 mIU/L (0.46-4.68) 04/17/18 21:39 Venous Blood Potassium 5.1 mmol/L (3.6-5.2) 04/17/18 14:42 Urine Color Yellow (YELLOW) 04/17/18 14:37 Urine Clarity Clear (Clear) 04/17/18 14:37 Urine pH 5.0 (5.0-8.0) 04/17/18 14:37 Ur Specific Caldwell 1.018 (1.003-1.030) 04/17/18 14:37 Urine Protein 3+ mg/dL (NEGATIVE) H 04/17/18 14:37 Urine Glucose (UA) 3+ mg/dL (Normal) H 04/17/18 14:37 Urine Ketones 2+ mg/dL (NEGATIVE) H 04/17/18 14:37 Urine Blood 1+ (NEGATIVE) H 04/17/18 14:37 Urine Nitrate Negative (NEGATIVE) 04/17/18 14:37 Urine Bilirubin Negative (NEGATIVE) 04/17/18 14:37 Urine Urobilinogen Normal mg/dL (0.2-1.0) 04/17/18 14:37 Ur Leukocyte Esterase Neg Fei/uL (Negative) 04/17/18 14:37 Urine WBC (Auto) 1 /hpf (0-5) 04/17/18 14:37 Urine RBC (Auto) 4 /hpf (0-3) H 04/17/18 14:37 Hyaline Casts 3-5 /lpf (0-2) H 04/17/18 14:37 B-Hydroxybutyrate 9.47 mM (0.02-0.27) H 04/17/18 14:37 Attending/Attestation - Attestation I have personally seen and examined this patient.: Yes I have fully participated in the care of the patient.: Yes I have reviewed all pertinent clinical information, including history, physical exam and plan: Yes Notes (Text): Medical attending: Please note: we gave the patient $60 dollars in brown to help cover the cost of his medication. I am being told that the total cost would be around $120 dollars so it is his responsibility to come up with the other half. He needs to follow up in the [facility] as well. Patient has been warned that should he come back to [facility] with something such as alcohol or drug abuse that we would not look kindly upon him... Hopefully he will use this additional money responsibly and buy his medication and diabetic supplies since he really needs these. I reviewed the above note by the medical technician and agree with the above. The patient was seen and examined by me with the medical technician as well. Family member was present at bedside as well. The patient's blood glucoses have been much better. He reports he is no longer thirtsy and polyuria. He will need to continue with the PO abx as well thank you Castillo Carranza
[2018-04-20 16:44] VITALS: BP 148/88; PULSE 71; TEMP 98; O2SAT 100
--- NOTE | 2018-04-20 17:56 | CARD ---
APPROVED REPORT Date of service: 04/17/2018 EKG Measurement Heart [id number] <Conclusion> Sinus tachycardia with occasional premature ventricular complexes Otherwise normal ECG
--- NOTE | 2018-04-21 06:16 | PN ---
DATE: 04/20/2018 LOCATION: Room 357. SUBJECTIVE: This is a 42-year-old male with recent uncontrolled type 2 insulin-requiring diabetes, now being followed closely for metabolic management. His glycemic levels are fluctuating but improved, and the glucose values have ranged from 171 to 182 mg/dL. LABORATORY DATA: His latest chemistries showed a BUN of 16, sodium 134, potassium 4.1, chloride 100, CO2 of 27, glucose 181 and creatinine 0.6. PLAN: So at this time, we will continue the same basal and bolus insulin regimen as given with regular insulin given as 10 units before breakfast and dinner as ordered. We will also continue the basal insulin given as NPH at 20 units SubQ at bedtime daily as given. We will obtain serial chemistries and supplement accordingly as needed. We will follow. Gabby Beckwith MD
== END 2018-04-20 18:12 | disposition home or self-care (01) | DRG 720 ==
LOC: C.ER 12:19 → C.9E 15:42 → C.9I 17:31 → C.3T 04-18 17:41
PROVIDERS: ADMIT Hospitalist; ATTEND Hospitalist
DX: A41.9 Sepsis, unspecified organism (principal); E11.10 Type 2 diabetes mellitus with ketoacidosis without coma; I10 Essential (primary) hypertension; E78.5 Hyperlipidemia, unspecified; L02.415 Cutaneous abscess of right lower limb; E86.0 Dehydration; F17.210 Nicotine dependence, cigarettes, uncomplicated; I25.10 Atherosclerotic heart disease of native coronary artery without angina pectoris; J45.909 Unspecified asthma, uncomplicated; L02.31 Cutaneous abscess of buttock; Z79.4 Long term (current) use of insulin; Z95.5 Presence of coronary angioplasty implant and graft; Z88.0 Allergy status to penicillin